=== PATIENT | female | born 1975 | race Caucasian/White ===

== ENCOUNTER 2016-08-01 21:31 | Emergency (ER) | payer SELFPAY ==
[~2016-08-01] VITALS: Ht 160 cm; Wt 52.0 kg
[~2016-08-01 21:31] MED LIST: CLON0.2T PO; METO25 PO
[2016-08-01 22:02] VITALS: BP 121/79; PULSE 92; RESP 16; TEMP 97.8; O2SAT 98
[2016-08-01] MEDS ORDERED: RESP: LIDOCAINE HCL 4% PF 5 ML NEB NEB ONE (22:30)
[2016-08-01] MEDS ORDERED: DEXAMETHASONE SOD PHOS 4 MG/ML VIAL IM ONE (22:30)
--- NOTE | 2016-08-01 22:33 | PD ---
HPI Chief Complaint: Cold / Flu Symptoms Time Seen by Provider: 22:22 Travel History International Travel<30 days: No Contact w/Intl Traveler<30days: No Traveled to known affect area: No History of Present Illness HPI The patient is a 41-year-old female who presents to the emergency department for shortness of breath. The patient has a one-week history of cough and cold symptoms with congestion and a dry nonproductive cough. She also complains of bilateral lower to mid thoracic back pain secondary to coughing. The patient does have a history tobacco use, last cigarette was 5 hours ago. The patient does complain of "rattling" in her lungs. The patient denies any fever, chills, or sweats. The patient does have a history of bronchitis, denies any known history of pulmonary embolism or congestive heart failure. The patient denies any associated fever, chills, or sweats. Symptoms are moderate, possibly exacerbated by recent upper respiratory infection, and there are no current alleviating factors. PFSH Past Medical History Anxiety: Yes Depression: Yes Heart Rhythm Problems: Yes (HX OF TACHYCARDIA) Cancer: No Cardiovascular Problems: Yes Cerebrovascular Accident: Yes (2009 [place] BLIND RIGHT EYE) Diminished Hearing: No Endocrine: No Genitourinary: No Hypertension: Yes (NOT TAKING MEDICATION CURRENTLY) Immune Disorder: No Musculoskeletal: Yes Neurologic: Yes (SEIZURE X 04 JUL 2013) Psychiatric: Yes Reproductive: No Respiratory: No Tetanus Vaccination: < 5 Years Influenza Vaccination: No ?: Not : 5 Para: 4 Miscarriage: 1 Tubal Ligation: Yes Past Surgical History Gynecologic Surgery: Yes (TUBAL 1996) Other Surgery: Yes Social History Alcohol Use: Yes (2 BEERS NIGHTLY) Tobacco Use: Yes (1/2 PPD) Substance Use: Yes (MARIJUANA) Allergies-Medications (Allergen,Severity, Reaction): Coded Allergies: Penicillin (Verified Allergy, Severe, THROAT SWELLING, 08/01/16) Tramadol (Unverified Allergy, Severe, 08/01/16) SEIZURE Reported Meds & Prescriptions Reported Meds & Active Scripts Active No Active Prescriptions or Reported Medications Review of Systems Except as stated in HPI: all other systems reviewed are Neg General / Constitutional: No: Fever Cardiovascular: No: Chest Pain or Discomfort Respiratory: Positive: Cough, Shortness of Breath, Wheezing Gastrointestinal: No: Nausea, Vomiting, Abdominal Pain Musculoskeletal: Positive: Pain (back pain secondary to coughing) Physical Exam Narrative GENERAL: Awake, alert, 41-year-old female who appears her stated age and is in no acute respiratory distress. SKIN: Warm and dry. HEAD: Atraumatic. Normocephalic. EYES: Pupils equal and round. No scleral icterus. No injection or drainage. ENT: Poor dentition, breath smells of alcohol. NECK: Trachea midline. No JVD. CARDIOVASCULAR: Regular rate and rhythm. No murmur appreciated. RESPIRATORY: No accessory muscle use. Scattered rhonchi and a few late expiratory wheezes noted. MUSCULOSKELETAL: No obvious deformities. No clubbing. No cyanosis. No edema. NEUROLOGICAL: Awake and alert. No obvious cranial nerve deficits. Motor grossly within normal limits. Normal speech. PSYCHIATRIC: Appropriate mood and affect; insight and judgment normal. Data Data Last Documented VS Vital Signs Date Time Temp Pulse Resp B/P Pulse Ox O2 Delivery O2 Flow Rate FiO2 08/01/16 22:25 18 100 Room Air 08/01/16 22:02 97.8 92 121/79 Orders Chest, Single Ap (08/01/16 22:27) Oximetry (08/01/16 22:27) Albuterol-Ipratropium Neb (Duoneb Neb) (08/01/16 22:30) Dexamethasone Inj (Decadron Inj) (08/01/16 22:30) Lidocaine Pf 4% Neb (Lidocaine Pf 4% Neb (08/01/16 22:30) MDM Medical Decision Making Medical Screen Exam Complete: Yes Emergency Medical Condition: Yes Medical Record Reviewed: Yes Interpretation(s) Last Impressions Chest X-Ray 08/01/162 Signed Impressions: Service Date/Time: Monday, August 01, 2016 22:53 - CONCLUSION: No acute disease. No significant change has occurred. Pete Torres MD Differential Diagnosis Differential diagnoses includes bronchitis, pneumonia, pulmonary embolism, congestive heart failure, pleural effusion, URI, influenza, viral syndrome. Narrative Course The patient states she has difficulty swallowing pills, therefore, was administered Decadron 8 mg IM. The patient was then administered DuoNeb nebs 3 with respiratory lidocaine and chest x-ray was obtained. Chest x-rays unremarkable. The patient be discharged home on liquid prednisone and Bactrim as well as albuterol inhaler. The patient is advised to follow-up with gastroenterology for outpatient endoscopy as she has difficulty swallowing pills in his progress over the last several years. Patient may need direct visualization with anoscopy. Diagnosis Primary Impression: Bronchitis Patient Instructions: General Instructions Additional Instructions: Medications as directed. Stop smoking. Follow-up with GI on an outpatient basis for possible endoscopy. Return if symptoms worsen or progress. Work excuse for 2 days. Med/Other Pt SpecificInfo: Prescription(s) given Scripts Prednisolone Liq 15 Mg/5 Ml Soln45 Mg PO DAILY 4 Days Ref 0 Prov:Cuauhtemoc Hein MD 08/01/16 Albuterol 18 GM Inh (Ventolin Hfa 18 GM Inh)90 Mcg/Act Aer2 Puff INH Q4H PRN ( SHORTNESS OF BREATH) #1 INHALER Ref 0 Prov:Cuauhtemoc Hein MD 08/01/16 Sulfamethoxazole-Trimethoprim Liq 200-40 Mg/5 Ml Susp20 Ml PO Q12H 7 Days Ref 0 Prov:Cuauhtemoc Hein MD 08/01/16 Disposition: 01 DISCHARGE HOME Condition: Stable Cuauhtemoc Hein MD Aug 01, 2016 22:33
[2016-08-01] MEDS: RESP: ALBUTEROL 2.5 MG/IPRATROPIUM 0.5 MG NEB (SCH) INH ×3 (22:37→23:04)
--- NOTE | 2016-08-01 23:10 | RADHPO ---
EXAM DATE/TIME: 08/01/2016 22:53 [facility] COMPARISON: CHEST SINGLE AP, October 06, 2012, 17:55. INDICATIONS : Shortness of breath, wheezing for 24 hours MEDICAL HISTORY : None. SURGICAL HISTORY : None. ENCOUNTER: Initial ACUITY: 1 day PAIN SCORE: 0/10 LOCATION: Bilateral chest FINDINGS: A single view of the chest demonstrates the lungs to be symmetrically aerated without evidence of mas s, infiltrate or effusion. The cardiomediastinal contours are unremarkable. Osseous structures are intact. CONCLUSION: No acute disease. No significant change has occurred. Pete Torres MD on August 01, 2016 at 23:07 Board Certified Radiologist. This report was verified electronically.
[2016-08-01] MEDS ORDERED: SULF20OR2 PO (23:26)
[2016-08-01] MEDS ORDERED: PRED15UDC PO (23:26)
[2016-08-01] MEDS ORDERED: VENTAER INH (23:26)
[2016-08-01 23:38] VITALS: RESP 18; O2SAT 99
[2016-08-01 23:39] VITALS: BP 118/78
== END 2016-08-01 23:42 | disposition home or self-care (01) ==
LOC: PHEFT 21:31
DX: J40 Bronchitis, not specified as acute or chronic (principal); M54.6 Pain in thoracic spine; I10 Essential (primary) hypertension; R13.10 Dysphagia, unspecified; F17.200 Nicotine dependence, unspecified, uncomplicated; Z87.09 Personal history of other diseases of the respiratory system; Z86.59 Personal history of other mental and behavioral disorders; Z86.79 Personal history of other diseases of the circulatory system; Z87.39 Personal history of other diseases of the musculoskeletal system and connective tissue; Z86.69 Personal history of other diseases of the nervous system and sense organs
CPT/HCPCS: 71010; 94640; 94664; 96372; 99284; J1100

== ENCOUNTER 2016-11-30 09:00 | Inpatient (IN) | payer SELFPAY ==
[~2016-11-30] VITALS: Ht 160 cm; Wt 54.4 kg
[2016-11-30] VITALS (15 sets, daily range): BP systolic 106–135; BP diastolic 70–93; PULSE 72–111; RESP 15–18; TEMP 98.1–99.4; O2SAT 95–100
[~2016-11-30 09:00] MED LIST changes: -CLON0.2T PO; -METO25 PO; +PRED15UDC PO; +SULF20OR2 PO; +VENTAER INH
--- NOTE | 2016-11-30 09:26 | PD ---
HPI Chief Complaint: Right shoulder pain Time Seen by Provider: 09:17 Travel History International Travel<30 days: No Contact w/Intl Traveler<30days: No History of Present Illness HPI 41yo F with PMH of tachycardia, HTN, anxiety presents to the ED with c/o right shoulder pain. States she woke up with ecchymoses on right shoulder 2 weeks ago and then the pain radiates down the right arm with some tingling in the tips of the fingers. Pain also radiates to right chest and is sharp and worst with right arm movement. Pt denies any trauma. States she does feel sob. Denies any fever, n/v, abdominal pain, focal weakness or numbness. States she has not been taking clonidine which helped with her tachycardia because of insurance. Denies any history of PE, DVT, recent travel. PFSH Past Medical History Anxiety: Yes Depression: Yes Heart Rhythm Problems: Yes (HX OF TACHYCARDIA) Cancer: No Cardiovascular Problems: Yes Cerebrovascular Accident: Yes (2009 [place] BLIND RIGHT EYE?) Diminished Hearing: No Endocrine: No Genitourinary: No Hypertension: Yes (NOT TAKING MEDICATION CURRENTLY) Immune Disorder: No Musculoskeletal: Yes Neurologic: Yes (SEIZURE X 04 JUL 2013) Psychiatric: Yes Reproductive: No Respiratory: No Pneumonia: Yes Tetanus Vaccination: < 5 Years Influenza Vaccination: No ?: Not : 5 Para: 4 Miscarriage: 1 Tubal Ligation: Yes Past Surgical History Gynecologic Surgery: Yes (TUBAL 1997) Other Surgery: Yes Social History Alcohol Use: Yes (4 BEERS NIGHTLY) Tobacco Use: Yes (1/2 PPD) Substance Use: Yes (MARIJUANA) Allergies-Medications (Allergen,Severity, Reaction): Coded Allergies: Penicillin (Verified Allergy, Severe, THROAT SWELLING, 11/30/16) Tramadol (Unverified Allergy, Severe, 11/30/16) SEIZURE Reported Meds & Prescriptions Reported Meds & Active Scripts Active No Active Prescriptions or Reported Medications Review of Systems Except as stated in HPI: all other systems reviewed are Neg Physical Exam Narrative GENERAL: 41yo F not in distress. SKIN: Focused skin assessment warm/dry. HEAD: Atraumatic. Normocephalic. CARDIOVASCULAR: Regular rate and rhythm. No murmur appreciated. RESPIRATORY: No accessory muscle use. Clear to auscultation. Breath sounds equal bilaterally. CHEST WALL: +TTP right chest. No rash. Worst pain with right arm movement. GASTROINTESTINAL: Abdomen soft, non-tender, nondistended. RECTAL: No external hemorrhoids. Yellow stool, hemaprompt positive. MUSCULOSKELETAL: RUE: No ecchymoses in right shoulder. Tenderness to light palpation in entire arm. No edema. No erythema. No open wounds. Sensation intact. FROM in digits. Radial pulse 2+. NEUROLOGICAL: Awake and alert. No obvious cranial nerve deficits. Motor grossly within normal limits. Normal speech. PSYCHIATRIC: Anxious appearing. Data Data Last Documented VS Vital Signs Date Time Temp Pulse Resp B/P Pulse Ox O2 Delivery O2 Flow Rate FiO2 11/30/16 11:07 97 18 114/83 99 Room Air 11/30/16 09:18 99.2 Orders Basic Metabolic Panel (Bmp) (11/30/16 09:18) Complete Blood Count With Diff (11/30/16 09:18) D-Dimer (11/30/16 09:18) Magnesium (Mg) (11/30/16 09:18) Prothrombin Time / Inr (Pt) (11/30/16 09:18) Act Partial Throm Time (Ptt) (11/30/16 09:18) Troponin I (11/30/16 09:18) Chest, Single Ap (11/30/16 09:18) Ecg Monitoring (11/30/16 09:18) Bilateral Bp Monitoring (11/30/16 09:18) Iv Access Insert/Monitor (11/30/16 09:18) Oximetry (11/30/16 09:18) Oxygen Administration (11/30/16 09:18) Shoulder, Limited(2vws) (11/30/16 ) Forearm (2vws) (11/30/16 ) Clonidine (Catapres) (11/30/16 09:30) Sodium Chlor 0.9% 1000 Ml Inj (Ns 1000 M (11/30/16 09:30) Lorazepam Inj (Ativan Inj) (11/30/16 09:30) Bhcg Screen Qualitative (11/30/16 09:25) Ct Pulmonary Angiogram (11/30/16 ) Type And Screen (11/30/16 11:09) Red Blood Cells (Rbc) (11/30/16 11:09) Blood Product Administration .UPON TRANSFUSION (11/30/16 11:09) Sodium Chlor 0.9% 250 Ml Inj (Ns 250 Ml (11/30/16 11:15) Iohexol 350 Inj (Omnipaque 350 Inj) (11/30/16 11:10) Pantoprazole Inj (Protonix Inj) (11/30/16 11:30) Admit Order (Ed Use Only) (11/30/16 11:57) Admit To Inpatient (11/30/16 ) Vital Signs (Adult) Q4H (11/30/16 11:56) Activity Oob Ad Lara (11/30/16 11:56) Fish Straightener / Telemetry .CONTINUOUS (11/30/16 11:56) Diet Heart Healthy (11/30/16 Lunch) Sodium Chloride 0.9% Flush (Ns Flush) (11/30/16 12:00) Sodium Chloride 0.9% Flush (Ns Flush) (11/30/16 21:00) Acetaminophen (Tylenol) (11/30/16 12:00) Ondansetron Inj (Zofran Inj) (11/30/16 12:00) Basic Metabolic Panel (Bmp) (12/01/16 06:00) Complete Blood Count With Diff (12/01/16 06:00) Resp Oxygen Nilay C Titrat 1-4 L (11/30/16 ) Scd Bilateral/Knee High UMESH.BID (11/30/16 11:56) Naloxone Inj (Narcan Inj) (11/30/16 12:00) Docusate Sodium-Senna (Marisol-Colace) (11/30/16 21:00) Magnesium Hydroxide Liq (Milk Of Magnesi (11/30/16 12:00) Sennosides (Senokot) (11/30/16 12:00) Bisacodyl Supp (Dulcolax Supp) (11/30/16 12:00) Lactulose Liq (Lactulose Liq) (11/30/16 12:00) Inpatient Certification (11/30/16 ) Consult Gastroenterology (11/30/16 ) Iron/Tibc Profile (11/30/16 11:56) Ferritin (11/30/16 11:56) Labs Laboratory Tests Test 11/30/16 09:25 White Blood Count 5.3 TH/MM3 Red Blood Count 3.51 MIL/MM3 Hemoglobin 7.1 GM/DL Hematocrit 24.3 % Mean Corpuscular Volume 69.2 FL Mean Corpuscular Hemoglobin 20.1 PG Mean Corpuscular Hemoglobin 29.0 % Concent Red Cell Distribution Width 22.9 % Platelet Count 247 TH/MM3 Mean Platelet Volume 7.9 FL Neutrophils (%) (Auto) % Lymphocytes (%) (Auto) % Monocytes (%) (Auto) % Eosinophils (%) (Auto) % Basophils (%) (Auto) % Neutrophils # (Auto) TH/MM3 Lymphocytes # (Auto) TH/MM3 Monocytes # (Auto) TH/MM3 Eosinophils # (Auto) TH/MM3 Basophils # (Auto) TH/MM3 CBC Comment AUTO DIFF Differential Total Cells 100 Counted Neutrophils % (Manual) 60 % Lymphocytes % 27 % Monocytes % 5 % Eosinophils % 5 % Basophils % 3 % Neutrophils # (Manual) 3.2 TH/MM3 Differential Comment FINAL DIFF MANUAL Platelet Morphology Comment NORMAL Target Cells 2+ Ovalocytes 1+ Stomatocytes 2+ Prothrombin Time 11.2 SEC Prothromb Time International 1.0 RATIO Ratio Activated Partial 25.1 SEC Thromboplast Time D-Dimer Quantitative (PE/DVT) 0.54 MG/L FEU Sodium Level 149 MEQ/L Potassium Level 3.5 MEQ/L Chloride Level 112 MEQ/L Carbon Dioxide Level 29.1 MEQ/L Anion Gap 8 MEQ/L Blood Urea Nitrogen LESS THAN 1 MG/DL Creatinine 0.42 MG/DL Estimat Glomerular Filtration 165 ML/MIN Rate Random Glucose 120 MG/DL Calcium Level 7.8 MG/DL Magnesium Level 2.1 MG/DL Troponin I LESS THAN 0.02 NG/ML Beta HCG, Qualitative LESS THAN 1 MIU/ML MDM Medical Decision Making Medical Screen Exam Complete: Yes Emergency Medical Condition: Yes Interpretation(s) EKG: Sinus tachycardia at 115bpm. Normal axis. No ST segment elevation or depression. Laboratory Tests Test 11/30/16 09:25 White Blood Count 5.3 TH/MM3 (4.0-11.0) Red Blood Count 3.51 MIL/MM3 (4.00-5.30) Hemoglobin 7.1 GM/DL (11.6-15.3) Hematocrit 24.3 % (35.0-46.0) Mean Corpuscular Volume 69.2 FL (80.0-100.0) Mean Corpuscular Hemoglobin 20.1 PG (27.0-34.0) Mean Corpuscular Hemoglobin 29.0 % Concent (32.0-36.0) Red Cell Distribution Width 22.9 % (11.6-17.2) Platelet Count 247 TH/MM3 (150-450) Mean Platelet Volume 7.9 FL (7.0-11.0) Neutrophils (%) (Auto) % (16.0-70.0) Lymphocytes (%) (Auto) % (9.0-44.0) Monocytes (%) (Auto) % (0.0-8.0) Eosinophils (%) (Auto) % (0.0-4.0) Basophils (%) (Auto) % (0.0-2.0) Neutrophils # (Auto) TH/MM3 (1.8-7.7) Lymphocytes # (Auto) TH/MM3 (1.0-4.8) Monocytes # (Auto) TH/MM3 (0-0.9) Eosinophils # (Auto) TH/MM3 (0-0.4) Basophils # (Auto) TH/MM3 (0-0.2) CBC Comment AUTO DIFF Differential Total Cells 100 Counted Neutrophils % (Manual) 60 % (16-70) Lymphocytes % 27 % (9-44) Monocytes % 5 % (0-8) Eosinophils % 5 % (0-4) Basophils % 3 % (0-2) Neutrophils # (Manual) 3.2 TH/MM3 (1.8-7.7) Differential Comment FINAL DIFF MANUAL Platelet Morphology Comment NORMAL (NORMAL) Target Cells 2+ (NORMAL) Ovalocytes 1+ (NORMAL) Stomatocytes 2+ (NORMAL) Prothrombin Time 11.2 SEC (9.8-11.6) Prothromb Time International 1.0 RATIO Ratio Activated Partial 25.1 SEC Thromboplast Time (24.3-30.1) D-Dimer Quantitative (PE/DVT) 0.54 MG/L FEU (0.00-0.50) Sodium Level 149 MEQ/L (136-145) Potassium Level 3.5 MEQ/L (3.5-5.1) Chloride Level 112 MEQ/L (98-107) Carbon Dioxide Level 29.1 MEQ/L (21.0-32.0) Anion Gap 8 MEQ/L (5-15) Blood Urea Nitrogen LESS THAN 1 MG/DL (7-18) Creatinine 0.42 MG/DL (0.50-1.00) Estimat Glomerular Filtration 165 ML/MIN Rate (>89) Random Glucose 120 MG/DL (74-106) Calcium Level 7.8 MG/DL (8.5-10.1) Magnesium Level 2.1 MG/DL (1.5-2.5) Troponin I LESS THAN 0.02 NG/ML (0.02-0.05) Beta HCG, Qualitative LESS THAN 1 MIU/ML (0-5) Last Impressions Chest X-Ray 11/30/16 0918 Signed Impressions: Service Date/Time: Wednesday, November 30, 2016 09:48 - CONCLUSION: No acute disease. Steven Knox MD Shoulder X-Ray 11/30/16 0000 Signed Impressions: Service Date/Time: Wednesday, November 30, 2016 09:52 - CONCLUSION: Negative for fracture or dislocation. Follow up in 7-10 days is suggested if symptoms persist. Kris Foster MD FACR Radius/Ulna X-Ray 11/30/16 0000 Signed Impressions: Service Date/Time: Wednesday, November 30, 2016 09:59 - CONCLUSION: Negative for fracture or dislocation. Follow up in 7-10 days is suggested if symptoms persist. Kris Foster MD FACR CT Angiography 11/30/16 0000 Signed Impressions: Service Date/Time: Wednesday, November 30, 2016 10:40 - CONCLUSION: 1. No evidence of pulmonary embolism. 2. Cardiomegaly. 3. Minimal posterior bibasilar atelectasis. 4. Enlarged fatty liver. Israel Naranjo MD Differential Diagnosis Musculoskeletal pain vs. atypical pain vs. anxiety vs. dehydration vs. PE Narrative Course 41yo F with atypical right sided chest pain and sob. Labs reviewed, no leukocytosis. H/H is 7.1/24.3. Upon further questioning, pt states she does have a few weeks of black stool. Stool is yellow but hemaprompt positive. Since pt is symptomatic with sob, will transfuse 1 unit of PRBC and give protonix. Pt admits to drinking alcohol daily but never had GI bleed. Sodium is elevated at 149. Troponin is negative. is negative. CXR negative. Xray right forearm negative. Xray right shoulder negative. D-dimer is mildly elevated at 0.54, will obtain CT angio to rule out PE. CT angio negative for PE. Pt initially tachycardic at 110s-120s. Given clonidine, ativan and HR is now 90s. Discussed with Dr. Cotto and accepted to his service. [facility] Point of Care Internal Pos. & Neg. Controls: Passed Fecal Specimen Occult Blood: Positive Diagnosis Primary Impression: Symptomatic anemia Admitting Information Admitting Physician Requests: Observation Scripts No Active Prescriptions or Reported Meds Griselda Carrillo DO Nov 30, 2016 09:26
[2016-11-30 09:30] LABS: HEMATOCRIT 24.3 % (35.0-46.0); MEAN CELL VOLUME 69.2 FL (80.0-100.0); MEAN CORPUSCULAR HEMOGLOBIN 20.1 PG (27.0-34.0); PLATELET COUNT 247 TH/MM3 (150-450); RED BLOOD COUNT 3.51 MIL/MM3 (4.00-5.30); RED CELL DISTRIBUTION WIDTH 22.9 % (11.6-17.2); WHITE BLOOD COUNT 5.3 TH/MM3 (4.0-11.0)
[2016-11-30] MEDS ORDERED: SODIUM CHLOR 0.9% 1000 ML INJ 1,000 ML IV ONE (09:30)
[2016-11-30] MEDS ORDERED: LORazepam 2 MG/ML VIAL IV PUSH ONE (09:30)
[2016-11-30] MEDS ORDERED: cloNIDine HCL 0.1 MG TAB PO ONE (09:30)
[2016-11-30 09:44] LABS: HEMO FLAGS AUTO DIFF
[2016-11-30 09:50] LABS: BICARBONATE 29.1 MEQ/L (21.0-32.0); BLOOD UREA NITROGEN LESS THAN 1 MG/DL (7-18); MAGNESIUM 2.1 MG/DL (1.5-2.5)
[2016-11-30 09:53] LABS: APTT (PATIENT) 25.1 SEC (24.3-30.1); GLOMERULAR FILTRATION RATE 165 ML/MIN (>89); PROTHROMBIN TIME - PATIENT 11.2 SEC (9.8-11.6)
[2016-11-30 09:55] LABS: ANION GAP 8 MEQ/L (5-15); CHLORIDE 112 MEQ/L (98-107); POTASSIUM 3.5 MEQ/L (3.5-5.1); SODIUM (NA) 149 MEQ/L (136-145)
[2016-11-30 09:58] LABS: BHCG SCREEN QUALITATIVE LESS THAN 1 MIU/ML (0-5)
--- NOTE | 2016-11-30 10:09 | RADRPT ---
EXAM DATE/TIME: 11/30/2016 09:52 [facility] COMPARISON: No previous studies available for comparison. INDICATIONS : Right shoulder pain with no known injury MEDICAL HISTORY : Hypertension. Smoker, Mini stroke SURGICAL HISTORY : None. ENCOUNTER: Initial ACUITY: 2 weeks PAIN SCORE: 5/10 LOCATION: Right anterior shoulder FINDINGS: Two view examination of the right shoulder demonstrates no evidence of fracture or dislocation. The glenohumeral and acromioclavicular joints are maintained. Bony mineralization is normal. CONCLUSION: Negative for fracture or dislocation. Follow up in 7-10 days is suggested if symptoms persist. Kris Foster MD FACR on November 30, 2016 at 10:05 Board Certified Radiologist. This report was verified electronically.
--- NOTE | 2016-11-30 10:12 | RADRPT ---
EXAM DATE/TIME: 11/30/2016 09:59 [facility] COMPARISON: No previous studies available for comparison. INDICATIONS : Right forearm pain with no known injury MEDICAL HISTORY : None. SURGICAL HISTORY : None. ENCOUNTER: Initial ACUITY: 2 weeks PAIN SCORE: 5/10 LOCATION: Right anterior forearm FINDINGS: Two view examination of the right forearm demonstrates no evidence of fracture or dislocation. Bony mineralization is normal. The soft tissue structures are intact. CONCLUSION: Negative for fracture or dislocation. Follow up in 7-10 days is suggested if symptoms persist. Kris Foster MD FACR on November 30, 2016 at 10:09 Board Certified Radiologist. This report was verified electronically.
--- NOTE | 2016-11-30 10:14 | RADRPT ---
EXAM DATE/TIME: 11/30/2016 09:48 [facility] COMPARISON: CHEST SINGLE AP, August 01, 2016, 22:53. INDICATIONS : Chest pain MEDICAL HISTORY : Hypertension. Smoker, Mini stroke SURGICAL HISTORY : None. ENCOUNTER: Initial ACUITY: 2 weeks PAIN SCORE: 5/10 LOCATION: Right anterior Chest FINDINGS: A single view of the chest demonstrates the lungs to be symmetrically aerated without evidence of mas s, infiltrate or effusion. The cardiomediastinal contours are unremarkable. Osseous structures are intact. CONCLUSION: No acute disease. Steven Knox MD on November 30, 2016 at 10:11 Board Certified Radiologist. This report was verified electronically.
[2016-11-30 10:42] LABS: BASOPHILS 3 % (0-2); EOSINOPHILS 5 % (0-4); NEUTROPHIL # MANUAL DIFF 3.2 TH/MM3 (1.8-7.7); POLYS (SEG NEUTROPHILS) 60 % (16-70); TARGET CELLS 2+ (NORMAL); WBC DIFF SAMPLE 100
[2016-11-30 10:43] LABS: OVALOCYTES 1+ (NORMAL); PLATELET MORPHOLOGY NORMAL (NORMAL); SCAN/DIFF FINAL DIFF MANUAL; SLIDE REVIEW N; STOMATOCYTES 2+ (NORMAL)
[2016-11-30] MEDS ORDERED: IOHEXOL 350 MG/ML 10 ML VIAL (for RAD DIAG) IV ONE (11:10)
[2016-11-30] MEDS ORDERED: SODIUM CHLOR 0.9% 250 ML INJ 250 ML IV ONE ×2 (11:15→12:15)
--- NOTE | 2016-11-30 11:20 | RADRPT ---
EXAM DATE/TIME: 11/30/2016 10:40 [facility] COMPARISON: No previous studies available for comparison. INDICATIONS : Right chest and arm pain. Shortness of breath. IV CONTRAST: 70 cc Omnipaque 350 (iohexol) IV RADIATION DOSE: 7.00 CTDIvol (mGy) MEDICAL HISTORY : None SURGICAL HISTORY : None. ENCOUNTER: Initial ACUITY: 1 day PAIN SCALE: 7/10 LOCATION: Right chest TECHNIQUE: Volumetric scanning of the chest was performed using a pulmonary embolism protocol MIP images were re constructed. Using automated exposure control and adjustment of the mA and/or kV according to patien t size, radiation dose was kept as low as reasonably achievable to obtain optimal diagnostic quality images. DICOM format image data is available electronically for review and comparison. FINDINGS: PULMONARY ARTERIES: No filling defects are seen in the pulmonary arteries through the segmental level. LUNGS: There is no consolidation or pneumothorax . No concerning pulmonary nodule is visualized. Minimal po sterior bibasilar atelectasis is noted. PLEURAE: There is no pleural thickening or pleural effusion. MEDIASTINUM: There is good visualization of the great vessels of the middle mediastinum. No evidence of mediastin al or hilar adenopathy/mass. Cardiomegaly is noted. MUSCULOSKELETAL: Within normal limits for patient age. MISCELLANEOUS: The liver is enlarged and demonstrates diffuse fatty infiltration. CONCLUSION: 1. No evidence of pulmonary embolism. 2. Cardiomegaly. 3. Minimal posterior bibasilar atelectasis. 4. Enlarged fatty liver. Israel Naranjo MD on November 30, 2016 at 11:14 Board Certified Radiologist. This report was verified electronically.
[2016-11-30] MEDS ORDERED: PANTOPRAZOLE SODIUM 40 MG VIAL IV PUSH ONE (11:30)
[2016-11-30] MEDS ORDERED: LACTULOSE SYRUP 20 GM/30 ML CUP PO PRN (12:00)
[2016-11-30] MEDS ORDERED: SODIUM CHLORIDE 0.9% FLUSH 10 ML FLUSH IV FLUSH PRN (12:00)
[2016-11-30] MEDS ORDERED: MAGNESIUM HYDROXIDE SUSP 30 ML CUP PO PRN (12:00)
[2016-11-30] MEDS ORDERED: ONDANSETRON HCL 4 MG/2 ML VIAL IVP PRN (12:00)
[2016-11-30] MEDS ORDERED: ACETAMINOPHEN 325 MG TAB PO PRN ×2 (12:00→12:15)
[2016-11-30] MEDS ORDERED: BISACODYL 10 MG SUPP RECTAL PRN (12:00)
[2016-11-30] MEDS ORDERED: NALOXONE HCL 0.4 MG/ML AMP IV PRN (12:00)
[2016-11-30] MEDS ORDERED: SENNOSIDES 8.6 MG TAB PO PRN (12:00)
[2016-11-30] MEDS ORDERED: diphenhydrAMINE HCL 25 MG CAP PO PRN (12:15)
--- NOTE | 2016-11-30 13:25 | HHI.HP ---
[facility] No Primary Care Physician Admission Diagnosis Symptomatic anemia Diagnoses: Chief Complaint: Right shoulder pain, and anemia. Travel History International Travel<30 Days: No Contact w/Intl Traveler <30 Da: No Traveled to Known Affected Are: No History of Present Illness Ms. Monaco is a 41-year-old female with a history of hypertension, tachycardia, alcohol abuse who presented to the emergency department on 11/30/2016 due to right shoulder pain. Approximately 2 weeks ago patient reports waking up and noticed a bruise on her right shoulder. In addition to bruise she also experienced shoulder pain radiating down her right arm and a feeling of her forearm pulling upward. In the last 1 week patient also reports some chest discomfort as well without any nausea vomiting or diaphoresis. Patient also reports feeling fatigued in the last 1-2 months. She also noticed dark stool in the last 7 days or so. She denies any cough, fever or chills. No abdominal pain. She admits to irregular menstruation with menorrhagia. No changes in bowel or bladder habits. ED workup indicated anemia with hemoglobin 7.1 and guaiac positive stool. Review of Systems Except as stated in HPI: all other systems reviewed are Neg Past Family Social History Past Medical History Tachycardia, possible CVA in 2009, seizure activity in 2013, anxiety. Past Surgical History Tubal ligation 1996. Reported Medications Patient does not take any medications on a regular basis. Allergies: Coded Allergies: Penicillin (Verified Allergy, Severe, THROAT SWELLING, 11/30/16) Tramadol (Unverified Allergy, Severe, 11/30/16) SEIZURE Family History Father committed suicide. Mother from cervical cancer. Social History Patient drinks approximately 4 beers nightly. Smokes half a pack a day. Occasionally uses marijuana as well. Physical Exam Vital Signs Vital Signs Date Time Temp Pulse Resp B/P Pulse Ox O2 Delivery O2 Flow Rate FiO2 11/30/16 12:56 72 18 125/80 99 Room Air 11/30/16 11:07 97 18 114/83 99 Room Air 11/30/16 10:38 90 16 106/70 99 Room Air 11/30/16 09:39 115/74 124/76 11/30/16 09:23 11/30/16 09:22 98 Room Air 11/30/16 09:22 98 Room Air 11/30/16 09:18 99.2 111 18 134/78 98 Room Air Physical Exam GENERAL: This is a well-nourished, well-developed patient, in no apparent distress. SKIN: No rashes, ecchymoses or lesions. Warm and dry. HEAD: Atraumatic. Normocephalic. No temporal or scalp tenderness. EYES: Pupils equal round and reactive. No injection or drainage. ENT: Nose without bleeding, purulent drainage or septal hematoma. Airway patent. NECK: Trachea midline. No lymphadenopathy. Supple, nontender, no meningeal signs. CARDIOVASCULAR: Regular rhythm, mildly tachycardic without murmurs, gallops, or rubs. No JVD. RESPIRATORY: Clear to auscultation. Breath sounds equal bilaterally. No wheezes , rales, or rhonchi. GASTROINTESTINAL: Abdomen soft, non-tender, nondistended. No guarding. MUSCULOSKELETAL: Extremities without clubbing, cyanosis, or edema. NEUROLOGICAL: Awake and alert. Cranial nerves II through XII intact. No focal neurological deficits. Normal speech. Laboratory Laboratory Tests Test 11/30/16 11/30/16 09:25 10:20 White Blood Count 5.3 Red Blood Count 3.51 Hemoglobin 7.1 Hematocrit 24.3 Mean Corpuscular Volume 69.2 Mean Corpuscular Hemoglobin 20.1 Mean Corpuscular Hemoglobin 29.0 Concent Red Cell Distribution Width 22.9 Platelet Count 247 Mean Platelet Volume 7.9 Neutrophils (%) (Auto) Lymphocytes (%) (Auto) Monocytes (%) (Auto) Eosinophils (%) (Auto) Basophils (%) (Auto) Neutrophils # (Auto) Lymphocytes # (Auto) Monocytes # (Auto) Eosinophils # (Auto) Basophils # (Auto) CBC Comment AUTO DIFF Differential Total Cells 100 Counted Neutrophils % (Manual) 60 Lymphocytes % 27 Monocytes % 5 Eosinophils % 5 Basophils % 3 Neutrophils # (Manual) 3.2 Differential Comment FINAL DIFF MANUAL Platelet Morphology Comment NORMAL Target Cells 2+ Ovalocytes 1+ Stomatocytes 2+ Prothrombin Time 11.2 Prothromb Time International 1.0 Ratio Activated Partial 25.1 Thromboplast Time D-Dimer Quantitative (PE/DVT) 0.54 Sodium Level 149 Potassium Level 3.5 Chloride Level 112 Carbon Dioxide Level 29.1 Anion Gap 8 Blood Urea Nitrogen LESS THAN 1 Creatinine 0.42 Estimat Glomerular Filtration 165 Rate Random Glucose 120 Calcium Level 7.8 Magnesium Level 2.1 Troponin I LESS THAN 0.02 Beta HCG, Qualitative LESS THAN 1 Blood Type A POSITIVE Result Diagram: 11/30/1692411/30/16924 Imaging Last Impressions Chest X-Ray 11/30/1618 Signed Impressions: Service Date/Time: Wednesday, November 30, 2016 09:48 - CONCLUSION: No acute disease. Steven Knox MD Shoulder X-Ray 11/30/16 0000 Signed Impressions: Service Date/Time: Wednesday, November 30, 2016 09:52 - CONCLUSION: Negative for fracture or dislocation. Follow up in 7-10 days is suggested if symptoms persist. Kris Foster MD FACR Radius/Ulna X-Ray 11/30/16 0000 Signed Impressions: Service Date/Time: Wednesday, November 30, 2016 09:59 - CONCLUSION: Negative for fracture or dislocation. Follow up in 7-10 days is suggested if symptoms persist. Kris Foster MD FACR CT Angiography 11/30/16 0000 Signed Impressions: Service Date/Time: Wednesday, November 30, 2016 10:40 - CONCLUSION: 1. No evidence of pulmonary embolism. 2. Cardiomegaly. 3. Minimal posterior bibasilar atelectasis. 4. Enlarged fatty liver. Israel Naranjo MD Assessment and Plan Problem List: (1) Microcytic hypochromic anemia ICD Code: D50.9 Status: Acute (2) Hypernatremia ICD Code: E87.0 Status: Acute (3) Right shoulder pain ICD Code: M25.511 Status: Acute (4) Tobacco abuse ICD Code: Z72.0 Status: Acute (5) Alcohol abuse ICD Code: F10.10 Status: Acute Assessment and Plan Ms. Monaco is a pleasant 41-year-old female with a history of hypertension, tachycardia, anxiety and alcohol abuse who presented to the emergency department on 11/30/2016 due to right shoulder pain that started 2 weeks ago. Patient also reported some chest discomfort in the last one week. Patient also reports feeling fatigued in the last 1-2 months. ED workup indicated anemia with hemoglobin 7.1. - Symptomatic anemia - Microcytic hypochromic anemia - Possibly multifactorial - alcoholism, GI blood loss, menorrhagia - Will obtain Iron studies including ferritin level. - Transfuse total of two units of PRBCs. ED ordered one unit. - GI consult for possible EGD/Colonoscopy. - Chest pain - atypical. - Will obtain Troponins x 3 to rule out acute coronary syndrome. - Right shoulder pain - Bruise two weeks ago - unknown etiology. However, alcohol intoxication related injury is a possibility. - Shoulder x-ray reviewed by me. No acute findings. - We'll obtain shoulder MRI. - Consult physical therapy. - Hypernatremia - Na 149. - Will start patient on 1/2 NS @ 100cc/hour. - CBC, BMP in the AM. - Alcohol abuse - Tobacco abuse - Start patient on Librium 10mg QID PRN and CIWA protocol. - Start Folic acid 1mg Qday and Thiamine 100mg IV X 3 days then PO. - Menorrhagia - Long standing problem. We will advise patient to see CENTRAL CONTROL ROOM OPERATOR in the outpatient setting. - Case management consult for patient's assistance. Full code. SCDs. Physician Certification 2 Midnight Certification Type: Admission for Inpatient Services Order for Inpatient Services The services are ordered in accordance with Medicare regulations or non- Medicare payer requirements, as applicable. In the case of services not specified as inpatient-only, they are appropriately provided as inpatient services in accordance with the 2-midnight benchmark. Estimated LOS (days): 2 days is the estimated time the patient will need to remain in the hospital, assuming treatment plan goals are met and no additional complications. Post-Hospital Plan: Home Sabrina Cotto DO Nov 30, 2016 1:25 pm
[2016-11-30] MEDS ORDERED: LORazepam 2 MG/ML VIAL IV PUSH PRN ×3 (14:15)
[2016-11-30] MEDS ORDERED: LORazepam 1 MG TAB PO PRN (14:15)
[2016-11-30] MEDS ORDERED: LORazepam 2 MG TAB PO PRN (14:15)
[2016-11-30] MEDS ORDERED: FLUMAZENIL 0.5 MG/5 ML VIAL IV PUSH PRN (14:15)
--- NOTE | 2016-11-30 14:32 | EKG ---
Date Performed: 11/30/2016 Time Performed: 09:08:28 PTAGE: 41 years EKG: SINUS TACHYCARDIA POSSIBLE LEFT ATRIAL ENLARGEMENT ABNORMAL RHYTHM ECG NO SIGNIFICANT STARR E FROM PRIOR ELECTROCARDIOGRAM. PREVIOUS TRACING : 08/28/2013 12.00 DOCTOR: Jose L Garcia Interpretating Date/Time 11/30/2016 14:31:45
[2016-11-30] MEDS ORDERED: SODIUM CHLOR 0.45% 1000 ML INJ 1,000 ML IV SCH (15:00)
[2016-11-30] MEDS ORDERED: cloNIDine HCL 0.1 MG TAB PO PRN (15:00)
[2016-11-30] MEDS ORDERED: FOLIC ACID 1 MG TAB PO ONE (15:00)
[2016-11-30] MEDS ORDERED: diphenhydrAMINE HCL 50 MG/ML VIAL IM PRN (16:00)
[2016-11-30] MEDS ORDERED: ACETAMINOPHEN 325 MG/10.15 ML UDC PO PRN (16:00)
[2016-11-30] MEDS ORDERED: THIAMINE INJ 100 MG in SODIUM CHLORIDE 0.9% INJ 100 ML IV ONE (16:00)
[2016-11-30 16:17] LABS: TRANSFERRIN IRON PROFILE 211 MG/DL (200-360)
[2016-11-30 16:20] LABS: FERRITIN 9 NG/ML (8-252)
--- NOTE | 2016-11-30 18:17 | MB ---
cc: MONICA BENNETT BEATRICE S. M.D. DATE OF CONSULTATION: 11/30/2016. REASON FOR CONSULTATION: Anemia with weight loss and difficulty swallowing. REFERRING PHYSICIAN: Dr. Monica Bennett. HISTORY OF PRESENT ILLNESS: Ms. Monaco is a 42-year-old lady with history of high blood pressure, tachycardia, alcohol abuse who came to the emergency room with shoulder pain. She was found to have severe anemia. The patient reports having difficulty swallowing for the last couple of months. She does have decreased appetite, constipation, abdominal pain, distension and nausea. No vomiting. She also reports having a 6 to 7 pound weight loss for the last couple of months. The patient reports having heavy menses and occasional rectal bleed. She has never had endoscopy and colonoscopy and has never had any kind of GI workup in the past. There is a family history of multiple cancers, none GI . PAST MEDICAL HISTORY: 1. Tachycardia. 2. Questionable CVA in 2009. 3. Seizure activity. 4. Anxiety. PAST SURGICAL HISTORY: Tubal ligation. MEDICATIONS AT HOME: None. ALLERGIES: 1. PENICILLIN. 2. TRAMADOL. SOCIAL HISTORY: Drinks four beers nightly. [id number]-a-day. Occasional marijuana. PHYSICAL EXAMINATION: GENERAL: On clinical exam, she is sitting in bed in no acute distress, pale. VITAL SIGNS: Temperature 98.4, heart rate is 82, respirations 16, blood pressure 135/81, pulse of 100. HEAD, EYES, EARS, NOSE, THROAT: Pupils equal, round and reactive to light and accommodation. Pale. NECK: No jugular venous distention. No lymphadenopathy. CHEST: Clear to auscultation and palpation. CARDIOVASCULAR: S1 and S2 no murmur. ABDOMEN: Abdomen soft and nontender. Bowel sounds are present. KILN BURNER HELPER: Awake, alert and oriented times three. No focal signs identified. IMAGING STUDIES: The patient had a CTA to rule out pulmonary emboli, which showed cardiomegaly and enlarged liver. LABORATORY DATA: Her hemoglobin on admission was 7.1 with an MCV is 69, platelets 247,000. Her PT/INR normal. Her liver enzymes were not done. Her iron saturation is 3.7, glucose 120. IMPRESSION: The patient has iron deficiency anemia that looks chronic concerning for possible malignancy in view of her symptoms, history of alcohol abuse possibly contributing to his anemia. RECOMMENDATIONS: 1. CT abdomen and pelvis. 2. Liver enzymes. 3. May need endoscopy and colonoscopy based on the above results. 4. Transfuse p.r.n. to keep hemoglobin more than 8. 5. Supportive care. 6. Avoid alcohol. Thank you for referring her to our office for consultation. The risks and benefits of the above procedures were discussed with the patient and she is agreeing with it. MD BE Tran/JCC /6:02 PM /6:11 PM
[2016-11-30] MEDS: DOCUSATE SODIUM 50 MG/SENNA 8.6 MG TAB PO SCH (19:26)
[2016-11-30] MEDS: SODIUM CHLORIDE 0.9% FLUSH 10 ML FLUSH IV FLUSH SCH (19:26)
[2016-11-30] MEDS: LORazepam 2 MG/ML VIAL IV PUSH PRN (20:38)
[2016-12-01] VITALS (10 sets, daily range): BP systolic 110–129; BP diastolic 73–87; PULSE 93–102; RESP 16–21; TEMP 98.1–99.4; O2SAT 95–100
[2016-12-01 00:29] LABS: HEMATOCRIT 30.3 % (35.0-46.0)
[2016-12-01 00:31] LABS: REVIEW FLAG FINAL
[2016-12-01 07:23] LABS: AUTOMATED NEUTROPHIL # 6.4 TH/MM3 (1.8-7.7); BASOPHIL # 0.1 TH/MM3 (0-0.2); BASOPHIL % 0.6 % (0.0-2.0); EOSINOPHIL # 0.1 TH/MM3 (0-0.4); EOSINOPHIL % 0.7 % (0.0-4.0); HEMATOCRIT 32.4 % (35.0-46.0); LYMPH % 15.3 % (9.0-44.0); LYMPHOCYTE # 1.3 TH/MM3 (1.0-4.8); MEAN CELL VOLUME 72.9 FL (80.0-100.0); MEAN CORPUSCULAR HEMOGLOBIN 22.1 PG (27.0-34.0); MEAN CORPUSCULAR HGB CONC 30.4 % (32.0-36.0); MONO % 8.8 % (0.0-8.0); NEUT % 74.6 % (16.0-70.0); PLATELET COUNT 212 TH/MM3 (150-450); RED BLOOD COUNT 4.44 MIL/MM3 (4.00-5.30); RED CELL DISTRIBUTION WIDTH 22.8 % (11.6-17.2); WHITE BLOOD COUNT 8.7 TH/MM3 (4.0-11.0)
[2016-12-01 07:29] LABS: POTASSIUM 3.3 MEQ/L (3.5-5.1)
[2016-12-01 07:32] LABS: HEMO FLAGS AUTO DIFF
[2016-12-01 07:35] LABS: BICARBONATE 25.3 MEQ/L (21.0-32.0)
[2016-12-01 07:54] LABS: OVALOCYTES 1+ (NORMAL); PLATELET ESTIMATE SMEAR NORMAL (NORMAL); PLATELET MORPHOLOGY NORMAL (NORMAL); ROULEAUX PRESENT (NORMAL); SCAN/DIFF AUTO DIFF CONFIRMED; TARGET CELLS 1+ (NORMAL)
[2016-12-01] MEDS: DOCUSATE SODIUM 50 MG/SENNA 8.6 MG TAB PO SCH ×2 (08:55→21:00)
[2016-12-01] MEDS: FOLIC ACID 1 MG TAB PO SCH (08:55)
[2016-12-01] MEDS: amLODIPine BESYLATE 5 MG TAB PO SCH (08:55)
[2016-12-01] MEDS: SODIUM CHLORIDE 0.9% FLUSH 10 ML FLUSH IV FLUSH SCH ×2 (09:00→21:00)
[2016-12-01] MEDS: THIAMINE INJ 100 MG in SODIUM CHLORIDE 0.9% INJ 100 ML IV SCH (09:00)
[2016-12-01] MEDS ORDERED: DIATRIZOATE MEGLUM/DIATRIZOATE SOD 9 ML CUP PO ONE (09:00)
[2016-12-01] MEDS: oxyCODONE/ACETAMINOPHEN 5 MG/325 MG TAB PO PRN (10:55)
[2016-12-01] MEDS ORDERED: IOHEXOL 350 MG/ML 10 ML VIAL (for RAD DIAG) IV ONE (11:30)
--- NOTE | 2016-12-01 11:43 | HHI.PR ---
Subjective Remarks Follow up for right shoulder pain, symptomatic anemia. Patient still has shoulder pain. No chest pain. No black stool. No fever, chills. Objective Vitals Vital Signs Date Time Temp Pulse Resp B/P Pulse Ox O2 Delivery O2 Flow Rate FiO2 12/01/16 08:27 96 12/01/16 08:00 99.3 93 18 112/75 95 12/01/16 04:00 98.5 97 16 110/73 96 12/01/16 00:00 99.4 100 18 129/85 95 11/30/16 21:30 99.0 78 18 134/93 100 11/30/16 20:10 98 21 11/30/16 20:00 73 11/30/16 20:00 99.2 78 18 134/93 100 11/30/16 18:24 98.6 93 15 134/85 95 11/30/16 18:23 98.1 83 15 134/86 99 11/30/16 17:00 98 21 11/30/16 16:13 98.4 82 16 135/81 100 Room Air 11/30/16 15:24 98.4 85 18 117/81 98 Room Air 11/30/16 15:10 99.4 86 18 114/80 98 Room Air 11/30/16 12:56 72 18 125/80 99 Room Air I/O 11/30/16 11/30/16 11/30/16 12/01/16 12/01/16 12/01/16 07:00 15:00 23:00 07:00 15:00 23:00 Intake Total 1000 ml 540 ml 553 ml Balance 1000 ml 540 ml 553 ml Intake Oral 240 ml 240 ml IV Total 1000 ml 313 ml Packed Cells 300 ml # Voids 1 # Bowel Movements 0 Result Diagram: 12/01/16 0630 12/01/16 0630 Imaging Last Impressions Chest X-Ray 11/30/16 0918 Signed Impressions: Service Date/Time: Wednesday, November 30, 2016 09:48 - CONCLUSION: No acute disease. Steven Knox MD Shoulder X-Ray 11/30/16 0000 Signed Impressions: Service Date/Time: Wednesday, November 30, 2016 09:52 - CONCLUSION: Negative for fracture or dislocation. Follow up in 7-10 days is suggested if symptoms persist. Kris Foster MD FACR Radius/Ulna X-Ray 11/30/16 0000 Signed Impressions: Service Date/Time: Wednesday, November 30, 2016 09:59 - CONCLUSION: Negative for fracture or dislocation. Follow up in 7-10 days is suggested if symptoms persist. Kris Foster MD FACR CT Angiography 11/30/16 0000 Signed Impressions: Service Date/Time: Wednesday, November 30, 2016 10:40 - CONCLUSION: 1. No evidence of pulmonary embolism. 2. Cardiomegaly. 3. Minimal posterior bibasilar atelectasis. 4. Enlarged fatty liver. Israel Naranjo MD Objective Remarks GENERAL: AOX3, NAD. SKIN: Warm and dry. HEAD: Normocephalic. EYES: No scleral icterus. No injection or drainage. NECK: Supple, trachea midline. No JVD or lymphadenopathy. CARDIOVASCULAR: Regular rate and rhythm without murmurs, gallops, or rubs. RESPIRATORY: Breath sounds equal bilaterally. No accessory muscle use. GASTROINTESTINAL: Abdomen soft, non-tender, nondistended. MUSCULOSKELETAL: No cyanosis, or edema. BACK: Nontender without obvious deformity. No CVA tenderness. Procedures None. A/P Problem List: (1) Microcytic hypochromic anemia ICD Code: D50.9 Status: Acute (2) Hypernatremia ICD Code: E87.0 Status: Acute (3) Right shoulder pain ICD Code: M25.511 Status: Acute (4) Tobacco abuse ICD Code: Z72.0 Status: Acute (5) Alcohol abuse ICD Code: F10.10 Status: Acute Assessment and Plan Ms. Monaco is a pleasant 41-year-old female with a history of hypertension, tachycardia, anxiety and alcohol abuse who presented to the emergency department on 11/30/2016 due to right shoulder pain that started 2 weeks ago. Patient also reported some chest discomfort in the last one week. Patient also reports feeling fatigued in the last 1-2 months. ED workup indicated anemia with hemoglobin 7.1. Two units transfused and Hgb improved to 9.8. GI was consulted for further work up. - Symptomatic anemia - Microcytic hypochromic anemia - Possibly multifactorial - alcoholism, GI blood loss, menorrhagia - Iron studies including ferritin level indicate iron deficiency. We can start Iron sulfate after Colonoscopy. - Transfused total of two units of PRBCs. Hgb 7.1 --> 9.1 --> 9.8. - GI consulted for possible EGD/Colonoscopy. GI ordered CT abd. May consider Colonoscopy within next 1-2 days. - Chest pain - atypical. - Troponins x 3 negative. - Will d/c telemetry. - Right shoulder pain - Bruise two weeks ago - unknown etiology. However, alcohol intoxication related injury is a possibility. - Shoulder x-ray reviewed by me. No acute findings. - Shoulder MRI pending. - Consult physical therapy. - Hypernatremia - Na 149. - Patient received 1/2NS. Na improved from 149 --> 145. - Alcohol abuse - Tobacco abuse - Librium 10mg QID PRN and CIWA protocol. - Folic acid 1mg Qday and Thiamine 100mg IV X 3 days then PO. - Menorrhagia - Long standing problem. We will advise patient to see SUPERVISOR WEBBING in the outpatient setting. - Case management consult for patient's assistance. Full code. SCDs. Sabrina Cotto DO Dec 01, 2016 11:43 am
--- NOTE | 2016-12-01 11:45 | RADRPT ---
EXAM DATE/TIME: 12/01/2016 11:05 [facility] COMPARISON: CT ABDOMEN & PELVIS W CONTRAST, November 09, 2010, 3:18. INDICATIONS : Anemia IV CONTRAST: 100 cc Omnipaque 350 (iohexol) IV ORAL CONTRAST: Partial prescribed oral contrast ingested. RADIATION DOSE: 5.38 CTDIvol (mGy) MEDICAL HISTORY : None SURGICAL HISTORY : Tubal ligation. ENCOUNTER: Initial ACUITY: 2 days PAIN SCALE: 2/10 LOCATION: Bilateral abdomen TECHNIQUE: Volumetric scanning of the abdomen and pelvis was performed. Using automated exposure control and ad justment of the mA and/or kV according to patient size, radiation dose was kept as low as reasonably achievable to obtain optimal diagnostic quality images. DICOM format image data is available electro nically for review and comparison. FINDINGS: Small bilateral pleural effusions. Hepatomegaly and diffuse hepatic steatosis. There is an abnormal a ppearance of the gallbladder with marked gallbladder wall edema versus pericholecystic fluid measurin g 9 mm in transverse dimension. Spleen, pancreas, adrenal glands, bilateral kidneys are unremarkable. Urinary bladder, left ovary unremarkable. There is a 2.7 x 2.2 cm mass anterior left uterine fundal region felt to represent a fibroid. A right ovarian cyst measuring 2.9 cm is present. There is a smal l amount of free fluid in the pelvis. No evidence of bowel obstruction. Appendix normal. Scattered at herosclerotic calcifications are seen. Osseous structures are intact. Spleen measures up to 16.4 cm i n cephalocaudal dimension. CONCLUSION: 1. Hepatosplenomegaly. 2. Uterine fibroid. 3. Bilateral pleural effusions. 4. Right ovarian cyst. 5. Atherosclerotic calcifications. 6. Hepatic steatosis. Luke Huertas MD on December 01, 2016 at 11:40 Board Certified Radiologist. This report was verified electronically.
--- NOTE | 2016-12-01 12:11 | HHI.GIFU ---
Subjective Remarks Comfortable in bed complains of dysphagia and weight loss but no active bleeding Objective Vitals I&O Vital Signs Date Time Temp Pulse Resp B/P Pulse Ox O2 Delivery O2 Flow Rate FiO2 12/01/16 08:27 96 12/01/16 08:00 99.3 93 18 112/75 95 12/01/16 04:00 98.5 97 16 110/73 96 12/01/16 00:00 99.4 100 18 129/85 95 11/30/16 21:30 99.0 78 18 134/93 100 11/30/16 20:10 98 21 11/30/16 20:00 73 11/30/16 20:00 99.2 78 18 134/93 100 11/30/16 18:24 98.6 93 15 134/85 95 11/30/16 18:23 98.1 83 15 134/86 99 11/30/16 17:00 98 21 11/30/16 16:13 98.4 82 16 135/81 100 Room Air 11/30/16 15:24 98.4 85 18 117/81 98 Room Air 11/30/16 15:10 99.4 86 18 114/80 98 Room Air 11/30/16 12:56 72 18 125/80 99 Room Air I/O 11/30/16 11/30/16 11/30/16 12/01/16 12/01/16 12/01/16 07:00 15:00 23:00 07:00 15:00 23:00 Intake Total 1000 ml 540 ml 553 ml Balance 1000 ml 540 ml 553 ml Intake Oral 240 ml 240 ml IV Total 1000 ml 313 ml Packed Cells 300 ml # Voids 1 # Bowel Movements 0 Laboratory Laboratory Tests Test 11/30/16 11/30/16 11/30/16 12/01/16 15:05 18:33 23:45 06:30 Troponin I LESS THAN 0.02 LESS THAN 0.02 Hemoglobin 9.1 9.8 Hematocrit 30.3 32.4 White Blood Count 8.7 Red Blood Count 4.44 Mean Corpuscular Volume 72.9 Mean Corpuscular Hemoglobin 22.1 Mean Corpuscular Hemoglobin 30.4 Concent Red Cell Distribution Width 22.8 Platelet Count 212 Mean Platelet Volume 8.4 Neutrophils (%) (Auto) 74.6 Lymphocytes (%) (Auto) 15.3 Monocytes (%) (Auto) 8.8 Eosinophils (%) (Auto) 0.7 Basophils (%) (Auto) 0.6 Neutrophils # (Auto) 6.4 Lymphocytes # (Auto) 1.3 Monocytes # (Auto) 0.8 Eosinophils # (Auto) 0.1 Basophils # (Auto) 0.1 CBC Comment AUTO DIFF Differential Comment AUTO DIFF CONFIRMED Platelet Estimate NORMAL Platelet Morphology Comment NORMAL Basophilic Stippling FAINT Target Cells 1+ Ovalocytes 1+ Rouleau PRESENT Sodium Level 145 Potassium Level 3.3 Chloride Level 110 Carbon Dioxide Level 25.3 Anion Gap 10 Blood Urea Nitrogen 2 Creatinine 0.49 Estimat Glomerular Filtration 138 Rate Random Glucose 91 Calcium Level 7.6 Imaging Last Impressions Abdomen/Pelvis CT 12/01/16 0000 Signed Impressions: Service Date/Time: Thursday, December 01, 2016 11:05 - CONCLUSION: 1. Hepatosplenomegaly. 2. Uterine fibroid. 3. Bilateral pleural effusions. 4. Right ovarian cyst. 5. Atherosclerotic calcifications. 6. Hepatic steatosis. Luke Huertas MD Chest X-Ray 11/30/1618 Signed Impressions: Service Date/Time: Wednesday, November 30, 2016 09:48 - CONCLUSION: No acute disease. Steven Knox MD Shoulder X-Ray 11/30/16 0000 Signed Impressions: Service Date/Time: Wednesday, November 30, 2016 09:52 - CONCLUSION: Negative for fracture or dislocation. Follow up in 7-10 days is suggested if symptoms persist. Kris Foster MD FACR Radius/Ulna X-Ray 11/30/16 0000 Signed Impressions: Service Date/Time: Wednesday, November 30, 2016 09:59 - CONCLUSION: Negative for fracture or dislocation. Follow up in 7-10 days is suggested if symptoms persist. Kris Foster MD FACR CT Angiography 11/30/16 0000 Signed Impressions: Service Date/Time: Wednesday, November 30, 2016 10:40 - CONCLUSION: 1. No evidence of pulmonary embolism. 2. Cardiomegaly. 3. Minimal posterior bibasilar atelectasis. 4. Enlarged fatty liver. Israel Naranjo MD Physical Exam NECK: Neck is supple CHEST: Chest is clear to auscultation and percussion. CARDIAC: Regular rate and rhythm with no murmur gallop or rubs. ABDOMEN: Soft, nondistended, nontender; no hepatosplenomegaly; bowel sounds are present in all four quadrants. EXTREMITIES: No clubbing, cyanosis, or edema. SKIN: Normal; no rash; no jaundice. TAILOR'S AIDE: No focal deficits; alert and oriented times three. Assessment and Plan Plan Iron deficiency anemia Alcoholism Weight loss Dysphagia Agree with current supportive care Monitor labs and transfuse as needed Plan for an EGD and a colonoscopy tomorrow Carlos Crawford MD Dec 01, 2016 12:11
[2016-12-01] MEDS ORDERED: PEG (High)/E-LYTE SOLN 4000 ML BTL PO ONE (12:30)
--- NOTE | 2016-12-01 16:43 | RADRPT ---
EXAM DATE/TIME: 12/01/2016 15:02 [facility] COMPARISON: SHOULDER RIGHT LTD (2VWS), November 30, 2016, 9:52. INDICATIONS : Right shoulder pain. MEDICAL HISTORY : Hypertension. SURGICAL HISTORY : None. ENCOUNTER: Initial ACUITY: 1 day PAIN SCORE: 5/10 LOCATION: Right shoulder TECHNIQUE: Multiplanar, multisequence MRI examination was performed without contrast. FINDINGS: ROTATOR CUFF: The supraspinatus, infraspinatus, subscapularis, and teres minor tendons are intact. LABRUM: Labrum is within normal limits. MARROW/CARTILAGE: Bone marrow signal is homogeneous. Glenohumeral joint articular cartilage is within normal limits. OTHER: Acromioclavicular joint is within normal limits. Acromion is Type 1 (flat). Proximal biceps tendon is intact. There is minimal fluid in the subacromial/subdeltoid bursa. CONCLUSION: No acute disease. Steven Cano MD on December 01, 2016 at 16:38 Board Certified Radiologist. This report was verified electronically.
[2016-12-01] MEDS: LORazepam 2 MG/ML VIAL IV PUSH PRN (22:02)
[2016-12-02] MEDS ORDERED: LACTATED RINGER'S 1000 ML IV PRN (00:15)
[2016-12-02] MEDS ORDERED: SODIUM CHLORID 0.9% 500 ML IV PRN (00:15)
[2016-12-02 05:41] LABS: HEMATOCRIT 29.7 % (35.0-46.0); MEAN CELL VOLUME 73.4 FL (80.0-100.0); MEAN CORPUSCULAR HEMOGLOBIN 22.9 PG (27.0-34.0); MEAN CORPUSCULAR HGB CONC 31.2 % (32.0-36.0); PLATELET COUNT 179 TH/MM3 (150-450); RED BLOOD COUNT 4.05 MIL/MM3 (4.00-5.30); RED CELL DISTRIBUTION WIDTH 23.9 % (11.6-17.2); REVIEW FLAG FINAL; WHITE BLOOD COUNT 6.4 TH/MM3 (4.0-11.0)
[2016-12-02 08:00] VITALS: BP 124/75; PULSE 95; RESP 17; TEMP 97.6; O2SAT 100
[2016-12-02] MEDS: FOLIC ACID 1 MG TAB PO SCH (08:46)
[2016-12-02] MEDS: amLODIPine BESYLATE 5 MG TAB PO SCH (08:47)
[2016-12-02] MEDS: DOCUSATE SODIUM 50 MG/SENNA 8.6 MG TAB PO SCH ×2 (08:47→20:36)
[2016-12-02] MEDS: THIAMINE INJ 100 MG in SODIUM CHLORIDE 0.9% INJ 100 ML IV SCH (08:49)
[2016-12-02] MEDS: SODIUM CHLORIDE 0.9% FLUSH 10 ML FLUSH IV FLUSH SCH ×2 (08:50→20:35)
--- NOTE | 2016-12-02 09:45 | GIPROC ---
[facility] [address] [facility]. [facility], [address] COLONOSCOPY PROCEDURE REPORT EXAM DATE: 12/02/2016 PATIENT NAME: Pamela Monaco MR #: [id number] BIRTHDATE: 1975 ENDOSCOPIST: Abigail Flores MD ORDER #: [id number] COLD ROLLING SUPERVISOR: Lashawn Khan and Nick Kearney STATUS: inpatient INDICATIONS: The patient is a 41 yr old female here for a colonoscopy due to anemia PROCEDURE PERFORMED: Colonoscopy, diagnostic MEDICATIONS: Per Anesthesia and None. PREP QUALITY: fair PREP TYPE:GoLytely ESTIMATED BLOOD LOSS: None CONSENT: The patient understands the risks and benefits of the procedure and understands that these risks include, but are not limited to: sedation, allergic reaction, infection, perforation and/or bleeding. Alternative means of evaluation and treatment include, among others: physical exam, x-rays, and/or surgical intervention. The patient elects to proceed with this endoscopic procedure. medical equipment was checked for proper function. Hand hygiene and appropriate measures for infection prevention was taken. After the risks, benefits and alternatives of the procedure were thoroughly explained, Informed consent was verified, confirmed and timeout was successfully executed by the treatment team. A digital exam revealed hemorrhoids The Pentax [id number] endoscope was introduced through the anus and advanced to the cecum, which was identified by both the appendix and ileocecal valve. The instrument was then slowly withdrawn as the colon was fully examined. COLON FINDINGS: The colonic mucosa appeared normal. Retroflexed views revealed internal hemorrhoids and Retroflexed views revealed small internal hemorrhoids The scope was then completely withdrawn from the patient and the procedure terminated. PROCEDURE WITHDRAWAL TIME:6minutes ADVERSE EVENTS: There were no complications. IMPRESSIONS: 1. The colonic mucosa appeared normal 2. Retroflexed views revealed internal hemorrhoids 3. Retroflexed views revealed small internal hemorrhoids 4. Revealed hemorrhoids RECOMMENDATIONS: 1. Benefiber 2 tsp daily 2. Probiotics from any [facility] or health food store 3. Yearly rectal exams 4. Submarine Operator eval RECALL: Return 5 years Colonoscopy Abigail Flores MD eSigned: Abigail Flores MD 12/02/2016 9:45 AM cc:
[2016-12-02] MEDS ORDERED: PROPOFOL 200 MG/20 ML AMP IV PUSH ONE (09:55)
--- NOTE | 2016-12-02 09:58 | GIPROC ---
[facility] [address] [facility]. [facility], [address] EGD PROCEDURE REPORT EXAM DATE: 12/02/2016 PATIENT NAME: Pamela Monaco MR #: [id number] BIRTHDATE: 1975 ATTENDING: Abigail Flores MD ORDER #: [id number] HAIR SPRING CUTTER: Lashawn Khan and Nick Kearney STATUS: inpatient INDICATIONS: The patient is a 41 yr old female here for an EGD due to anemia dysphagia PROCEDURE PERFORMED: esophagoscopy MEDICATIONS: Per Anesthesia and None. TOPICAL ANESTHETIC: none CONSENT: The patient understands the risks and benefits of the procedure and understands that these risks include, but are not limited to: sedation, allergic reaction, infection, perforation and/or bleeding. Alternative means of evaluation and treatment include, among others: physical exam, x-rays, and/or surgical intervention. The patient elects to proceed with this endoscopic procedure. medical equipment was checked for proper function. Hand hygiene and appropriate measures for infection prevention was taken. After the risks, benefits and alternatives of the procedure were thoroughly explained, Informed consent was verified, confirmed and timeout was successfully executed by the treatment team. The patient was anesthetized with topical anesthesia and the EC-[id number] (Pedi C) endoscope was introduced through the mouth and advanced to the esophagus lower. The gastroscope was then slowly withdrawn and removed. Very tigts stricture and esophagus--dilated just by passing sciope, sope changed to pediatric scope -still cannot pass, some bleeding from distal esophagus due to dilatation by passing scope. ADVERSE EVENTS: There were no complications. IMPRESSIONS: Very tigts stricture and esophagus--dilated just by passing sciope, sope changed to pediatric scope -still cannot pass, some bleeding from distal esophagus due to dilatation by passing scope posswible eosinophylic esophagitis RECOMMENDATIONS: Clear liquid repeat egd/dil under fluoro in 2-3 days consider gastrografin swallow PATIENT CONDITION: stable DISPOSITION: Inpatient REPEAT EXAM: Return 2 days EGD with dilatation Abigail Flores MD eSigned: Abigail Flores MD 12/02/2016 9:58 AM cc:
[2016-12-02] MEDS ORDERED: DO NOT ADM ANY ANTICOAGULANT DRUGS PRN (10:01)
[2016-12-02] MEDS ORDERED: LIDOCAINE VISCOUS 2% SOLN 15 ML UDC SWISH-SPIT PRN (10:15)
--- NOTE | 2016-12-02 10:26 | HHI.PR ---
Subjective Remarks No acute events overnight. Patient tachycardic to 101. Afebrile. Objective Vitals Vital Signs Date Time Temp Pulse Resp B/P Pulse Ox O2 Delivery O2 Flow Rate FiO2 12/02/16 10:15 97 16 109/57 96 Room Air 12/02/16 10:00 98.5 104 18 135/61 97 Room Air 12/02/16 08:00 97.6 95 17 124/75 100 12/01/16 23:00 98.5 99 18 124/82 98 12/01/16 20:42 98.6 101 16 129/82 100 12/01/16 20:20 99 21 12/01/16 20:00 96 12/01/16 16:00 98.1 99 20 125/82 100 12/01/16 12:00 98.1 102 21 126/87 98 I/O 12/01/16 12/01/16 12/01/16 12/02/16 12/02/16 12/02/16 07:00 15:00 23:00 07:00 15:00 23:00 Intake Total 553 ml 850 ml 0 ml Balance 553 ml 850 ml 0 ml Intake Oral 240 ml 850 ml 0 ml IV Total 313 ml # Voids 4 2 # Bowel Movements 0 0 Result Diagram: 12/02/16 0439 12/01/16 0630 Objective Remarks GENERAL: This is a well-nourished, well-developed patient, in no apparent distress. SKIN: No rashes, ecchymoses or lesions. Warm and dry. HEAD: Atraumatic. Normocephalic. No temporal or scalp tenderness. EYES: Pupils equal round and reactive. No injection or drainage. ENT: Nose without bleeding, purulent drainage or septal hematoma. Airway patent. NECK: Trachea midline. No lymphadenopathy. Supple, nontender, no meningeal signs. CARDIOVASCULAR: Regular rhythm, mildly tachycardic without murmurs, gallops, or rubs. No JVD. RESPIRATORY: Clear to auscultation. Breath sounds equal bilaterally. No wheezes , rales, or rhonchi. GASTROINTESTINAL: Abdomen soft, non-tender, nondistended. No guarding. MUSCULOSKELETAL: Extremities without clubbing, cyanosis, or edema. NEUROLOGICAL: Awake and alert. Cranial nerves II through XII intact. No focal neurological deficits. Normal speech. Procedures None. A/P Problem List: (1) Microcytic hypochromic anemia ICD Code: D50.9 Status: Acute (2) Hypernatremia ICD Code: E87.0 Status: Acute (3) Right shoulder pain ICD Code: M25.511 Status: Acute (4) Tobacco abuse ICD Code: Z72.0 Status: Acute (5) Alcohol abuse ICD Code: F10.10 Status: Acute Assessment and Plan Ms. Monaco is a pleasant 41-year-old female with a history of hypertension, tachycardia, anxiety and alcohol abuse who presented to the emergency department on 11/30/2016 due to right shoulder pain that started 2 weeks ago. Patient also reported some chest discomfort in the last one week. Patient also reports feeling fatigued in the last 1-2 months. ED workup indicated anemia with hemoglobin 7.1. - Symptomatic anemia - Microcytic hypochromic anemia - Possibly multifactorial - alcoholism, GI blood loss, menorrhagia - Patient status post transfusion of 2 units packed red blood cells, H&H stable. Continue to monitor - Iron studies significant for iron of 11, TIBC 295. Start iron supplementation once patient able to tolerate by mouth - GI consult. EGD/colonoscopy done 12/02. Colonoscopy significant for hemorrhoids. EGD showed esophageal stricture that was dilated just with passage of the scope. Repeat dilation in 23 days. Gastrografin swallow. - Chest pain - atypical. - ACS rule out negative - Esophageal stricture as above may be cause. - Right shoulder pain - Bruise two weeks ago - unknown etiology. However, alcohol intoxication related injury is a possibility. - Shoulder x-ray and MRI showed no acute injury - Consult physical therapy. - Hypernatremia - Na 149. -Continue 06/04 NS @ 100cc/hour. -Monitor. - Alcohol abuse - Tobacco abuse - Start patient on Librium 10mg QID PRN and CIWA protocol. - Start Folic acid 1mg Qday and Thiamine 100mg IV X 3 days then PO. - Menorrhagia - Long standing problem. We will advise patient to see EDUCATION SUPERVISOR in the outpatient setting. - Case management consult for patient's assistance. Full code. SCDs. Faith Lopez MD R3 Dec 02, 2016 10:26 Faith Lopez MD R3 Dec 02, 2016 10:26
[2016-12-02] MEDS: oxyCODONE/ACETAMINOPHEN 5 MG/325 MG TAB PO PRN ×2 (10:51→16:47)
[2016-12-02] MEDS: LORazepam 2 MG/ML VIAL IV PUSH PRN ×3 (10:56→20:36)
[2016-12-02 12:00] VITALS: BP 107/65; PULSE 87; RESP 16; TEMP 97.1; O2SAT 97
[2016-12-02] MEDS: PANTOPRAZOLE SODIUM 40 MG VIAL IV PUSH SCH ×2 (12:00→23:44)
[2016-12-02] MEDS: SUCRALFATE 1 GM/10 ML CUP PO SCH ×3 (12:36→20:35)
[2016-12-02 13:29] LABS: INDIRECT BILIRUBIN 0.4 MG/DL (0.0-0.8); TOTAL BILIRUBIN ADULT 1.9 MG/DL (0.2-1.0)
[2016-12-02 16:00] VITALS: BP 113/59; PULSE 52; RESP 16; TEMP 96.7; O2SAT 98
[2016-12-02 20:00] VITALS: BP_SYST 120; BP_SYST 121; BP_DIAS 72; BP_DIAS 78; PULSE 104; PULSE 92; RESP 18; RESP 20; TEMP 97.5; TEMP 98; O2SAT 97
[2016-12-02] MEDS: PHENOL 1.4% SOLN 180 ML BTL OROPHARYNG PRN (23:51)
[2016-12-03] VITALS (8 sets, daily range): BP systolic 120–133; BP diastolic 68–85; PULSE 73–97; RESP 17–20; TEMP 97–99.6; O2SAT 97–100
[2016-12-03] MEDS: oxyCODONE/ACETAMINOPHEN 5 MG/325 MG TAB PO PRN ×2 (00:06→20:18)
[2016-12-03] MEDS: SUCRALFATE 1 GM/10 ML CUP PO SCH ×4 (05:26→20:19)
[2016-12-03] MEDS: PHENOL 1.4% SOLN 180 ML BTL OROPHARYNG PRN (05:28)
[2016-12-03 06:01] LABS: AUTOMATED NEUTROPHIL # 3.1 TH/MM3 (1.8-7.7); BASOPHIL # 0.1 TH/MM3 (0-0.2); BASOPHIL % 2.4 % (0.0-2.0); EOSINOPHIL # 0.2 TH/MM3 (0-0.4); EOSINOPHIL % 4.3 % (0.0-4.0); HEMATOCRIT 29.8 % (35.0-46.0); LYMPH % 21.7 % (9.0-44.0); LYMPHOCYTE # 1.1 TH/MM3 (1.0-4.8); MEAN CELL VOLUME 74.1 FL (80.0-100.0); MEAN CORPUSCULAR HEMOGLOBIN 22.6 PG (27.0-34.0); MEAN CORPUSCULAR HGB CONC 30.5 % (32.0-36.0); MONO % 9.9 % (0.0-8.0); NEUT % 61.7 % (16.0-70.0); PLATELET COUNT 204 TH/MM3 (150-450); RED BLOOD COUNT 4.03 MIL/MM3 (4.00-5.30); RED CELL DISTRIBUTION WIDTH 24.3 % (11.6-17.2)
[2016-12-03 06:02] LABS: HEMO FLAGS AUTO DIFF
[2016-12-03 06:35] LABS: ANION GAP 10 MEQ/L (5-15); AST (GOT) 55 U/L (15-37); BICARBONATE 24.1 MEQ/L (21.0-32.0); BLOOD UREA NITROGEN 2 MG/DL (7-18); CHLORIDE 108 MEQ/L (98-107); GLOMERULAR FILTRATION RATE 153 ML/MIN (>89); SODIUM (NA) 142 MEQ/L (136-145)
[2016-12-03 06:36] LABS: ALT (GPT) 22 U/L (10-53)
[2016-12-03 06:39] LABS: ALKALINE PHOSPHATASE 128 U/L (45-117); TOTAL BILIRUBIN ADULT 1.9 MG/DL (0.2-1.0)
[2016-12-03 06:58] LABS: PLATELET ESTIMATE SMEAR NORMAL (NORMAL); PLATELET MORPHOLOGY NORMAL (NORMAL); SCAN/DIFF AUTO DIFF CONFIRMED
[2016-12-03] MEDS: DOCUSATE SODIUM 50 MG/SENNA 8.6 MG TAB PO SCH ×2 (07:52→20:18)
[2016-12-03] MEDS: amLODIPine BESYLATE 5 MG TAB PO SCH (08:07)
[2016-12-03] MEDS: SODIUM CHLORIDE 0.9% FLUSH 10 ML FLUSH IV FLUSH SCH ×2 (08:08→20:23)
[2016-12-03] MEDS: THIAMINE HCL 100 MG TAB PO SCH (08:08)
[2016-12-03] MEDS: FOLIC ACID 1 MG TAB PO SCH (08:08)
[2016-12-03] MEDS: LORazepam 2 MG/ML VIAL IV PUSH PRN ×2 (08:43→12:12)
--- NOTE | 2016-12-03 10:35 | HHI.PR ---
Subjective Remarks Follow-up microcytic hypochromic anemia/symptomatic anemia/alcohol abuse/ dysphagia 12/03/16-patient seen and examined, still complains of swallow difficulty; CIWA score of 8, afebrile Objective Vitals Vital Signs Date Time Temp Pulse Resp B/P Pulse Ox O2 Delivery O2 Flow Rate FiO2 12/03/16 08:00 97.1 82 18 125/85 97 12/03/16 04:00 99.6 73 19 125/68 98 12/03/16 03:42 97 12/03/16 00:00 97.5 92 20 120/72 97 12/02/16 20:00 98.0 104 18 121/78 97 12/02/16 17:47 18 12/02/16 16:00 96.7 52 16 113/59 98 12/02/16 12:00 97.1 87 16 107/65 97 I/O 12/02/16 12/02/16 12/02/16 12/03/16 12/03/16 12/03/16 07:00 15:00 23:00 07:00 15:00 23:00 Intake Total 0 ml 240 ml 120 ml 240 ml Balance 0 ml 240 ml 120 ml 240 ml Intake Oral 0 ml 240 ml 120 ml 240 ml # Voids 2 2 1 2 # Bowel Movements 0 2 1 0 Result Diagram: 12/03/16 0432 12/03/16 0432 Imaging Last Impressions Shoulder MRI 12/01/16 0000 Signed Impressions: Service Date/Time: Thursday, December 01, 2016 15:02 - CONCLUSION: No acute disease. Steven Cano MD Abdomen/Pelvis CT 12/01/16 0000 Signed Impressions: Service Date/Time: Thursday, December 01, 2016 11:05 - CONCLUSION: 1. Hepatosplenomegaly. 2. Uterine fibroid. 3. Bilateral pleural effusions. 4. Right ovarian cyst. 5. Atherosclerotic calcifications. 6. Hepatic steatosis. Luke Huertas MD Chest X-Ray 11/30/16 0918 Signed Impressions: Service Date/Time: Wednesday, November 30, 2016 09:48 - CONCLUSION: No acute disease. Steven Knox MD Shoulder X-Ray 11/30/16 0000 Signed Impressions: Service Date/Time: Wednesday, November 30, 2016 09:52 - CONCLUSION: Negative for fracture or dislocation. Follow up in 7-10 days is suggested if symptoms persist. Kris Foster MD FACR Radius/Ulna X-Ray 11/30/16 0000 Signed Impressions: Service Date/Time: Wednesday, November 30, 2016 09:59 - CONCLUSION: Negative for fracture or dislocation. Follow up in 7-10 days is suggested if symptoms persist. Kris Foster MD FACR CT Angiography 11/30/16 0000 Signed Impressions: Service Date/Time: Wednesday, November 30, 2016 10:40 - CONCLUSION: 1. No evidence of pulmonary embolism. 2. Cardiomegaly. 3. Minimal posterior bibasilar atelectasis. 4. Enlarged fatty liver. Israel Naranjo MD Objective Remarks GENERAL: NAD SKIN: Warm and dry. HEAD: Normocephalic. EYES: No scleral icterus. No injection or drainage. NECK: Supple, trachea midline. No JVD or lymphadenopathy. CARDIOVASCULAR: Regular rate and rhythm without murmurs, gallops, or rubs. RESPIRATORY: Breath sounds equal bilaterally. No accessory muscle use. GASTROINTESTINAL: Abdomen soft, non-tender, nondistended. MUSCULOSKELETAL: No cyanosis, or edema. BACK: Nontender without obvious deformity. No CVA tenderness. Procedures None. A/P Problem List: (1) Microcytic hypochromic anemia ICD Code: D50.9 Status: Acute (2) Hypernatremia ICD Code: E87.0 Status: Acute (3) Right shoulder pain ICD Code: M25.511 Status: Acute (4) Tobacco abuse ICD Code: Z72.0 Status: Acute (5) Alcohol abuse ICD Code: F10.10 Status: Acute Assessment and Plan 41-year-old female with - Symptomatic anemia - Microcytic hypochromic anemia - status post transfusion of 2 units packed red blood cells, H&H stable. Continue with iron supplement Continue to monitor - EGD/colonoscopy done 12/02. Colonoscopy significant for hemorrhoids. EGD showed esophageal stricture that was dilated just with passage of the scope. Repeat dilation in 23 days. Gastrografin swallow today 12/03/16. - Chest pain - atypical. - ACS ruled out - Esophageal stricture as above may be cause. - Right shoulder pain - Shoulder x-ray and MRI showed no acute injury - Physical therapy. - Hypernatremia - -Resolved Hypokalemia Replace electrolyte and monitor - Alcohol abuse - Tobacco abuse - Currently on rally pack, CIWA protocol. Change Librium protocol - Menorrhagia - Outpatient follow-up with RECYCLE DRIVER Full code. SCDs. Isaac Cordero MD Dec 03, 2016 10:35
[2016-12-03] MEDS ORDERED: DIATRIZOATE MEGLUM/DIATRIZOATE SOD 120 ML BTL (for RAD DIAG) PO ONE (10:55)
--- NOTE | 2016-12-03 11:05 | RADRPT ---
EXAM DATE/TIME: 12/03/2016 10:28 [place] COMPARISON: No previous studies available for comparison. INDICATIONS : Dysphagia for at least 2 months, solids and liquids get stuck in throat, painful swallowing, some vom iting FLUORO TIME: 1.3 minutes IMAGE COUNT: 28 CONTRAST: 1. Gastrografin (Diatrizoate Meglumine and Diatrizoate Sodium) MEDICAL HISTORY : dysphagia, anemia SURGICAL HISTORY : Tubal ligation. ENCOUNTER: Initial ACUITY: 2 months PAIN SCORE: 8/10 LOCATION: Bilateral throat FINDINGS: Examination of the esophagus demonstrates the swallowing function to be normal. There is no evidence of aspiration or penetration. There is a smooth stricture involving the distal esophagus at the leve l of the GE junction.. No hiatal hernia is identified. No reflux is seen. CONCLUSION: Smooth stricture involving the distal esophagus at the level of the GE junction. Herb Mishra MD on December 03, 2016 at 11:01 Board Certified Radiologist. This report was verified electronically.
[2016-12-03] MEDS ORDERED: POTASSIUM CHLORIDE 20 MEQ CONTROLLED RELEASE TAB PO ONE (11:15)
[2016-12-03] MEDS: PANTOPRAZOLE SODIUM 40 MG VIAL IV PUSH SCH (11:35)
[2016-12-03] MEDS ORDERED: POTASSIUM CHLORIDE 25 MEQ EFFERVESCENT TAB PO ONE (11:45)
--- NOTE | 2016-12-03 18:07 | HHI.GIFU ---
Subjective Remarks Resting in bed. States she is having a hard time swallowing- but does tolerate ice cream and is requesting full liquid diet. Would like to have repeat EGD as soon as possible so she does not have to stay longer than absolutely necessary. Objective Vitals I&O Vital Signs Date Time Temp Pulse Resp B/P Pulse Ox O2 Delivery O2 Flow Rate FiO2 12/03/16 16:00 98.0 78 18 129/77 99 12/03/16 12:00 97.6 78 18 129/84 98 12/03/16 08:00 97.1 82 18 125/85 97 12/03/16 04:00 99.6 73 19 125/68 98 12/03/16 03:42 97 12/03/16 00:00 97.5 92 20 120/72 97 12/02/16 20:00 98.0 104 18 121/78 97 I/O 12/02/16 12/02/16 12/02/16 12/03/16 12/03/16 12/03/16 07:00 15:00 23:00 07:00 15:00 23:00 Intake Total 0 ml 240 ml 120 ml 240 ml Output Total 500 ml Balance 0 ml 240 ml 120 ml 240 ml -500 ml Intake Oral 0 ml 240 ml 120 ml 240 ml Output Urine Total 500 ml # Voids 2 2 1 2 2 # Bowel Movements 0 2 1 0 Laboratory Laboratory Tests Test 12/03/16 04:32 White Blood Count 5.0 Red Blood Count 4.03 Hemoglobin 9.1 Hematocrit 29.8 Mean Corpuscular Volume 74.1 Mean Corpuscular Hemoglobin 22.6 Mean Corpuscular Hemoglobin 30.5 Concent Red Cell Distribution Width 24.3 Platelet Count 204 Mean Platelet Volume 8.4 Neutrophils (%) (Auto) 61.7 Lymphocytes (%) (Auto) 21.7 Monocytes (%) (Auto) 9.9 Eosinophils (%) (Auto) 4.3 Basophils (%) (Auto) 2.4 Neutrophils # (Auto) 3.1 Lymphocytes # (Auto) 1.1 Monocytes # (Auto) 0.5 Eosinophils # (Auto) 0.2 Basophils # (Auto) 0.1 CBC Comment AUTO DIFF Differential Comment AUTO DIFF CONFIRMED Platelet Estimate NORMAL Platelet Morphology Comment NORMAL Sodium Level 142 Potassium Level 3.0 Chloride Level 108 Carbon Dioxide Level 24.1 Anion Gap 10 Blood Urea Nitrogen 2 Creatinine 0.45 Estimat Glomerular Filtration 153 Rate Random Glucose 90 Calcium Level 7.9 Total Bilirubin 1.9 Aspartate Amino Transf 55 (AST/SGOT) Alanine Aminotransferase 22 (ALT/SGPT) Alkaline Phosphatase 128 Total Protein 5.0 Albumin 1.9 Imaging Last Impressions Upper GI/Barium Swallow X-Ray 12/03/16 0000 Signed Impressions: Service Date/Time: Saturday, December 03, 2016 10:28 - CONCLUSION: Smooth stricture involving the distal esophagus at the level of the GE junction. Herb Mishra MD Shoulder MRI 12/01/16 Signed Impressions: Service Date/Time: Thursday, December 01, 2016 15:02 - CONCLUSION: No acute disease. Steven Cano MD Abdomen/Pelvis CT 12/01/16 Signed Impressions: Service Date/Time: Thursday, December 01, 2016 11:05 - CONCLUSION: 1. Hepatosplenomegaly. 2. Uterine fibroid. 3. Bilateral pleural effusions. 4. Right ovarian cyst. 5. Atherosclerotic calcifications. 6. Hepatic steatosis. Luke Huertas MD Chest X-Ray 11/30/16917 Signed Impressions: Service Date/Time: Wednesday, November 30, 2016 09:48 - CONCLUSION: No acute disease. Steven Knox MD Shoulder X-Ray 11/30/16 Signed Impressions: Service Date/Time: Wednesday, November 30, 2016 09:52 - CONCLUSION: Negative for fracture or dislocation. Follow up in 7-10 days is suggested if symptoms persist. Kris Foster MD FACR Radius/Ulna X-Ray 11/30/16 Signed Impressions: Service Date/Time: Wednesday, November 30, 2016 09:59 - CONCLUSION: Negative for fracture or dislocation. Follow up in 7-10 days is suggested if symptoms persist. Kris Foster MD FACR CT Angiography 11/30/16 Signed Impressions: Service Date/Time: Wednesday, November 30, 2016 10:40 - CONCLUSION: 1. No evidence of pulmonary embolism. 2. Cardiomegaly. 3. Minimal posterior bibasilar atelectasis. 4. Enlarged fatty liver. Israel Naranjo MD Physical Exam HEENT: Normocephalic CHEST: CTA CARDIAC: RRR ABDOMEN: Soft, nondistended, nontender; no hepatosplenomegaly; bowel sounds are present in all four quadrants. EXTREMITIES: No clubbing, cyanosis, or edema. SKIN: Normal; no rash; no jaundice. WELL DRILL OPERATOR ROTARY DRILL: No focal deficits; alert and oriented times three. Assessment and Plan Plan ASSESSMENT: - Esophageal stricture with dysphagia. S/P EGD (12/02/16)---> Very tight stricture and esophagus--dilated just by passing scope, scope changed to pediatric scope -still cannot pass, some bleeding from distal esophagus due to dilatation by passing scope, possible eosinophilic esophagitis. Upper GI/Barium Swallow X-Ray (12/03/16)----> Smooth stricture involving the distal esophagus at the level of the GE junction. - Iron deficiency anemia. S/P EGD/Colonoscopy (12/02/16)----> Very tight stricture and esophagus--dilated just by passing scope, scope changed to pediatric scope -still cannot pass, some bleeding from distal esophagus due to dilatation by passing scope, possible eosinophilic esophagitis. 1. The colonic mucosa appeared normal, 2. Retroflexed views revealed internal hemorrhoids, 3. Retroflexed views revealed small internal hemorrhoids 4. Revealed hemorrhoids. .07/01.8. - Alcoholism. ETOH cessation. - Weight loss PLAN: - Plan for EGD with dilatation in am - Obtain consents - NPO after MN - Full liquids until MN - Cont. PPI - Monitor labs - Supportive care - Further recommendations to follow based on results of above - Pt seen and examined by Dr. Patel and myself and this note is written on his behalf Archana Price Dec 03, 2016 18:07
[2016-12-04] VITALS (9 sets, daily range): BP systolic 121–140; BP diastolic 78–88; PULSE 72–92; RESP 17–20; TEMP 96.8–97.9; O2SAT 95–100
[2016-12-04] MEDS: PANTOPRAZOLE SODIUM 40 MG VIAL IV PUSH SCH ×2 (00:31→10:55)
[2016-12-04] MEDS: SUCRALFATE 1 GM/10 ML CUP PO SCH ×4 (05:50→20:57)
[2016-12-04] MEDS: FOLIC ACID 1 MG TAB PO SCH (08:29)
[2016-12-04] MEDS: amLODIPine BESYLATE 5 MG TAB PO SCH (08:29)
[2016-12-04] MEDS: THIAMINE HCL 100 MG TAB PO SCH (08:30)
[2016-12-04] MEDS: SODIUM CHLORIDE 0.9% FLUSH 10 ML FLUSH IV FLUSH SCH ×2 (08:30→20:57)
[2016-12-04] MEDS: DOCUSATE SODIUM 50 MG/SENNA 8.6 MG TAB PO SCH ×2 (08:30→20:58)
--- NOTE | 2016-12-04 09:22 | HHI.PR ---
Subjective Remarks Follow-up microcytic hypochromic anemia/symptomatic anemia/alcohol abuse/ dysphagia 12/03/16-patient seen and examined, still complains of swallow difficulty; CIWA score of 8, afebrile 12/04/16-patient seen and examined, nothing by mouth and plan for EGD with dilatation today. Objective Vitals Vital Signs Date Time Temp Pulse Resp B/P Pulse Ox O2 Delivery O2 Flow Rate FiO2 12/04/16 08:00 97.0 86 19 134/88 95 12/04/16 03:57 96.8 92 17 122/84 97 12/04/16 00:11 97.4 82 17 121/78 96 12/03/16 20:23 81 12/03/16 20:11 97.0 86 17 133/84 100 12/03/16 16:00 98.0 78 18 129/77 99 12/03/16 12:00 97.6 78 18 129/84 98 I/O 12/03/16 12/03/16 12/03/16 12/04/16 12/04/16 12/04/16 07:00 15:00 23:00 07:00 15:00 23:00 Intake Total 240 ml 380 ml 120 ml Output Total 500 ml Balance 240 ml -500 ml 380 ml 120 ml Intake Oral 240 ml 380 ml 120 ml Output Urine Total 500 ml # Voids 2 2 2 2 # Bowel Movements 0 Result Diagram: 12/03/16 0432 12/03/16 0432 Imaging Last Impressions Upper GI/Barium Swallow X-Ray 12/03/16 0000 Signed Impressions: Service Date/Time: Saturday, December 03, 2016 10:28 - CONCLUSION: Smooth stricture involving the distal esophagus at the level of the GE junction. Herb Mishra MD Shoulder MRI 12/01/16 0000 Signed Impressions: Service Date/Time: Thursday, December 01, 2016 15:02 - CONCLUSION: No acute disease. Steven Cano MD Abdomen/Pelvis CT 12/01/16 0000 Signed Impressions: Service Date/Time: Thursday, December 01, 2016 11:05 - CONCLUSION: 1. Hepatosplenomegaly. 2. Uterine fibroid. 3. Bilateral pleural effusions. 4. Right ovarian cyst. 5. Atherosclerotic calcifications. 6. Hepatic steatosis. Luke Huertas MD Chest X-Ray 11/30/16 0918 Signed Impressions: Service Date/Time: Wednesday, November 30, 2016 09:48 - CONCLUSION: No acute disease. Steven Knox MD Shoulder X-Ray 11/30/16 0000 Signed Impressions: Service Date/Time: Wednesday, November 30, 2016 09:52 - CONCLUSION: Negative for fracture or dislocation. Follow up in 7-10 days is suggested if symptoms persist. Kris Foster MD FACR Radius/Ulna X-Ray 11/30/16 0000 Signed Impressions: Service Date/Time: Wednesday, November 30, 2016 09:59 - CONCLUSION: Negative for fracture or dislocation. Follow up in 7-10 days is suggested if symptoms persist. Kris Foster MD FACR CT Angiography 11/30/16 0000 Signed Impressions: Service Date/Time: Wednesday, November 30, 2016 10:40 - CONCLUSION: 1. No evidence of pulmonary embolism. 2. Cardiomegaly. 3. Minimal posterior bibasilar atelectasis. 4. Enlarged fatty liver. Israel Naranjo MD Objective Remarks GENERAL: NAD SKIN: Warm and dry. HEAD: Normocephalic. EYES: No scleral icterus. No injection or drainage. NECK: Supple, trachea midline. No JVD or lymphadenopathy. CARDIOVASCULAR: Regular rate and rhythm without murmurs, gallops, or rubs. RESPIRATORY: Breath sounds equal bilaterally. No accessory muscle use. GASTROINTESTINAL: Abdomen soft, non-tender, nondistended. MUSCULOSKELETAL: No cyanosis, or edema. BACK: Nontender without obvious deformity. No CVA tenderness. Procedures None. A/P Problem List: (1) Microcytic hypochromic anemia ICD Code: D50.9 Status: Acute (2) Hypernatremia ICD Code: E87.0 Status: Acute (3) Right shoulder pain ICD Code: M25.511 Status: Acute (4) Tobacco abuse ICD Code: Z72.0 Status: Acute (5) Alcohol abuse ICD Code: F10.10 Status: Acute Assessment and Plan 41-year-old female with - Symptomatic anemia - Microcytic hypochromic anemia - status post transfusion of 2 units packed red blood cells, H&H stable. Continue with iron supplement Continue to monitor - EGD/colonoscopy done 12/02. Colonoscopy significant for hemorrhoids. EGD showed esophageal stricture that was dilated just with passage of the scope. - Gastrografin swallow 12/03/16 with finding of .Smooth stricture involving the distal esophagus at the level of the GE junction - Plan for repeat EGD with dilatation today 11/04/16 - Chest pain - atypical. - ACS ruled out - Resolved - Right shoulder pain - Shoulder x-ray and MRI showed no acute injury - Physical therapy. - Hypernatremia - -Resolved Hypokalemia Replace electrolyte and monitor - Alcohol abuse - Tobacco abuse - Currently on CANDE kenney protocol. Librium protocol when necessary - Menorrhagia - Outpatient follow-up with ONLINE COMMUNITY MANAGER Full code. SCDs. Isaac Cordero MD Dec 04, 2016 09:22
[2016-12-04] MEDS ORDERED: MIDAZOLAM HCL 2 MG/2 ML VIAL ONE ×2 (10:03→11:06)
[2016-12-04] MEDS ORDERED: PROPOFOL 200 MG/20 ML AMP IV ONE (10:29)
--- NOTE | 2016-12-04 10:57 | HHI.GIFU ---
Subjective Remarks immediate postop note: EGD with balloon dilatation of esophagus with biopsy Indication: esophageal stricture Meds: MAC Findings: Tight stricture at distal esophagus at 35cm. Dilated with balloon dilator 8- 10mm, second stricture at GE junction dilated also to 10mm. There was mucosal tearing but no apparent perforation or significant bleeding Stomach: mild gastritis. Biopsy taken for gastritis Duodenum: normal Objective Vitals I&O Vital Signs Date Time Temp Pulse Resp B/P Pulse Ox O2 Delivery O2 Flow Rate FiO2 12/04/16 08:00 97.0 86 19 134/88 95 12/04/16 03:57 96.8 92 17 122/84 97 12/04/16 00:11 97.4 82 17 121/78 96 12/03/16 20:23 81 12/03/16 20:11 97.0 86 17 133/84 100 12/03/16 16:00 98.0 78 18 129/77 99 12/03/16 12:00 97.6 78 18 129/84 98 I/O 12/03/16 12/03/16 12/03/16 12/04/16 12/04/16 12/04/16 07:00 15:00 23:00 07:00 15:00 23:00 Intake Total 240 ml 380 ml 120 ml Output Total 500 ml Balance 240 ml -500 ml 380 ml 120 ml Intake Oral 240 ml 380 ml 120 ml Output Urine Total 500 ml # Voids 2 2 2 2 # Bowel Movements 0 Physical Exam HEENT: Normocephalic CHEST: CTA CARDIAC: RRR ABDOMEN: Soft, nondistended, nontender; no hepatosplenomegaly; bowel sounds are present in all four quadrants. EXTREMITIES: No clubbing, cyanosis, or edema. SKIN: Normal; no rash; no jaundice. VICE PRESIDENT CLIENT SERVICES: No focal deficits; alert and oriented times three. Assessment and Plan Plan ASSESSMENT: - Esophageal stricture with dysphagia. S/P EGD (12/02/16)---> Very tight stricture and esophagus--dilated just by passing scope, scope changed to pediatric scope -still cannot pass, some bleeding from distal esophagus due to dilatation by passing scope, possible eosinophilic esophagitis. Upper GI/Barium Swallow X-Ray (12/03/16)----> Smooth stricture involving the distal esophagus at the level of the GE junction. - Iron deficiency anemia. S/P EGD/Colonoscopy (12/02/16)----> Very tight stricture and esophagus--dilated just by passing scope, scope changed to pediatric scope -still cannot pass, some bleeding from distal esophagus due to dilatation by passing scope, possible eosinophilic esophagitis. 1. The colonic mucosa appeared normal, 2. Retroflexed views revealed internal hemorrhoids, 3. Retroflexed views revealed small internal hemorrhoids 4. Revealed hemorrhoids. .07/01.8. - Alcoholism. ETOH cessation. - Weight loss PLAN: - Protonix drip - Maalox 60cc po now - Full liquids today, advance tomorrow - Monitor labs - Supportive care Vj Patel MD Dec 04, 2016 10:57
[2016-12-04] MEDS ORDERED: ALUMINUM/MAGNESIUM/SIMETH 30 ML CUP PO ONE (11:00)
[2016-12-04] MEDS: PANTOPRAZOLE INJ 80 MG in SODIUM CHLORIDE 0.9% INJ 100 ML IV SCH ×2 (11:30→20:52)
[2016-12-04] MEDS ORDERED: DO NOT ADM ANY ANTICOAGULANT DRUGS PRN (11:45)
[2016-12-04] MEDS: PHENOL 1.4% SOLN 180 ML BTL OROPHARYNG PRN (20:57)
[2016-12-04] MEDS: oxyCODONE/ACETAMINOPHEN 5 MG/325 MG TAB PO PRN (20:58)
--- NOTE | 2016-12-04 21:07 | MR ---
cc: ISAAC BURKS BEATRICE S. M.D. SULLIVAN, HAROLD H. MD DATE 12/04/16 PROCEDURE Esophagogastroduodenoscopy with balloon dilatation of the esophagus with biopsy. INDICATIONS Esophageal stricture REFERRING PHYSICIAN Dr. Isaac Burks PROCEDURE IN DETAIL After informed consent was obtained, the patient was placed in the left side down position. She was sedated by the anesthesia service. After adequate sedation was achieved, the Pentax video gastroscope was inserted in the oropharynx and advanced through the esophagus down to the distal esophagus where the scope was blocked by a tight stricture. Through the stricture, a balloon dilating catheter was advanced under direct visualization. The balloon catheter advanced easily without any resistance. The internal guidewire was advanced for a few centimeters. The balloon was then inflated sequentially from 8 mm to 9 mm to 10 mm. The balloon was then deflated and the stricture was seen to have been dilated as the balloon catheter was pulled back into the scope. The scope was advanced toward the GE junction, but advancement was blocked by an additional stricture. The balloon dilator was then advanced through the opening into the stomach and positioned across the stricture. This also was dilated to 8 mm and then 9 mm. The stricture was seen to be open at that time. Therefore, the dilator was pulled back out and the scope was advanced down into the stomach. There was mild resistance as the scope was passed into the stomach. The scope was then advanced through the stomach to the descending duodenum. It was then slowly withdrawn examining the mucosal surfaces carefully. Biopsy was obtained in the gastric antrum for possible gastritis. A retroflex exam was performed of the fundus and cardia and there was a small amount of blood present there. This was aspirated and there was no evidence of perforation. The scope was then pulled back across the GE junction. It was then reinserted to the stomach and the balloon dilating catheter was again inserted into the stomach. It was pulled back across the stricture and inflated to 8 mm, 9 mm and 10 mm. The dilator was then deflated and removed and the area was inspected. There was some mucosal tearing but no evidence of perforation. The scope was then withdrawn and the procedure was terminated. She tolerated the procedure well and was returned to the recovery area in good condition. FINDINGS 1. The esophagus contained a tight stricture at in distal portion at 35 cm. The opening into the stomach was somewhat visible and allowed direct passage of the balloon without any resistance into the stomach. 2. The distal esophagus and GE junction were dilated to a total of 10 mm. The result was some mucosal tearing but no apparent perforation or significant bleeding was present. 3. The stomach showed mild gastritis and a biopsy was taken for gastritis. 4. The duodenum appeared normal. 5. There did not appear to be any of the usual findings associated with eosinophilic esophagitis proximal to the stricture. IMPRESSION 1. Distal esophageal tight stricture dilated to 10 mm without apparent complication. 2. Possible gastritis. 3. Rule out eosinophilic esophagitis. RECOMMENDATIONS 1. We will give the patient Maalox 60 mL now to eliminate any acid that could be in the stomach. 2. We will switch her to a Protonix drip to maximize anti-antacid therapy for the next 24 hours. 3. She may take a full liquid diet but advance to regular food tomorrow if she is comfortable. 4. She should have another EGD with dilatation in about 2 weeks to make sure that the repeat dilatation can be performed prior to re-stricturing that might prevent the scope from passing. 5. She should remain on proton pump inhibitor b.i.d. at time of discharge. Vj Patel MD [facility]/ /12:32 PM /8:53 PM
[2016-12-05 00:04] VITALS: BP 132/76; PULSE 72; RESP 18; TEMP 98.7; O2SAT 98
[2016-12-05 04:28] VITALS: BP 144/76; PULSE 78; RESP 16; TEMP 96.9; O2SAT 98
[2016-12-05] MEDS: SUCRALFATE 1 GM/10 ML CUP PO SCH (05:40)
[2016-12-05 08:00] VITALS: BP 126/71; PULSE 81; PULSE 83; RESP 18; TEMP 97.2; O2SAT 97
[2016-12-05] MEDS: DOCUSATE SODIUM 50 MG/SENNA 8.6 MG TAB PO SCH (09:00)
[2016-12-05] MEDS: SODIUM CHLORIDE 0.9% FLUSH 10 ML FLUSH IV FLUSH SCH (09:00)
[2016-12-05] MEDS: amLODIPine BESYLATE 5 MG TAB PO SCH ×2 (09:00→10:33)
[2016-12-05] MEDS: THIAMINE HCL 100 MG TAB PO SCH ×2 (09:00→10:32)
[2016-12-05] MEDS: FOLIC ACID 1 MG TAB PO SCH ×2 (09:00→10:32)
[2016-12-05 10:50] VITALS: O2SAT 97
--- NOTE | 2016-12-05 11:01 | HHI.GIFU ---
Subjective Remarks Resting in bed. Tolerating full liquids, but still having issues with some pills if not careful. She is being discharged today. Objective Vitals I&O Vital Signs Date Time Temp Pulse Resp B/P Pulse Ox O2 Delivery O2 Flow Rate FiO2 12/05/16 10:50 97 21 12/05/16 08:00 97.2 83 18 126/71 97 12/05/16 04:28 96.9 78 16 144/76 98 12/05/16 00:04 98.7 72 18 132/76 98 12/04/16 20:38 91 12/04/16 20:10 97.9 72 17 140/84 96 12/04/16 17:47 99 21 12/04/16 17:46 99 21 12/04/16 16:00 97.3 80 20 135/83 100 12/04/16 12:00 97.2 79 18 127/82 99 12/04/16 11:15 80 17 120/72 99 Room Air 12/04/16 11:00 90 16 119/74 99 Room Air I/O 12/04/16 12/04/16 12/04/16 12/05/16 12/05/16 12/05/16 07:00 15:00 23:00 07:00 15:00 23:00 Intake Total 1250 ml 481 ml 437 ml Output Total 700 ml Balance 550 ml 481 ml 437 ml Intake Oral 880 ml 380 ml 360 ml IV Total 20 ml 101 ml 77 ml Other 350 ml Output Urine Total 700 ml # Voids 2 2 2 # Bowel Movements 1 Imaging Last Impressions Upper GI/Barium Swallow X-Ray 12/03/16 0000 Signed Impressions: Service Date/Time: Saturday, December 03, 2016 10:28 - CONCLUSION: Smooth stricture involving the distal esophagus at the level of the GE junction. Herb Mishra MD Shoulder MRI 12/01/16 0000 Signed Impressions: Service Date/Time: Thursday, December 01, 2016 15:02 - CONCLUSION: No acute disease. Steven Cano MD Abdomen/Pelvis CT 12/01/16 0000 Signed Impressions: Service Date/Time: Thursday, December 01, 2016 11:05 - CONCLUSION: 1. Hepatosplenomegaly. 2. Uterine fibroid. 3. Bilateral pleural effusions. 4. Right ovarian cyst. 5. Atherosclerotic calcifications. 6. Hepatic steatosis. Luke Huertas MD Chest X-Ray 11/30/16 0918 Signed Impressions: Service Date/Time: Wednesday, November 30, 2016 09:48 - CONCLUSION: No acute disease. Steven Knox MD Shoulder X-Ray 11/30/16 0000 Signed Impressions: Service Date/Time: Wednesday, November 30, 2016 09:52 - CONCLUSION: Negative for fracture or dislocation. Follow up in 7-10 days is suggested if symptoms persist. Kris Foster MD FACR Radius/Ulna X-Ray 11/30/16 0000 Signed Impressions: Service Date/Time: Wednesday, November 30, 2016 09:59 - CONCLUSION: Negative for fracture or dislocation. Follow up in 7-10 days is suggested if symptoms persist. Kris Foster MD FACR CT Angiography 11/30/16 0000 Signed Impressions: Service Date/Time: Wednesday, November 30, 2016 10:40 - CONCLUSION: 1. No evidence of pulmonary embolism. 2. Cardiomegaly. 3. Minimal posterior bibasilar atelectasis. 4. Enlarged fatty liver. Israel Naranjo MD Physical Exam HEENT: Normocephalic CHEST: CTA CARDIAC: RRR ABDOMEN: Soft, nondistended, nontender; no hepatosplenomegaly; bowel sounds are present in all four quadrants. EXTREMITIES: No clubbing, cyanosis, or edema. SKIN: Normal; no rash; no jaundice. FISH ROD MAKER: No focal deficits; alert and oriented times three. Assessment and Plan Plan ASSESSMENT: - Esophageal stricture with dysphagia. S/P EGD (12/02/16)---> Very tight stricture and esophagus--dilated just by passing scope, scope changed to pediatric scope -still cannot pass, some bleeding from distal esophagus due to dilatation by passing scope, possible eosinophilic esophagitis. Upper GI/Barium Swallow X-Ray (12/03/16)----> Smooth stricture involving the distal esophagus at the level of the GE junction. S/P repeat EGD (12/04/16)---> Distal esophageal tight stricture dilated to 10 mm without complication, possible gastritis, r/o eosinophilic esophagitis. S/P Protonix Gtt for 24 hours. Full liquids, advance as tolerated. Will need repeat EGD with dilatation in 2 weeks. - Iron deficiency anemia. S/P EGD/Colonoscopy (12/02/16)----> Very tight stricture and esophagus--dilated just by passing scope, scope changed to pediatric scope -still cannot pass, some bleeding from distal esophagus due to dilatation by passing scope, possible eosinophilic esophagitis. 1. The colonic mucosa appeared normal, 2. Retroflexed views revealed internal hemorrhoids, 3. Retroflexed views revealed small internal hemorrhoids 4. Revealed hemorrhoids. .07/01.8. - Alcoholism. ETOH cessation. - Weight loss PLAN: - Full liquids, advance to soft diet as tolerated - S/P Protonix Gtt x 24 hours - Protonix 40mg po BID x 1 week then daily - Rpt EGD with dilatation in 2-3 weeks - FU VIOLETTA in 1-2 weeks - CM, please assist with getting patient established with community clinic/ medication card - Pt seen and examined by Dr. Patel and myself and this note is written on his behalf Archana Price Dec 05, 2016 11:01
[2016-12-05] MEDS ORDERED: PROT40TA PO (11:26)
--- NOTE | 2016-12-05 11:31 | HHI.PR ---
Subjective Remarks Follow-up microcytic hypochromic anemia/symptomatic anemia/alcohol abuse/ dysphagia 12/03/16-patient seen and examined, still complains of swallow difficulty; CIWA score of 8, afebrile 12/04/16-patient seen and examined, nothing by mouth and plan for EGD with dilatation today. 12/05/16-patient seen and examined, she is status post repeat EGD with dilatation yesterday, denies any significant complaint of nausea or dysphagia with food. Family by the bedside Objective Vitals Vital Signs Date Time Temp Pulse Resp B/P Pulse Ox O2 Delivery O2 Flow Rate FiO2 12/05/16 10:50 97 21 12/05/16 08:00 97.2 83 18 126/71 97 12/05/16 04:28 96.9 78 16 144/76 98 12/05/16 00:04 98.7 72 18 132/76 98 12/04/16 20:38 91 12/04/16 20:10 97.9 72 17 140/84 96 12/04/16 17:47 99 21 12/04/16 17:46 99 21 12/04/16 16:00 97.3 80 20 135/83 100 12/04/16 12:00 97.2 79 18 127/82 99 I/O 12/04/16 12/04/16 12/04/16 12/05/16 12/05/16 12/05/16 07:00 15:00 23:00 07:00 15:00 23:00 Intake Total 1250 ml 481 ml 437 ml Output Total 700 ml Balance 550 ml 481 ml 437 ml Intake Oral 880 ml 380 ml 360 ml IV Total 20 ml 101 ml 77 ml Other 350 ml Output Urine Total 700 ml # Voids 2 2 2 # Bowel Movements 1 Result Diagram: 12/03/16 0432 12/03/16 0432 Imaging Last Impressions Upper GI/Barium Swallow X-Ray 12/03/16 0000 Signed Impressions: Service Date/Time: Saturday, December 03, 2016 10:28 - CONCLUSION: Smooth stricture involving the distal esophagus at the level of the GE junction. Herb Mishra MD Shoulder MRI 12/01/16 0000 Signed Impressions: Service Date/Time: Thursday, December 01, 2016 15:02 - CONCLUSION: No acute disease. Steven Cano MD Abdomen/Pelvis CT 12/01/16 0000 Signed Impressions: Service Date/Time: Thursday, December 01, 2016 11:05 - CONCLUSION: 1. Hepatosplenomegaly. 2. Uterine fibroid. 3. Bilateral pleural effusions. 4. Right ovarian cyst. 5. Atherosclerotic calcifications. 6. Hepatic steatosis. Luke Huertas MD Chest X-Ray 11/30/16 0918 Signed Impressions: Service Date/Time: Wednesday, November 30, 2016 09:48 - CONCLUSION: No acute disease. Steven Knox MD Shoulder X-Ray 11/30/16 0000 Signed Impressions: Service Date/Time: Wednesday, November 30, 2016 09:52 - CONCLUSION: Negative for fracture or dislocation. Follow up in 7-10 days is suggested if symptoms persist. Kris Foster MD FACR Radius/Ulna X-Ray 11/30/16 0000 Signed Impressions: Service Date/Time: Wednesday, November 30, 2016 09:59 - CONCLUSION: Negative for fracture or dislocation. Follow up in 7-10 days is suggested if symptoms persist. Kris Foster MD FACR CT Angiography 11/30/16 0000 Signed Impressions: Service Date/Time: Wednesday, November 30, 2016 10:40 - CONCLUSION: 1. No evidence of pulmonary embolism. 2. Cardiomegaly. 3. Minimal posterior bibasilar atelectasis. 4. Enlarged fatty liver. Israel Naranjo MD Objective Remarks GENERAL: NAD SKIN: Warm and dry. HEAD: Normocephalic. EYES: No scleral icterus. No injection or drainage. NECK: Supple, trachea midline. No JVD or lymphadenopathy. CARDIOVASCULAR: Regular rate and rhythm without murmurs, gallops, or rubs. RESPIRATORY: Breath sounds equal bilaterally. No accessory muscle use. GASTROINTESTINAL: Abdomen soft, non-tender, nondistended. MUSCULOSKELETAL: No cyanosis, or edema. BACK: Nontender without obvious deformity. No CVA tenderness. Procedures None. A/P Problem List: (1) Microcytic hypochromic anemia ICD Code: D50.9 Status: Acute (2) Hypernatremia ICD Code: E87.0 Status: Acute (3) Right shoulder pain ICD Code: M25.511 Status: Acute (4) Tobacco abuse ICD Code: Z72.0 Status: Acute (5) Alcohol abuse ICD Code: F10.10 Status: Acute Assessment and Plan 41-year-old female with - Symptomatic anemia - Microcytic hypochromic anemia - status post transfusion of 2 units packed red blood cells, H&H stable. Continue with iron supplement Continue to monitor - EGD/colonoscopy done 12/02. Colonoscopy significant for hemorrhoids. EGD showed esophageal stricture that was dilated just with passage of the scope. - Gastrografin swallow 12/03/16 with finding of .Smooth stricture involving the distal esophagus at the level of the GE junction - s/p repeat EGD with dilatation 12/04/16 and patient was started on PPI drip 24 hours. Will discharge home on 40 mg Protonix twice a day - Chest pain - atypical. - ACS ruled out - Resolved - Right shoulder pain - Shoulder x-ray and MRI showed no acute injury - Physical therapy. - Hypernatremia - -Resolved Hypokalemia Replace electrolyte and monitor - Alcohol abuse - Tobacco abuse - Currently on CANDE kenney protocol. Librium protocol when necessary - Menorrhagia - Outpatient follow-up with [facility] Full code. SCDs. Isaac Cordero MD Dec 05, 2016 11:31
--- NOTE | 2016-12-05 11:34 | HHI.DS ---
Discharge Summary Admission Date Nov 30, 2016 at 12:00 Discharge Date: Dec 05, 2016 Admitting Diagnosis Symptomatic anemia (1) Microcytic hypochromic anemia ICD Code: D50.9 (2) Hypernatremia ICD Code: E87.0 (3) Right shoulder pain ICD Code: M25.511 (4) Tobacco abuse ICD Code: Z72.0 (5) Alcohol abuse ICD Code: F10.10 Procedures None. Brief History - From Admission Ms. Monaco is a 41-year-old female with a history of hypertension, tachycardia, alcohol abuse who presented to the emergency department on 11/30/2016 due to right shoulder pain. Approximately 2 weeks ago patient reports waking up and noticed a bruise on her right shoulder. In addition to bruise she also experienced shoulder pain radiating down her right arm and a feeling of her forearm pulling upward. In the last 1 week patient also reports some chest discomfort as well without any nausea vomiting or diaphoresis. Patient also reports feeling fatigued in the last 1-2 months. She also noticed dark stool in the last 7 days or so. She denies any cough, fever or chills. No abdominal pain. She admits to irregular menstruation with menorrhagia. No changes in bowel or bladder habits. ED workup indicated anemia with hemoglobin 7.1 and guaiac positive stool. CBC/BMP: 12/03/16 0432 12/03/16 0432 Significant Findings Laboratory Tests Test 12/02/16 12/03/16 12:22 04:32 Total Bilirubin 1.9 MG/DL 1.9 MG/DL (0.2-1.0) (0.2-1.0) Direct Bilirubin 1.5 MG/DL (0.0-0.2) Aspartate Amino Transf 73 U/L (15-37) 55 U/L (15-37) (AST/SGOT) Alkaline Phosphatase 138 U/L 128 U/L (45-117) (45-117) Total Protein 5.5 GM/DL 5.0 GM/DL (6.4-8.2) (6.4-8.2) Albumin 2.1 GM/DL 1.9 GM/DL (3.4-5.0) (3.4-5.0) Hemoglobin 9.1 GM/DL (11.6-15.3) Hematocrit 29.8 % (35.0-46.0) Mean Corpuscular Volume 74.1 FL (80.0-100.0) Mean Corpuscular Hemoglobin 22.6 PG (27.0-34.0) Mean Corpuscular Hemoglobin 30.5 % Concent (32.0-36.0) Red Cell Distribution Width 24.3 % (11.6-17.2) Monocytes (%) (Auto) 9.9 % (0.0-8.0) Eosinophils (%) (Auto) 4.3 % (0.0-4.0) Basophils (%) (Auto) 2.4 % (0.0-2.0) Potassium Level 3.0 MEQ/L (3.5-5.1) Chloride Level 108 MEQ/L (98-107) Blood Urea Nitrogen 2 MG/DL (7-18) Creatinine 0.45 MG/DL (0.50-1.00) Calcium Level 7.9 MG/DL (8.5-10.1) Imaging Last Impressions Upper GI/Barium Swallow X-Ray 12/03/16 0000 Signed Impressions: Service Date/Time: Saturday, December 03, 2016 10:28 - CONCLUSION: Smooth stricture involving the distal esophagus at the level of the GE junction. Herb Mishra MD Shoulder MRI 12/01/16 0000 Signed Impressions: Service Date/Time: Thursday, December 01, 2016 15:02 - CONCLUSION: No acute disease. Steven Cano MD Abdomen/Pelvis CT 12/01/16 0000 Signed Impressions: Service Date/Time: Thursday, December 01, 2016 11:05 - CONCLUSION: 1. Hepatosplenomegaly. 2. Uterine fibroid. 3. Bilateral pleural effusions. 4. Right ovarian cyst. 5. Atherosclerotic calcifications. 6. Hepatic steatosis. Luke Huertas MD Chest X-Ray 11/30/16 0918 Signed Impressions: Service Date/Time: Wednesday, November 30, 2016 09:48 - CONCLUSION: No acute disease. Steven Knox MD Shoulder X-Ray 11/30/16 0000 Signed Impressions: Service Date/Time: Wednesday, November 30, 2016 09:52 - CONCLUSION: Negative for fracture or dislocation. Follow up in 7-10 days is suggested if symptoms persist. Kris Foster MD FACR Radius/Ulna X-Ray 11/30/16 0000 Signed Impressions: Service Date/Time: Wednesday, November 30, 2016 09:59 - CONCLUSION: Negative for fracture or dislocation. Follow up in 7-10 days is suggested if symptoms persist. Kris Foster MD FACR CT Angiography 11/30/16 0000 Signed Impressions: Service Date/Time: Wednesday, November 30, 2016 10:40 - CONCLUSION: 1. No evidence of pulmonary embolism. 2. Cardiomegaly. 3. Minimal posterior bibasilar atelectasis. 4. Enlarged fatty liver. Israel Naranjo MD PE at Discharge GENERAL: NAD SKIN: Warm and dry. HEAD: Normocephalic. EYES: No scleral icterus. No injection or drainage. NECK: Supple, trachea midline. No JVD or lymphadenopathy. CARDIOVASCULAR: Regular rate and rhythm without murmurs, gallops, or rubs. RESPIRATORY: Breath sounds equal bilaterally. No accessory muscle use. GASTROINTESTINAL: Abdomen soft, non-tender, nondistended. MUSCULOSKELETAL: No cyanosis, or edema. BACK: Nontender without obvious deformity. No CVA tenderness. Hospital Course Patient was initially admitted secondary to symptomatic anemia and transfuse 2 units packed red blood cell. Gastroenterology was consulted and she underwent EGD with colonoscopy, however EGD with finding of esophageal strictures. A repeat EGD with dilatation was performed 12/04/16 and patient was started on PPI drip 24 hours. She'll be discharged home on Protonix 40 mg twice a day. Admission patient presented with atypical chest pain however ACS was ruled out per protocol with serial cardiac enzyme and EKGs. She was started on rally pack , CIWA protocol, Librium when necessary. All electrolyte abnormalities were corrected accordingly. Prior to discharge, patient tolerated by mouth and all vitals were stable. Pt Condition on Discharge: Stable Discharge Disposition: Discharge Home Discharge Time: <= 30 minutes Discharge Instructions DIET: Follow Instructions for: Heart Healthy Diet Activities you can perform: Regular-No Restrictions Follow up Referrals: Gastroenterology - 1 Week @ [facility] PCP Follow-up - 1 Week New Medications: Pantoprazole (Protonix) 40 Mg Tab 40 MG PO BID Ulcer Prevention #60 Ref 3 TAB Isaac Crodero MD Dec 05, 2016 11:34
[2016-12-05 12:00] VITALS: BP 126/78; PULSE 77; RESP 18; TEMP 97.3; O2SAT 98
[2016-12-06 03:50] LABS: ENDOMYSIAL AB TITER ND (<1:5); TISSUE TRANSGLUTAMINASE AB 1 U/mL (())
[2016-12-06 11:53] LABS: IGA SERUM 378 mg/dL (81-463); TISSUE TRANSGLUTAMINASE AB IGG ND U/mL (())
== END 2016-12-05 14:13 | disposition home or self-care (01) | DRG 812 ==
LOC: PHED 09:00 → PHEDA 12:00 → PH3B 16:22 → N07B 12-01 21:33
PROVIDERS: ADMIT Hospitalist; ATTEND Hospitalist
PROC: 30233N1 Transfusion of Nonautologous Red Blood Cells into Peripheral Vein, Percutaneous Approach (ICD-10-PCS; 2016-11-30)
PROC: 0D738ZZ Dilation of Lower Esophagus, Via Natural or Artificial Opening Endoscopic (ICD-10-PCS; principal; 2016-12-02 09:14)
PROC: 0DJD8ZZ Inspection of Lower Intestinal Tract, Via Natural or Artificial Opening Endoscopic (ICD-10-PCS; 2016-12-02 09:14)
PROC: 0D738ZZ Dilation of Lower Esophagus, Via Natural or Artificial Opening Endoscopic (ICD-10-PCS; 2016-12-04)
PROC: 0DB68ZX Excision of Stomach, Via Natural or Artificial Opening Endoscopic, Diagnostic (ICD-10-PCS; 2016-12-04)
DX: D50.9 Iron deficiency anemia, unspecified (principal); E87.0 Hyperosmolality and hypernatremia; I11.9 Hypertensive heart disease without heart failure; K91.840 Postprocedural hemorrhage of a digestive system organ or structure following a digestive system procedure; F10.20 Alcohol dependence, uncomplicated; F32.9 Major depressive disorder, single episode, unspecified; R00.0 Tachycardia, unspecified; M25.511 Pain in right shoulder; F41.9 Anxiety disorder, unspecified; F17.210 Nicotine dependence, cigarettes, uncomplicated; F12.90 Cannabis use, unspecified, uncomplicated; N92.0 Excessive and frequent menstruation with regular cycle; R07.89 Other chest pain; K22.2 Esophageal obstruction; R63.4 Abnormal weight loss; K29.70 Gastritis, unspecified, without bleeding; K59.00 Constipation, unspecified; R63.0 Anorexia; Z86.73 Personal history of transient ischemic attack (TIA), and cerebral infarction without residual deficits; E87.6 Hypokalemia; K64.8 Other hemorrhoids; Y83.8 Other surgical procedures as the cause of abnormal reaction of the patient, or of later complication, without mention of misadventure at the time of the procedure; Z68.21 Body mass index [BMI] 21.0-21.9, adult; Z88.0 Allergy status to penicillin; Z88.5 Allergy status to narcotic agent; Z80.9 Family history of malignant neoplasm, unspecified
CPT/HCPCS: 36430; 71010; 71275; 73030; 73090; 73221; 74177; 74220; 80048; 80053; 80076; 82728; 82784; 82948; 83516; 83540; 83550; 83735; 84484; 84703; 85007; 85014; 85018; 85025; 85027; 85379; 85610; 85730; 86850; 86900; 86901; 86920; 88305; 88312; 93005; 96361; 96374; 96375; C1726; C9113; J1200; J2060; J2250; J2405; J3010; J3411; J7030; J7050; P9016; Q9963; Q9967

== ENCOUNTER 2016-12-25 11:24 | Emergency (ER) | payer SELFPAY ==
[~2016-12-25] VITALS: Ht 160 cm; Wt 48.0 kg
[~2016-12-25 11:24] MED LIST changes: -PRED15UDC PO; +PROT40TA PO; -SULF20OR2 PO; -VENTAER INH
[2016-12-25 11:26] VITALS: BP 168/92; PULSE 130; PULSE 142; RESP 17; TEMP 98.9; O2SAT 99
[2016-12-25 12:01] LABS: AUTOMATED NEUTROPHIL # 3.7 TH/MM3 (1.8-7.7); BASOPHIL # 0.1 TH/MM3 (0-0.2); BASOPHIL % 1.1 % (0.0-2.0); EOSINOPHIL # 0.1 TH/MM3 (0-0.4); EOSINOPHIL % 0.9 % (0.0-4.0); HEMATOCRIT 34.1 % (35.0-46.0); LYMPH % 21.3 % (9.0-44.0); LYMPHOCYTE # 1.1 TH/MM3 (1.0-4.8); MEAN CELL VOLUME 81.5 FL (80.0-100.0); MEAN CORPUSCULAR HGB CONC 31.9 % (32.0-36.0); MONO % 7.1 % (0.0-8.0); NEUT % 69.6 % (16.0-70.0); PLATELET COUNT 191 TH/MM3 (150-450); RED BLOOD COUNT 4.18 MIL/MM3 (4.00-5.30); RED CELL DISTRIBUTION WIDTH 28.3 % (11.6-17.2); WHITE BLOOD COUNT 5.3 TH/MM3 (4.0-11.0)
[2016-12-25 12:05] LABS: HEMO FLAGS AUTO DIFF
[2016-12-25 12:07] LABS: APTT (PATIENT) 23.1 SEC (24.3-30.1); PROTHROMBIN TIME - PATIENT 11.6 SEC (9.8-11.6)
[2016-12-25 12:17] LABS: ANION GAP 13 MEQ/L (5-15); AST (GOT) 103 U/L (15-37); BICARBONATE 20.3 MEQ/L (21.0-32.0); BLOOD UREA NITROGEN 2 MG/DL (7-18); CHLORIDE 109 MEQ/L (98-107); GLOMERULAR FILTRATION RATE 114 ML/MIN (>89); POTASSIUM 3.4 MEQ/L (3.5-5.1); SODIUM (NA) 142 MEQ/L (136-145)
[2016-12-25 12:20] LABS: ALKALINE PHOSPHATASE 162 U/L (45-117); ALT (GPT) 30 U/L (10-53); TOTAL BILIRUBIN ADULT 0.7 MG/DL (0.2-1.0)
--- NOTE | 2016-12-25 12:29 | PD ---
HPI Chief Complaint: Medical Clearance Time Seen by Provider: 12:28 Travel History International Travel<30 days: No Contact w/Intl Traveler<30days: No Traveled to known affect area: No History of Present Illness HPI 41 YO F with PMH of depression, anemia, esophageal stricture s/p dilatation on presents to the ED for evaluation of 20 days history of malaise, anhedonia, inability to swallow solid foods. She endorses ability to swallow liquids and soft foods. She states that any solid food "gets caught" and comes back up immediately. Patient was discharged on 12/05. She also complains of musculoskeletal pain of the lower edges of both ribs and hips. She attributes this to "staying in bed so much." She denies fever, chills, chest pain, shortness of breath,cough, abdominal pain, nausea, vomiting, dysuria. She endorses increased depression, denies SI, HI. She states that she does not take any antidepressants secondary to "can't afford to see a psychiatrist." She attempted to follow-up with the [facility] but was unable to afford the co-pay. PFSH Past Medical History Anxiety: Yes Depression: Yes Heart Rhythm Problems: Yes (runs tachy) Cancer: No Cardiovascular Problems: Yes Chemotherapy: No Cerebrovascular Accident: Yes (2010 [place] BLIND RIGHT EYE?) Diminished Hearing: No Endocrine: No Genitourinary: No Hypertension: Yes (NOT TAKING MEDICATION CURRENTLY) Immune Disorder: No Musculoskeletal: No Neurologic: No Psychiatric: Yes (Bipolar) Reproductive: No Respiratory: No Pneumonia: Yes Radiation Therapy: No : 5 Para: 4 Miscarriage: 1 Tubal Ligation: Yes Past Surgical History Gynecologic Surgery: Yes (TUBAL 1997) Other Surgery: Yes Social History Alcohol Use: Yes (4 BEERS NIGHTLY) Tobacco Use: Yes (1/2 PPD) Substance Use: Yes Allergies-Medications (Allergen,Severity, Reaction): Coded Allergies: Penicillin (Verified Allergy, Severe, THROAT SWELLING, 12/25/16) Tramadol (Verified Allergy, Severe, 12/25/16) SEIZURE Reported Meds & Prescriptions Reported Meds & Active Scripts Active Protonix (Pantoprazole Sodium) 40 Mg Tab 40 Mg PO BID Review of Systems Except as stated in HPI: all other systems reviewed are Neg Physical Exam Narrative GENERAL: Thin white female in no acute distress. SKIN: Focused skin assessment warm/dry. HEAD: Normocephalic. EYES: No scleral icterus. No injection or drainage. NECK: Supple, trachea midline. No JVD or lymphadenopathy. CARDIOVASCULAR: Regular rate and rhythm without murmurs, gallops, or rubs. RESPIRATORY: Breath sounds clear and equal bilaterally. No accessory muscle use. Tender to palpation of the edges of the lower ribs. GASTROINTESTINAL: Abdomen soft, non-tender, nondistended. Active bowel sounds. MUSCULOSKELETAL: No cyanosis, or edema. BACK: Nontender without obvious deformity. No CVA tenderness. Data Data Last Documented VS Vital Signs Date Time Temp Pulse Resp B/P Pulse Ox O2 Delivery O2 Flow Rate FiO2 12/25/16 12:33 82 22 143/89 100 Room Air 12/25/16 11:26 98.9 Orders Complete Blood Count With Diff (12/25/16 11:34) Comprehensive Metabolic Panel (12/25/16 11:34) Prothrombin Time / Inr (Pt) (12/25/16 11:34) Act Partial Throm Time (Ptt) (12/25/16 11:34) Type And Screen (12/25/16 11:34) Psych Screen (12/25/16 12:52) Mandatory Outpatient Referral (12/25/16 14:49) Calcium Carbonate Chew (Tums Chew) (12/25/16 15:00) Labs Laboratory Tests Test 12/25/16 11:50 White Blood Count 5.3 TH/MM3 Red Blood Count 4.18 MIL/MM3 Hemoglobin 10.9 GM/DL Hematocrit 34.1 % Mean Corpuscular Volume 81.5 FL Mean Corpuscular Hemoglobin 26.0 PG Mean Corpuscular Hemoglobin 31.9 % Concent Red Cell Distribution Width 28.3 % Platelet Count 191 TH/MM3 Mean Platelet Volume 7.7 FL Neutrophils (%) (Auto) 69.6 % Lymphocytes (%) (Auto) 21.3 % Monocytes (%) (Auto) 7.1 % Eosinophils (%) (Auto) 0.9 % Basophils (%) (Auto) 1.1 % Neutrophils # (Auto) 3.7 TH/MM3 Lymphocytes # (Auto) 1.1 TH/MM3 Monocytes # (Auto) 0.4 TH/MM3 Eosinophils # (Auto) 0.1 TH/MM3 Basophils # (Auto) 0.1 TH/MM3 CBC Comment AUTO DIFF Differential Comment AUTO DIFF CONFIRMED Prothrombin Time 11.6 SEC Prothromb Time International 1.0 RATIO Ratio Activated Partial 23.1 SEC Thromboplast Time Sodium Level 142 MEQ/L Potassium Level 3.4 MEQ/L Chloride Level 109 MEQ/L Carbon Dioxide Level 20.3 MEQ/L Anion Gap 13 MEQ/L Blood Urea Nitrogen 2 MG/DL Creatinine 0.58 MG/DL Estimat Glomerular Filtration 114 ML/MIN Rate Random Glucose 135 MG/DL Calcium Level 8.3 MG/DL Total Bilirubin 0.7 MG/DL Aspartate Amino Transf 103 U/L (AST/SGOT) Alanine Aminotransferase 30 U/L (ALT/SGPT) Alkaline Phosphatase 162 U/L Total Protein 6.6 GM/DL Albumin 2.3 GM/DL Blood Type A POSITIVE Antibody Screen NEGATIVE MDM Medical Decision Making Medical Screen Exam Complete: Yes Emergency Medical Condition: Yes Differential Diagnosis Esophageal stricture versus malnutrition versus electrolyte abnormality versus depression versus anemia versus other Narrative Course 41 YO F with PMH of depression, anemia, esophageal stricture s/p dilatation on presents to the ED for evaluation of 20 day history of malaise, anhedonia, inability to swallow solid foods. She endorses ability to swallow liquids and soft foods. She states that any solid food "gets caught" and comes back up immediately. She endorses increased depression, denies SI, HI. Vitals reviewed. Patient is tachycardic in triage but this resolves in the exam room. Physical exam reveals a nontoxic-appearing white female in no acute distress. Tender to palpation of the lower rib cage bilaterally. Abdomen is soft and nontender. No CVA tenderness. CBC: WBC 5.3. Hemoglobin 10.9. Coags INR 1.0. CMP: Potassium 3.4, calcium 8.3, albumin 2.3. Patient was administered 500 mg calcium chew. I spoke with Dr. Gutierrez GI. We reviewed the patients record together. He recommends that the patient be placed on a clear liquid and soft/pureed diet and follow up for outpatient follow up for serial dilatations. Mandatory outpatient consult placed. I discussed this plan with the patient who is agreeable. I provided her with information on liquid and soft diet. She is medically cleared for psychiatric evaluation. Diagnosis Primary Impression: Esophageal stricture Additional Impression: Depression Qualified Code: F32.9 - Depression, unspecified depression type Referrals: Vj Patel MD Patient Instructions: Esophageal Stricture (ED), Full Liquid Diet (DC), General Instructions, Soft Diet (ED) Additional Instructions: Rest, hydrate. Return to normal activities as tolerated. Begin liquid/soft/pureed diet. Follow up in the office with Dr. Patel for serial dilatation of esophageal stricture. Mandatory outpatient consult has been placed. The hospital or doctors office will be in touch. Return to the ED for any urgent or emergent medical condition. Disposition: 01 DISCHARGE HOME Condition: Stable Orin Junior Dec 25, 2016 12:29
[2016-12-25 12:33] VITALS: BP 143/89; PULSE 82; RESP 22; O2SAT 100
[2016-12-25 12:37] LABS: SCAN/DIFF AUTO DIFF CONFIRMED
[2016-12-25] MEDS ORDERED: CALCIUM CARBONATE 500 MG CHEWABLE TAB CHEW ONE (15:00)
== END 2016-12-25 19:00 | disposition home or self-care (01) ==
LOC: NEPC 11:24
DX: K22.2 Esophageal obstruction (principal); D64.9 Anemia, unspecified; R45.84 Anhedonia; R13.0 Aphagia; F41.9 Anxiety disorder, unspecified; I10 Essential (primary) hypertension; F31.9 Bipolar disorder, unspecified; Z86.73 Personal history of transient ischemic attack (TIA), and cerebral infarction without residual deficits; F17.200 Nicotine dependence, unspecified, uncomplicated
CPT/HCPCS: 80053; 85025; 85610; 85730; 86850; 86900; 86901; 99283

== ENCOUNTER 2017-07-06 10:55 | Inpatient (IN) | payer SELFPAY ==
[~2017-07-06] VITALS: Ht 160 cm; Wt 53.9 kg
[2017-07-06 11:14] VITALS: BP 134/79; PULSE 114; RESP 16; TEMP 98.2; O2SAT 100
[2017-07-06 11:40] VITALS: RESP 16; O2SAT 100
[2017-07-06] MEDS ORDERED: SODIUM CHLORIDE 0.9% FLUSH 10 ML FLUSH IV FLUSH PRN ×2 (11:45→15:30)
[2017-07-06] MEDS ORDERED: ONDANSETRON HCL 4 MG/2 ML VIAL IVP ONE (11:45)
--- NOTE | 2017-07-06 11:52 | PD ---
HPI Chief Complaint: Abdominal Pain Time Seen by Provider: 11:32 Travel History International Travel<30 days: No Contact w/Intl Traveler<30days: No Traveled to known affect area: No History of Present Illness HPI The patient was seen and examined in the presence of the nurse. Patient is an alcoholic who quit drinking 3 weeks ago. She complains of diffuse abdominal pain and bloating. She has nausea. She has diffuse muscle aches. Symptoms moderately severe. No alleviating factors. Symptoms exacerbated by her years of heavy drinking. Duration of abdominal pain is 3 weeks. It started when she quit drinking. PFSH Past Medical History Anxiety: Yes Depression: Yes Heart Rhythm Problems: Yes (runs tachy) Cancer: No Cardiovascular Problems: Yes (htn on meds) Chemotherapy: No Cerebrovascular Accident: Yes (2009 [place] BLIND RIGHT EYE?) Diminished Hearing: No Endocrine: No Genitourinary: No Hypertension: Yes (NOT TAKING MEDICATION CURRENTLY) Immune Disorder: No Musculoskeletal: No Neurologic: No Psychiatric: Yes (Bipolar) Reproductive: No Respiratory: No Pneumonia: Yes Radiation Therapy: No ?: Not LMP: 2 months ago : 5 Para: 4 Miscarriage: 1 Tubal Ligation: Yes Past Surgical History Gynecologic Surgery: Yes (TUBAL 1997) Other Surgery: Yes Social History Alcohol Use: Yes (4-5 BEERS DAILY) Tobacco Use: Yes (4- CIGS DAILY) Substance Use: Yes Allergies-Medications (Allergen,Severity, Reaction): Coded Allergies: penicillin G (Unverified Allergy, Severe, THROAT SWELLING, 07/06/17) tramadol (Unverified Allergy, Severe, 07/06/17) SEIZURE Reported Meds & Prescriptions Reported Meds & Active Scripts Active No Active Prescriptions or Reported Medications Review of Systems General / Constitutional: No: Fever Eyes: No: Visual changes HENT: No: Headaches Cardiovascular: No: Chest Pain or Discomfort Respiratory: No: Shortness of Breath Gastrointestinal: Positive: Nausea, Abdominal Pain Genitourinary: No: Dysuria Musculoskeletal: No: Pain Skin: No Rash Neurologic: No: Weakness Psychiatric: No: Depression Endocrine: No: Polydipsia Hematologic/Lymphatic: No: Easy Bruising Physical Exam Narrative GENERAL: Disheveled well-developed patient with abdominal pain. SKIN: Focused skin assessment reveals no rash and nodules. Skin is Warm and dry. HEAD: Atraumatic. Normocephalic. EYES: Pupils equal and round. No scleral icterus. No injection or drainage. ENT: No nasal bleeding or discharge. Mucous membranes pink and moist. NECK: Trachea midline. No JVD. CARDIOVASCULAR: Regular rate and rhythm. No murmur appreciated. RESPIRATORY: No accessory muscle use. Clear to auscultation. Breath sounds equal bilaterally. GASTROINTESTINAL: Abdomen soft, mildly distended, diffuse tenderness without rebound or guarding. Hepatic and splenic margins not palpable. MUSCULOSKELETAL: No obvious deformities. No clubbing. No cyanosis. No edema. Ecchymosis to the left hip with good range of motion NEUROLOGICAL: Awake and alert. No obvious cranial nerve deficits. Motor grossly within normal limits. Normal speech. PSYCHIATRIC: Appropriate mood and affect; insight and judgment poor. Data Data Last Documented VS Vital Signs Date Time Temp Pulse Resp B/P (MAP) Pulse Ox O2 Delivery O2 Flow Rate FiO2 07/06/17 13:44 114 16 110/70 (83) 100 Room Air 07/06/17 11:14 98.2 Orders Orders Complete Blood Count With Diff (07/06/17 11:40) Comprehensive Metabolic Panel (07/06/17 11:40) Lipase (07/06/17 11:40) Prothrombin Time / Inr (Pt) (07/06/17 11:40) Act Partial Throm Time (Ptt) (07/06/17 11:40) Urinalysis - C+S If Indicated (07/06/17 11:40) Ct Abd/Pel W Iv Contrast(Rout) (07/06/17 11:40) Iv Access Insert/Monitor (07/06/17 11:40) Ecg Monitoring (07/06/17 11:40) Oximetry (07/06/17 11:40) NPO (07/06/17 11:40) Ondansetron Inj (Zofran Inj) (07/06/17 11:45) Sodium Chloride 0.9% Flush (Ns Flush) (07/06/17 11:45) Ed Urine Pregnancytest Poc (07/06/17 11:40) Alcohol (Ethanol) (07/06/17 11:52) Urine Culture (07/06/17 12:08) Potassium Chlor 20 Meq Premix (Kcl 20 Me (07/06/17 13:00) Iohexol 350 Inj (Omnipaque 350 Inj) (07/06/17 13:46) Admit Order (Ed Use Only) (07/06/17 14:25) Labs Laboratory Tests Test 07/06/17 11:49 07/06/17 12:08 White Blood Count 9.6 TH/MM3 Red Blood Count 3.03 MIL/MM3 Hemoglobin 8.9 GM/DL Hematocrit 28.3 % Mean Corpuscular Volume 93.5 FL Mean Corpuscular Hemoglobin 29.3 PG Mean Corpuscular Hemoglobin Concent 31.4 % Red Cell Distribution Width 19.8 % Platelet Count 246 TH/MM3 Mean Platelet Volume 8.1 FL Neutrophils (%) (Auto) 73.4 % Lymphocytes (%) (Auto) 15.1 % Monocytes (%) (Auto) 10.0 % Eosinophils (%) (Auto) 0.8 % Basophils (%) (Auto) 0.7 % Neutrophils # (Auto) 7.0 TH/MM3 Lymphocytes # (Auto) 1.4 TH/MM3 Monocytes # (Auto) 1.0 TH/MM3 Eosinophils # (Auto) 0.1 TH/MM3 Basophils # (Auto) 0.1 TH/MM3 CBC Comment AUTO DIFF Differential Comment AUTO DIFF CONFIRMED Platelet Estimate NORMAL Platelet Morphology Comment NORMAL Rouleau PRESENT Prothrombin Time 14.1 SEC Prothromb Time International Ratio 1.4 RATIO Activated Partial Thromboplast Time 28.3 SEC Blood Urea Nitrogen 3 MG/DL Creatinine 0.62 MG/DL Random Glucose 126 MG/DL Total Protein 6.6 GM/DL Albumin 1.8 GM/DL Calcium Level 8.1 MG/DL Alkaline Phosphatase 177 U/L Aspartate Amino Transf (AST/SGOT) 90 U/L Alanine Aminotransferase (ALT/SGPT) 24 U/L Total Bilirubin 4.7 MG/DL Sodium Level 134 MEQ/L Potassium Level 2.5 MEQ/L Chloride Level 97 MEQ/L Carbon Dioxide Level 30.3 MEQ/L Anion Gap 7 MEQ/L Estimat Glomerular Filtration Rate 105 ML/MIN Lipase 75 U/L Ethyl Alcohol Level LESS THAN 3 MG/DL Urine Collection Type CLEAN CATCH Urine Color DEBRA Urine Turbidity MARKED Urine pH 6.5 Urine Specific [place] 1.021 Urine Protein 100 mg/dL Urine Glucose (UA) 100 mg/dL Urine Ketones 15 mg/dL Urine Occult Blood SMALL Urine Nitrite POS Urine Bilirubin LARGE Urine Leukocyte Esterase LARGE Urine RBC 4-9 /hpf Urine WBC 50-99 /hpf Urine WBC Clumps MOD Urine Squamous Epithelial Cells > 8 /hpf Urine Calcium Oxalate Crystals FEW /hpf Urine Amorphous Sediment MOD Urine Bacteria MOD /hpf Microscopic Urinalysis Comment CULTURE INDICATED Urine Collection Time 1210 MDM Medical Decision Making Medical Screen Exam Complete: Yes Emergency Medical Condition: Yes Medical Record Reviewed: Yes Differential Diagnosis Pancreatitis, gastroenteritis, colitis, ileus Narrative Course I have reviewed the patient's electronic medical record. IV placed CBC shows hemoglobin of 8.9 metabolic profile shows prominent hypokalemia of 2.5 LFT's I reviewed lipase is normal Coagulation studies show INR 1.4 Alcohol level is negative CT of abdomen and pelvis shows damage liver with significant ascites and small bowel thickening without obstruction I gave her IV Zofran Patient is having trouble keeping any liquids down. Has persistent vomiting. Has significant lateral lead abnormality I have started replacing IV potassium She is tachycardic and not stable for outpatient follow-up I reviewed with hospitalist will admit Diagnosis Primary Impression: Intractable vomiting with nausea Qualified Codes: R11.2 - Nausea with vomiting, unspecified Additional Impressions: Hypokalemia, gastrointestinal losses Tachycardia Admitting Information Admitting Physician Requests: Admit Scripts No Active Prescriptions or Reported Terry Song MD Jul 06, 2017 11:52
[2017-07-06 12:02] LABS: BASOPHIL # 0.1 TH/MM3 (0-0.2); BASOPHIL % 0.7 % (0.0-2.0); EOSINOPHIL # 0.1 TH/MM3 (0-0.4); EOSINOPHIL % 0.8 % (0.0-4.0); HEMATOCRIT 28.3 % (35.0-46.0); HEMOGLOBIN 8.9 GM/DL (11.6-15.3); LYMPH % 15.1 % (9.0-44.0); LYMPHOCYTE # 1.4 TH/MM3 (1.0-4.8); MEAN CELL VOLUME 93.5 FL (80.0-100.0); MEAN CORPUSCULAR HEMOGLOBIN 29.3 PG (27.0-34.0); MEAN CORPUSCULAR HGB CONC 31.4 % (32.0-36.0); MEAN PLATELET VOLUME 8.1 FL (7.0-11.0); NEUT % 73.4 % (16.0-70.0); PLATELET COUNT 246 TH/MM3 (150-450); RED BLOOD COUNT 3.03 MIL/MM3 (4.00-5.30); RED CELL DISTRIBUTION WIDTH 19.8 % (11.6-17.2); WHITE BLOOD COUNT 9.6 TH/MM3 (4.0-11.0)
[2017-07-06 12:13] LABS: INTERNATIONAL NORMALIZED RATIO 1.4 RATIO; PROTHROMBIN TIME - PATIENT 14.1 SEC (9.8-11.6)
[2017-07-06 12:15] LABS: BILIRUBIN, URINE LARGE (NEG); BLOOD, URINE SMALL (NEG); GLUCOSE,URINE 100 mg/dL (NEG); KETONE, URINE 15 mg/dL (NEG); NITRITE,URINE POS (NEG); PH, URINE 6.5 (5.0-8.5); URINE LEUKOCYTE ESTERASE LARGE (NEG)
[2017-07-06 12:31] LABS: ALBUMIN 1.8 GM/DL (3.4-5.0); ALKALINE PHOSPHATASE 177 U/L (45-117); ALT (GPT) 24 U/L (10-53); AST (GOT) 90 U/L (15-37); BICARBONATE 30.3 MEQ/L (21.0-32.0); BLOOD UREA NITROGEN 3 MG/DL (7-18); CALCIUM 8.1 MG/DL (8.5-10.1); CHLORIDE 97 MEQ/L (98-107); CREATININE 0.62 MG/DL (0.50-1.00); GLOMERULAR FILTRATION RATE 105 ML/MIN (>89); GLUCOSE,RANDOM 126 MG/DL (74-106); SODIUM (NA) 134 MEQ/L (136-145); TOTAL BILIRUBIN ADULT 4.7 MG/DL (0.2-1.0); TOTAL PROTEIN 6.6 GM/DL (6.4-8.2)
[2017-07-06 12:39] LABS: ROULEAUX PRESENT (NORMAL)
[2017-07-06 12:44] LABS: URINE COLOR AMBER (YELLW/STRAW)
[2017-07-06 12:45] LABS: AMORPHOUS SEDIMENT, URINE MOD; BACTERIA, URINE MOD /hpf; SQUAMOUS EPITHELIAL CELL URINE > 8 /hpf (0-5)
[2017-07-06 12:46] LABS: CALCIUM OXALATE CRYSTALS,URINE FEW /hpf; WHITE BLOOD CELL CLUMPS MOD
[2017-07-06] MEDS ORDERED: POTASSIUM CHLOR 20 MEQ PREMIX 100 ML IV ONE (13:00)
[2017-07-06 13:44] VITALS: BP 110/70; PULSE 114; RESP 16; O2SAT 100
[2017-07-06] MEDS ORDERED: IOHEXOL 350 MG/ML 10 ML VIAL (for RAD DIAG) IVCONTRAST ONE (13:46)
--- NOTE | 2017-07-06 13:56 | RADRPT ---
EXAM DATE/TIME: 07/06/2017 13:34 [facility] COMPARISON: CT ABDOMEN & PELVIS W CONTRAST, December 01, 2016, 11:05. INDICATIONS : Generalized abdominal pain for 3 weeks. IV CONTRAST: 70 cc Omnipaque 350 (iohexol) IV ORAL CONTRAST: No oral contrast ingested. RADIATION DOSE: 4.65 CTDIvol (mGy) MEDICAL HISTORY : Hypertension. SURGICAL HISTORY : Tubal ligation. ENCOUNTER: Initial ACUITY: 3 weeks PAIN SCALE: 6/10 LOCATION: Bilateral abdomen TECHNIQUE: Volumetric scanning of the abdomen and pelvis was performed. Using automated exposure control and ad justment of the mA and/or kV according to patient size, radiation dose was kept as low as reasonably achievable to obtain optimal diagnostic quality images. DICOM format image data is available electro nically for review and comparison. FINDINGS: LOWER LUNGS: The visualized lower lungs are clear. LIVER: Decreased attenuation with a subcentimeter lesion in the right lobe posteriorly. There is no dilatio n of the biliary tree. No calcified gallstones. SPLEEN: Normal si are mildly enlarged ze without lesion. PANCREAS: Within normal limits. KIDNEYS: Normal in size and shape. There is no mass, stone or hydronephrosis. ADRENAL GLANDS: Within normal limits. VASCULAR: There is no aortic aneurysm. BOWEL/MESENTERY: Diffuse wall thickening throughout the proximal and mid small bowel.. There is no free intraperitone al air or fluid. ABDOMINAL WALL: Within normal limits. RETROPERITONEUM: There is no lymphadenopathy. BLADDER: No wall thickening or mass. REPRODUCTIVE: Heterogeneous uterus containing mass in the fundus. INGUINAL: There is no lymphadenopathy or hernia. MUSCULOSKELETAL: Within normal limits for patient age. CONCLUSION: 1. Decreased attenuation within the liver which can be seen with hepatic steatosis/liver dysfunction. 2. Large amount of ascites. 3. Diffuse nonspecific thickening throughout the small bowel without obstruction. 4. Uterine leiomyoma. 5. Splenomegaly. Isaac Coffey MD on July 06, 2017 at 13:49 Board Certified Radiologist. This report was verified electronically.
[2017-07-06] MEDS ORDERED: NALOXONE HCL 0.4 MG/ML AMP IV PUSH PRN (15:30)
[2017-07-06 15:35] VITALS: BP 103/60; PULSE 114; RESP 16; O2SAT 100
[2017-07-06 16:00] VITALS: BP 100/74; PULSE 108; RESP 16; TEMP 98.1; O2SAT 99
[2017-07-06] MEDS ORDERED: FUROSEMIDE 40 MG/4 ML VIAL IV PUSH ONE (16:00)
--- NOTE | 2017-07-06 16:38 | HHI.HP ---
HPI Service [facility] Primary Care Physician No Primary Care Physician Admission Diagnosis intract n/v,hypokalemia,tachycardia,liver cirrhosis Diagnoses: (1) Intractable vomiting with nausea Diagnosis: Principal (2) Hypokalemia, gastrointestinal losses Diagnosis: Principal (3) Abdominal pain Diagnosis: Principal (4) Hematemesis Diagnosis: Principal Chief Complaint: Intractable abdominal pain, nausea, vomiting, blood in her vomit Travel History International Travel<30 Days: No Contact w/Intl Traveler <30 Da: No Traveled to Known Affected Are: No History of Present Illness Written by Terry Mcnair, acting as scribe for Dr. Price on 07/06/17 at 16: 24. 42-year-old female with known history of hypertension, history of alcoholism, history of esophageal stricture who presented to the hospital because of intractable nausea, vomiting, hematemesis. Patient indicates that her symptoms last November when she was in the hospital she had been doing well. She had continued drinking approximate 6 drinks daily but then 3 weeks ago she decided to quit and since then she has been having significant abdominal issues with abdominal pain, nausea, vomiting, she states that there is been episodes of her vomiting with red string-like material in it. Soft stools. Increased abdominal girth with weight loss. She indicates that she has lost approximately 15 pounds in the last 2 weeks. She indicates that whenever she tries to drink any liquids able come back up and she'll spit it out. Any time that she eats the first bite of food will go down, however after that she will vomit. The patient states that she is tried Pedialyte without any significant improvement. She is tried Rolaids, Tums, Pepto-Bismol. Over the last 4-5 days she has also been using Children's Motrin because of the abdominal discomfort on her abdominal sides. Patient did have evaluation done emergency department, patient found to have multiple problems with liver enzyme elevation, hypokalemia , anemia. Is recommended patient be admitted for further evaluation and management. Review of Systems Gastrointestinal: COMPLAINS OF: Abdominal pain, Nausea, Vomiting Except as stated in HPI: all other systems reviewed are Neg Past Family Social History Past Medical History Hypertension History of alcohol abuse History of esophageal strictures Past Surgical History EGD, colonoscopy with esophageal stricture Tubal ligation Reported Medications Reported Meds & Active Scripts Active No Active Prescriptions or Reported Medications Allergies: Coded Allergies: penicillin G (Unverified Allergy, Severe, THROAT SWELLING, 07/06/17) tramadol (Unverified Allergy, Severe, 07/06/17) SEIZURE Family History Reviewed and significant for mother from cancer, father with liver disease, hepatitis C, then eventually suicide Social History Patient quit drinking 2 weeks ago, she is up to 6-8 drinks daily. She is down to 3 cigarettes daily now, however prior to 3 weeks ago she is smoking half a pack a cigarettes a day since she was 8 years old. Patient does smoke marijuana daily. Patient states that she used to have a drug habit of opiates, cocaine in the past Physical Exam Vital Signs Vital Signs Date Time Temp Pulse Resp B/P (MAP) Pulse Ox O2 Delivery O2 Flow Rate FiO2 07/06/17 15:58 07/06/17 15:35 114 16 103/60 (74) 100 Room Air 07/06/17 13:44 114 16 110/70 (83) 100 Room Air 07/06/17 11:40 16 100 Room Air 07/06/17 11:14 98.2 114 16 134/79 (97) 100 Physical Exam GENERAL: Well-developed, well-nourished, in no acute distress. alert and orientated HEENT: Head is normocephalic without any lesions or masses noted. Facial features are symmetric. Eyes: Pupils equal round reactive to light. Extraocular muscles are intact. Conjunctivae were clear. Sclera are icteric. Oropharyngeal : Pharynx without any erythema edema. Tongue is midline without deviation. Buccal mucosa is moist without any masses or lesions NECK: Supple without any masses. Trachea midline no deviation. No JVD, no bruits are appreciated CARDIAC: Regular rhythm, regular rate. S1/S2 are heard. 2/6 ejection murmur, no gallops or rubs. LUNGS: Clear to auscultation bilaterally. No wheeze, rhonchi or rales. No use of accessory muscles on inspiration or expiration. ABDOMEN: Soft, pain noted on palpation of entire abdomen. Abdominal distention. Bowel sounds heard in all 4 quadrants. No organomegaly or masses. Negative rebound, negative guarding. Abdominal striae noted, patient does have spider hemangiomas noted across the anterior chest EXTREMITIES: No edema, pulses are equal bilaterally. No cyanosis or clubbing NEUROLOGY: Mood and affect appear appropriate. Cranial nerves II through XII grossly intact. Muscle strength 5/5 in upper and lower extremities bilaterally. Deep tendon reflexes are 2+ in upper and lower extremities bilaterally. Laboratory Laboratory Tests Test 07/06/17 11:49 07/06/17 12:08 White Blood Count 9.6 Red Blood Count 3.03 Hemoglobin 8.9 Hematocrit 28.3 Mean Corpuscular Volume 93.5 Mean Corpuscular Hemoglobin 29.3 Mean Corpuscular Hemoglobin Concent 31.4 Red Cell Distribution Width 19.8 Platelet Count 246 Mean Platelet Volume 8.1 Neutrophils (%) (Auto) 73.4 Lymphocytes (%) (Auto) 15.1 Monocytes (%) (Auto) 10.0 Eosinophils (%) (Auto) 0.8 Basophils (%) (Auto) 0.7 Neutrophils # (Auto) 7.0 Lymphocytes # (Auto) 1.4 Monocytes # (Auto) 1.0 Eosinophils # (Auto) 0.1 Basophils # (Auto) 0.1 CBC Comment AUTO DIFF Differential Comment AUTO DIFF CONFIRMED Platelet Estimate NORMAL Platelet Morphology Comment NORMAL Rouleau PRESENT Prothrombin Time 14.1 Prothromb Time International Ratio 1.4 Activated Partial Thromboplast Time 28.3 Blood Urea Nitrogen 3 Creatinine 0.62 Random Glucose 126 Total Protein 6.6 Albumin 1.8 Calcium Level 8.1 Alkaline Phosphatase 177 Aspartate Amino Transf (AST/SGOT) 90 Alanine Aminotransferase (ALT/SGPT) 24 Total Bilirubin 4.7 Sodium Level 134 Potassium Level 2.5 Chloride Level 97 Carbon Dioxide Level 30.3 Anion Gap 7 Estimat Glomerular Filtration Rate 105 Lipase 75 Ethyl Alcohol Level LESS THAN 3 Urine Collection Type CLEAN CATCH Urine Color DEBRA Urine Turbidity MARKED Urine pH 6.5 Urine Specific [place] 1.021 Urine Protein 100 Urine Glucose (UA) 100 Urine Ketones 15 Urine Occult Blood SMALL Urine Nitrite POS Urine Bilirubin LARGE Urine Leukocyte Esterase LARGE Urine RBC 4-9 Urine WBC 50-99 Urine WBC Clumps MOD Urine Squamous Epithelial Cells > 8 Urine Calcium Oxalate Crystals FEW Urine Amorphous Sediment MOD Urine Bacteria MOD Microscopic Urinalysis Comment CULTURE INDICATED Urine Collection Time 1210 Date/Time Source Procedure Growth Status 07/06/17 12:08 Urine Clean Catch Urine Culture Pending Received Result Diagram: 2/4/18 0557 07/07/17 0557 Imaging Last Impressions Abdomen/Pelvis CT 07/06/17 1140 Signed Impressions: Service Date/Time: Thursday, July 06, 2017 13:34 - CONCLUSION: 1. Decreased attenuation within the liver which can be seen with hepatic steatosis/liver dysfunction. 2. Large amount of ascites. 3. Diffuse nonspecific thickening throughout the small bowel without obstruction. 4. Uterine leiomyoma. 5. Splenomegaly. MD Betsy Zacarias VTE Risk Assessment [place] VTE Risk Assessment: Mod/High Risk (score >= 2) Caprini Risk Assessment Model Point Value = 1 Point Value = 2 Point Value = 3 Point Value = 5 Age 41-60 Minor surgery BMI > 25 kg/m2 Swollen legs Varicose veins or History of unexplained or recurrent spontaneous Oral contraceptives or hormone replacement Sepsis (< 1 month) Serious lung disease, including pneumonia (< 1 month) Abnormal pulmonary function Acute myocardial infarction Congestive heart failure (< 1 month) History of inflammatory bowel disease Medical patient at bed rest Age 61-74 Arthroscopic surgery Major open surgery (> 45 min) Laparoscopic surgery (> 45 min) Malignancy Confined to bed (> 72 hours) Immobilizing plaster cast Central venous access Age >= 75 History of VTE Family history of VTE Factor V Leiden Prothrombin [id number] Lupus anticoagulant Anticardiolipin antibodies Elevated serum homocysteine Heparin-induced thrombocytopenia Other congenital or acquired thrombophilia Stroke (< 1 month) Elective arthroplasty Hip, pelvis, or leg fracture Acute spinal cord injury (< 1 month) Prophylaxis Regimen Total Risk Factor Score Risk Level Prophylaxis Regimen 0-1 Low Early ambulation 2 Moderate Order ONE of the following: *Sequential Compression Device (SCD) *Heparin 5000 units SQ BID 3-4 Higher Order ONE of the following medications: *Heparin 5000 units SQ TID *Enoxaparin/Lovenox 40 mg SQ daily (WT < 150 kg, CrCl > 30 mL/min) *Enoxaparin/Lovenox 30 mg SQ daily (WT < 150 kg, CrCl > 10-29 mL/min) *Enoxaparin/Lovenox 30 mg SQ BID (WT < 150 kg, CrCl > 30 mL/min) AND/OR *Sequential Compression Device (SCD) 5 or more Highest Order ONE of the following medications: *Heparin 5000 units SQ TID (Preferred with Epidurals) *Enoxaparin/Lovenox 40 mg SQ daily (WT < 150 kg, CrCl > 30 mL/min) *Enoxaparin/Lovenox 30 mg SQ daily (WT < 150 kg, CrCl > 10-29 mL/min) *Enoxaparin/Lovenox 30 mg SQ BID (WT < 150 kg, CrCl > 30 mL/min) AND *Sequential Compression Device (SCD) Assessment and Plan Assessment and Plan Intractable nausea, vomiting, hematemesis, abdominal pain Multifactorial with patient just quitting alcohol, possible alcoholic gastritis, history of esophageal stricture, possible cyclic vomiting for marijuana, esophageal varices, Ashlyn-Zimmer tears Continue IV fluids, anti-emetics Clear liquid diet Monitor hemoglobin Consult GI for recommendations, will likely need EGD for evaluation Abdominal distention, large ascites with abdominal pain Likely secondary to alcohol liver disease, cirrhosis, coagulopathy Patient does have elevated liver enzymes We'll also check hepatitis panel, monitor liver enzymes Patient started on empirical Cipro Plans for paracentesis with fluid evaluation Hypokalemia Likely from GI loss from nausea, vomiting, loose stools and poor by mouth intake Replace and continue to monitor Urinary tract infection Patient is on Cipro for ascites Monitor urine culture DVT prevention sequential compression devices, avoid chemical prophylaxis secondary to patient will have paracentesis Physician Certification 2 Midnight Certification Type: Admission for Inpatient Services Order for Inpatient Services The services are ordered in accordance with Medicare regulations or non- Medicare payer requirements, as applicable. In the case of services not specified as inpatient-only, they are appropriately provided as inpatient services in accordance with the 2-midnight benchmark. Estimated LOS (days): 3 days is the estimated time the patient will need to remain in the hospital, assuming treatment plan goals are met and no additional complications. Post-Hospital Plan: Not yet determined Medical Decision Making Impression and Plan This note was transcribed by [email or web address] [[email or web address]]. I, Dr. Adele Price personally performed the history, physical exam, and medical decision making; and confirmed the accuracy of the information in the transcribed note. patient seen and history taken at time of note, and it is only signed at this time Authenticated by Dr. Adele Price on 07/08/17 at 10:32. Problem Qualifiers (1) Intractable vomiting with nausea: Qualified Codes: R11.2 - Nausea with vomiting, unspecified Terry Mcnair Jul 06, 2017 16:38 Adele Price MD Jul 08, 2017 10:33
[2017-07-06] MEDS: PANTOPRAZOLE SODIUM 40 MG VIAL IV PUSH SCH (16:56)
[2017-07-06] MEDS: CIPROFLOXACIN 400 MG PREMIX 200 ML IV SCH (16:57)
[2017-07-06] MEDS: SPIRONOLACTONE 25 MG TAB PO SCH (16:58)
[2017-07-06] MEDS: ACETAMINOPHEN/CODEINE 300 MG/30 MG TAB PO PRN ×2 (17:06→23:11)
[2017-07-06 20:00] VITALS: BP 104/58; PULSE 106; RESP 20; TEMP 97.3; O2SAT 100
[2017-07-06] MEDS: SODIUM CHLORIDE 0.9% FLUSH 10 ML FLUSH IV FLUSH SCH (21:04)
[2017-07-06] MEDS ORDERED: KETOROLAC TROMETHAMINE 30 MG/ML (IVP) VIAL IV PUSH ONE (21:15)
[2017-07-07] VITALS (7 sets, daily range): BP systolic 90–110; BP diastolic 55–73; PULSE 93–106; RESP 14–20; TEMP 96.7–98.3; O2SAT 94–100
[2017-07-07] MEDS: ACETAMINOPHEN/CODEINE 300 MG/30 MG TAB PO PRN ×3 (05:28→20:26)
[2017-07-07] MEDS: CIPROFLOXACIN 400 MG PREMIX 200 ML IV SCH ×2 (05:28→18:05)
[2017-07-07] MEDS: PANTOPRAZOLE SODIUM 40 MG VIAL IV PUSH SCH ×2 (05:28→18:10)
[2017-07-07 07:07] LABS: AUTOMATED NEUTROPHIL # 3.8 TH/MM3 (1.8-7.7); BASOPHIL # 0.1 TH/MM3 (0-0.2); EOSINOPHIL # 0.1 TH/MM3 (0-0.4); HEMATOCRIT 25.2 % (35.0-46.0); HEMOGLOBIN 8.1 GM/DL (11.6-15.3); LYMPH % 29.1 % (9.0-44.0); LYMPHOCYTE # 1.8 TH/MM3 (1.0-4.8); MEAN CELL VOLUME 93.1 FL (80.0-100.0); MEAN CORPUSCULAR HEMOGLOBIN 30.1 PG (27.0-34.0); MEAN CORPUSCULAR HGB CONC 32.4 % (32.0-36.0); MEAN PLATELET VOLUME 7.9 FL (7.0-11.0); MONO % 8.5 % (0.0-8.0); MONOCYTE # 0.5 TH/MM3 (0-0.9); NEUT % 60.4 % (16.0-70.0); PLATELET COUNT 194 TH/MM3 (150-450); RED BLOOD COUNT 2.71 MIL/MM3 (4.00-5.30); RED CELL DISTRIBUTION WIDTH 20.5 % (11.6-17.2); WHITE BLOOD COUNT 6.3 TH/MM3 (4.0-11.0)
[2017-07-07 07:20] LABS: ALBUMIN 1.6 GM/DL (3.4-5.0); ALKALINE PHOSPHATASE 146 U/L (45-117); ALT (GPT) 22 U/L (10-53); AST (GOT) 72 U/L (15-37); BICARBONATE 25.9 MEQ/L (21.0-32.0); BLOOD UREA NITROGEN 2 MG/DL (7-18); CALCIUM 7.6 MG/DL (8.5-10.1); CHLORIDE 98 MEQ/L (98-107); CREATININE 0.57 MG/DL (0.50-1.00); GLOMERULAR FILTRATION RATE 116 ML/MIN (>89); GLUCOSE,RANDOM 100 MG/DL (74-106); PHOSPHORUS 2.4 MG/DL (2.5-4.9); SODIUM (NA) 133 MEQ/L (136-145); TOTAL BILIRUBIN ADULT 3.6 MG/DL (0.2-1.0); TOTAL PROTEIN 5.8 GM/DL (6.4-8.2)
[2017-07-07] MEDS ORDERED: TEMAZEPAM 7.5 MG CAP PO PRN (07:30)
[2017-07-07] MEDS ORDERED: KETOROLAC TROMETHAMINE 60 MG/2 ML (IM) VIAL IM PRN (07:30)
--- NOTE | 2017-07-07 08:34 | HHI.PR ---
Subjective Remarks Patient seen today in follow-up for ascites and liver dysfunction likely due to chronic alcoholism. Still complaining of abdominal discomfort and distention. Potassium is low. She had some nausea and vomiting this morning Objective Vitals Vital Signs Date Time Temp Pulse Resp B/P (MAP) Pulse Ox O2 Delivery O2 Flow Rate FiO2 07/07/17 07:25 97.3 106 20 104/58 (73) 100 07/07/17 00:00 96.7 104 20 104/73 (83) 97 07/06/17 20:00 97.3 106 20 104/58 (73) 100 07/06/17 16:00 98.1 108 16 100/74 (83) 99 07/06/17 15:58 07/06/17 15:35 114 16 103/60 (74) 100 Room Air 07/06/17 13:44 114 16 110/70 (83) 100 Room Air 07/06/17 11:40 16 100 Room Air 07/06/17 11:14 98.2 114 16 134/79 (97) 100 I/O 07/06/17 07/06/17 07/06/17 07/07/17 07/07/17 07/07/17 07:00 15:00 23:00 07:00 15:00 23:00 Intake Total 102 ml 440 ml 2 ml Balance 102 ml 440 ml 2 ml Intake Oral 240 ml IV Total 102 ml 200 ml 2 ml # Voids 2 2 Result Diagram: 07/07/17 0557 07/07/17 0557 Imaging Last Impressions Abdomen/Pelvis CT 07/06/17 1140 Signed Impressions: Service Date/Time: Thursday, July 06, 2017 13:34 - CONCLUSION: 1. Decreased attenuation within the liver which can be seen with hepatic steatosis/liver dysfunction. 2. Large amount of ascites. 3. Diffuse nonspecific thickening throughout the small bowel without obstruction. 4. Uterine leiomyoma. 5. Splenomegaly. Isaac Coffey MD Objective Remarks GENERAL: This is a well-nourished, well-developed patient, in no apparent distress. CARDIOVASCULAR: Regular rate and rhythm without murmurs, gallops, or rubs. RESPIRATORY: Clear to auscultation. Breath sounds equal bilaterally. No wheezes , rales, or rhonchi. GASTROINTESTINAL: Abdomen soft, non-tender, distended with fluid wave. Normal active bowel sounds MUSCULOSKELETAL: Extremities without clubbing, cyanosis, or edema. NEURO: Alert & Oriented x4 to person, place, time, situation. Moves all ext x4 A/P Problem List: (1) Intractable vomiting with nausea ICD Code: R11.2 - Nausea with vomiting, unspecified Status: Acute Plan: Likely multifactorial with associated hematemesis and abdominal pain. We 'll follow-up with clear liquid diet, follow hemoglobin Likely will need endoscopy by GI, consult pending (2) Hypokalemia, gastrointestinal losses ICD Code: E87.6 - Hypokalemia Status: Acute Plan: We'll replace and continue to follow (3) Abdominal pain ICD Code: R10.9 - Unspecified abdominal pain Plan: Probably secondary to large ascites, paracentesis pending tomorrow Follow-up LFTs Empiric Cipro for SBP (4) UTI (urinary tract infection) ICD Code: N39.0 - Urinary tract infection, site not specified Plan: Continue with empiric Cipro, follow up cultures (5) Anemia ICD Code: D64.9 - Anemia, unspecified Plan: Probably secondary to GI bleeding versus chronic liver disease We'll follow-up liver studies and iron studies Problem Qualifiers (1) Intractable vomiting with nausea: Qualified Codes: R11.2 - Nausea with vomiting, unspecified Adele Price MD Jul 07, 2017 08:33
[2017-07-07] MEDS: POTASSIUM CHLORIDE 25 MEQ EFFERVESCENT TAB PO SCH ×2 (10:40→20:23)
[2017-07-07] MEDS: SPIRONOLACTONE 25 MG TAB PO SCH ×2 (10:40→18:01)
[2017-07-07] MEDS: SODIUM CHLORIDE 0.9% FLUSH 10 ML FLUSH IV FLUSH SCH ×2 (10:44→20:23)
--- NOTE | 2017-07-07 11:00 | PD.CONS ---
HPI History of Present Illness This is a 42 year old female presents with complaints of nausea vomiting hematemesis patient had been drinking alcohol up until about 3 weeks ago when she began to have abdominal pain and nausea and also started to have vomiting with some hematemesis she quit drinking 3 weeks ago and wasn't getting any better and so ultimately presented to the emergency room she denies any black stools or tarry stools she also began to have increasing abdominal distention and weight loss also reports heartburn or reflux PFSH Past Medical History Hypertension History of alcohol abuse History of esophageal strictures Past Surgical History EGD, colonoscopy with esophageal stricture Tubal ligation Coded Allergies: penicillin G (Unverified Allergy, Severe, THROAT SWELLING, 07/06/17) tramadol (Unverified Allergy, Severe, 07/06/17) SEIZURE Medications Current Medications Ondansetron HCl (Zofran Inj) 4 mg ONCE ONCE IVP Last administered on 07/06/17at 12:11; Start 07/06/17 at 11:45; Stop 07/06/17 at 11:46; Status DC Sodium Chloride (NS Flush) 2 ml UNSCH PRN IV FLUSH FLUSH AFTER USING IV ACCESS ; Start 07/06/17 at 11:45; Stop 07/06/17 at 15:29; Status DC Potassium Chloride 100 ml @ 50 mls/hr BOLUS ONCE IV Last administered on at 13:06; Start 07/06/17 at 13:00; Stop 07/06/17 at 14:59; Status DC Iohexol (Omnipaque 350 Inj) 70 ml STK-MED ONCE IVCONTRAST Last administered on 07/06/17at 13:46; Start 07/06/17 at 13:46; Stop 07/06/17 at 13:47; Status DC Sodium Chloride (NS Flush) 2 ml UNSCH PRN IV FLUSH FLUSH AFTER USING IV ACCESS ; Start 07/06/17 at 15:30 Sodium Chloride (NS Flush) 2 ml BID IV FLUSH Last administered on 07/07/17at 10: 44; Start 07/06/17 at 21:00 Ondansetron HCl (Zofran Inj) 4 mg Q6H PRN IVP NAUSEA OR VOMITING; Start at 15:30 Naloxone HCl (Narcan Inj) 0.4 mg UNSCH PRN IV PUSH SEE LABEL COMMENTS; Start at 15:30 Furosemide (Lasix Inj) 40 mg ONCE ONCE IV PUSH Last administered on 07/06/17at 16:56; Start 07/06/17 at 16:00; Stop 07/06/17 at 16:01; Status DC Ciprofloxacin/ Dextrose 200 ml @ 200 mls/hr Q12H IV Last administered on at 05:28; Start 07/06/17 at 17:00 Spironolactone (Aldactone) 25 mg BID@09,18 PO Last administered on 07/07/17at 10: 40; Start 07/06/17 at 18:00 Acetaminophen/ Codeine Phosphate (Tylenol-Codeine #3) 1 tab Q6H PRN PO PAIN Last administered on 07/07/17at 05:28; Start 07/06/17 at 16:30 Pantoprazole Sodium (Protonix Inj) 40 mg Q12H IV PUSH Last administered on at 05:28; Start 07/06/17 at 17:00 Ketorolac Tromethamine (Toradol Inj) 30 mg ONCE ONCE IV PUSH Last administered on 07/06/17at 21:47; Start 07/06/17 at 21:15; Stop 07/06/17 at 21:31; Status DC Ketorolac Tromethamine (Toradol Inj) 15 mg Q6H PRN IM pain; Start 07/07/17 at 07 :30; Stop 07/10/17 at 07:29 Temazepam (Restoril) 7.5 mg HS PRN PO insomnia; Start 07/07/17 at 07:30 Potassium Bicarb/ Potassium Chloride (K-Lyte Cl Eff) 25 meq Q12HR PO Last administered on 07/07/17at 10:40; Start 07/07/17 at 09:00 Family History Reviewed and significant for mother from cancer, father with liver disease, hepatitis C, then eventually suicide Social History Patient quit drinking 2 weeks ago, she is up to 6-8 drinks daily. She is down to 3 cigarettes daily now, however prior to 3 weeks ago she is smoking half a pack a cigarettes a day since she was 8 years old. Patient does smoke marijuana daily. Patient states that she used to have a drug habit of opiates, cocaine in the past Review of Systems Review of systems Patient denies any headache dizziness blurry vision, denies any chest pain shortness of breath cough fever chills, Denies any palpitations or fatigue denies any polyuria dysuria hematuria, denies any numbness tingling or weakness, denies any skin rash pruritus or jaundice, denies any easy bruising or bleeding tendency, denies any recent change in mood GI Exam Vitals I&O Vital Signs Date Time Temp Pulse Resp B/P (MAP) Pulse Ox O2 Delivery O2 Flow Rate FiO2 07/07/17 08:00 96.9 98 14 90/55 (67) 98 07/07/17 07:25 97.3 106 20 104/58 (73) 100 07/07/17 00:00 96.7 104 20 104/73 (83) 97 07/06/17 20:00 97.3 106 20 104/58 (73) 100 07/06/17 16:00 98.1 108 16 100/74 (83) 99 07/06/17 15:58 07/06/17 15:35 114 16 103/60 (74) 100 Room Air 07/06/17 13:44 114 16 110/70 (83) 100 Room Air 07/06/17 11:40 16 100 Room Air 07/06/17 11:14 98.2 114 16 134/79 (97) 100 I/O 07/06/17 07/06/17 07/06/17 07/07/17 07/07/17 07/07/17 07:00 15:00 23:00 07:00 15:00 23:00 Intake Total 102 ml 440 ml 2 ml Balance 102 ml 440 ml 2 ml Intake Oral 240 ml IV Total 102 ml 200 ml 2 ml # Voids 2 2 Imaging Last Impressions Abdomen/Pelvis CT 07/06/17 1140 Signed Impressions: Service Date/Time: Thursday, July 06, 2017 13:34 - CONCLUSION: 1. Decreased attenuation within the liver which can be seen with hepatic steatosis/liver dysfunction. 2. Large amount of ascites. 3. Diffuse nonspecific thickening throughout the small bowel without obstruction. 4. Uterine leiomyoma. 5. Splenomegaly. Isaac Coffey MD Laboratory Test 07/06/17 11:49 07/06/17 12:08 07/06/17 18:30 07/07/17 05:57 White Blood Count 9.6 TH/MM3 6.3 TH/MM3 Red Blood Count 3.03 MIL/MM3 2.71 MIL/MM3 Hemoglobin 8.9 GM/DL 8.1 GM/DL Hematocrit 28.3 % 25.2 % Mean Corpuscular Volume 93.5 FL 93.1 FL Mean Corpuscular Hemoglobin 29.3 PG 30.1 PG Mean Corpuscular Hemoglobin Concent 31.4 % 32.4 % Red Cell Distribution Width 19.8 % 20.5 % Platelet Count 246 TH/MM3 194 TH/MM3 Mean Platelet Volume 8.1 FL 7.9 FL Neutrophils (%) (Auto) 73.4 % 60.4 % Lymphocytes (%) (Auto) 15.1 % 29.1 % Monocytes (%) (Auto) 10.0 % 8.5 % Eosinophils (%) (Auto) 0.8 % 1.0 % Basophils (%) (Auto) 0.7 % 1.0 % Neutrophils # (Auto) 7.0 TH/MM3 3.8 TH/MM3 Lymphocytes # (Auto) 1.4 TH/MM3 1.8 TH/MM3 Monocytes # (Auto) 1.0 TH/MM3 0.5 TH/MM3 Eosinophils # (Auto) 0.1 TH/MM3 0.1 TH/MM3 Basophils # (Auto) 0.1 TH/MM3 0.1 TH/MM3 CBC Comment AUTO DIFF AUTO DIFF Differential Comment AUTO DIFF CONFIRMED AUTO DIFF CONFIRMED Platelet Estimate NORMAL Platelet Morphology Comment NORMAL Rouleau PRESENT Prothrombin Time 14.1 SEC Prothromb Time International Ratio 1.4 RATIO Activated Partial Thromboplast Time 28.3 SEC Blood Urea Nitrogen 3 MG/DL 2 MG/DL Creatinine 0.62 MG/DL 0.57 MG/DL Random Glucose 126 MG/DL 100 MG/DL Total Protein 6.6 GM/DL 5.8 GM/DL Albumin 1.8 GM/DL 1.6 GM/DL Calcium Level 8.1 MG/DL 7.6 MG/DL Alkaline Phosphatase 177 U/L 146 U/L Aspartate Amino Transf (AST/SGOT) 90 U/L 72 U/L Alanine Aminotransferase (ALT/SGPT) 24 U/L 22 U/L Total Bilirubin 4.7 MG/DL 3.6 MG/DL Sodium Level 134 MEQ/L 133 MEQ/L Potassium Level 2.5 MEQ/L 2.1 MEQ/L Chloride Level 97 MEQ/L 98 MEQ/L Carbon Dioxide Level 30.3 MEQ/L 25.9 MEQ/L Anion Gap 7 MEQ/L 9 MEQ/L Estimat Glomerular Filtration Rate 105 ML/MIN 116 ML/MIN Magnesium Level 2.2 MG/DL Lipase 75 U/L Ethyl Alcohol Level LESS THAN 3 MG/DL Urine Collection Type CLEAN CATCH Urine Color DEBRA Urine Turbidity MARKED Urine pH 6.5 Urine Specific [place] 1.021 Urine Protein 100 mg/dL Urine Glucose (UA) 100 mg/dL Urine Ketones 15 mg/dL Urine Occult Blood SMALL Urine Nitrite POS Urine Bilirubin LARGE Urine Leukocyte Esterase LARGE Urine RBC 4-9 /hpf Urine WBC 50-99 /hpf Urine WBC Clumps MOD Urine Squamous Epithelial Cells > 8 /hpf Urine Calcium Oxalate Crystals FEW /hpf Urine Amorphous Sediment MOD Urine Bacteria MOD /hpf Microscopic Urinalysis Comment CULTURE INDICATED Urine Collection Time 1210 Phosphorus Level 2.4 MG/DL Thyroid Stimulating Hormone 3rd Gen 6.100 uIU/ML Test 07/07/17 08:45 Date/Time Source Procedure Growth Status 07/06/17 12:08 Urine Clean Catch Urine Culture Pending Received Physical Examination HEENT: Pupils round and reactive to light; normocephalic; atraumatic; no jaundice. Throat is clear. NECK: Neck is supple, no JVD, no lymphadenopathy. CHEST: Chest is clear to auscultation and percussion. CARDIAC: Regular rate and rhythm with no murmur gallop or rubs. ABDOMEN: Soft, mildly distended but diffusely tender no rebound or guarding; no hepatosplenomegaly; bowel sounds are present in all four quadrants. EXTREMITIES: No clubbing, cyanosis, or edema. SKIN: Normal; no rash; no jaundice. BILLET GRINDER: No focal deficits; alert and oriented times three. Assessment and Plan Plan Abdominal pain, nausea with vomiting, hematemesis, anemia, alcoholism, coagulopathy, alcoholic hepatitis, hypoalbuminemia, and abnormal CT Agree with current supportive care Monitor labs Replace albumin Agree with paracentesis Liver workup EGD tomorrow Stop alcohol Low-salt diet Carlos Crawford MD Jul 07, 2017 10:59
[2017-07-07] MEDS ORDERED: diphenhydrAMINE HCL 25 MG CAP PO PRN (15:00)
[2017-07-07 15:06] LABS: IRON (FE) 35 MCG/DL (50-170)
[2017-07-07 15:31] LABS: % SATURATION IRON PROFILE 24.5 % (20-50); TOTAL IRON BINDING CAPACITY 143 MCG/DL (250-450)
[2017-07-07] MEDS ORDERED: LORazepam 0.5 MG TAB PO PRN (17:00)
[2017-07-08] VITALS: BP 106/64; PULSE 90; RESP 16; TEMP 97.3; O2SAT 99
[2017-07-08] MEDS: PANTOPRAZOLE SODIUM 40 MG VIAL IV PUSH SCH ×2 (05:24→18:03)
[2017-07-08] MEDS: CIPROFLOXACIN 400 MG PREMIX 200 ML IV SCH ×2 (05:24→18:03)
[2017-07-08] MEDS: ACETAMINOPHEN/CODEINE 300 MG/30 MG TAB PO PRN (05:30)
[2017-07-08 07:30] VITALS: BP 102/60; PULSE 106; RESP 16; TEMP 98.2; O2SAT 97
[2017-07-08] MEDS: SODIUM CHLORIDE 0.9% FLUSH 10 ML FLUSH IV FLUSH SCH ×2 (09:00→20:45)
[2017-07-08] MEDS: POTASSIUM CHLORIDE 25 MEQ EFFERVESCENT TAB PO SCH (09:00)
--- NOTE | 2017-07-08 09:05 | PD.PROCEDR ---
GI Procedure PROCEDURE PERFORMED Esophagoscopy INDICATION FOR PROCEDURE Nausea vomiting severe hematemesis chest discomfort PROCEDURE: The procedure, risks and benefits were discussed with Ms. Monaco and informed consent was obtained. Anesthesia sedated her with Diprivan. She was placed in the left lateral decubitus position. Esophagoscopy: The Pentax videoscope was introduced through the oropharynx and advanced to the distal portion of the esophagus under direct visualization. There was a large mucosal tear so the procedure was immediately terminated because most likely patient has a large tear from the nausea vomiting either Ashlyn-Zimmer or even Boerhaave ESTIMATED BLOOD LOSS: None SPECIMENS REMOVED: None COMPLICATIONS: None IMPRESSION: Exam was limited to the distal esophagus because of the finding of Large mucosal tear of the distal esophagus consistent with Ashlyn-Zimmer or Boerhaave most likely related to her nausea and vomiting PLAN: Nothing by mouth Upper GI series tomorrow Repeat endoscopy at a later date Protonix 40 mg daily IV No alcohol Norberto Gonzalez MD Jul 08, 2017 09:05
--- NOTE | 2017-07-08 09:10 | HHI.GIFU ---
Subjective Remarks Patient laying in bed, still complaining of chest discomfort nausea and retching but no vomiting or hematemesis Objective Vitals I&O Vital Signs Date Time Temp Pulse Resp B/P (MAP) Pulse Ox O2 Delivery O2 Flow Rate FiO2 07/08/17 07:30 98.2 106 16 102/60 (74) 97 07/08/17 00:00 97.3 90 16 106/64 (78) 99 07/07/17 20:00 98.3 93 16 103/63 (76) 98 07/07/17 18:00 97.3 103 14 110/71 (84) 94 07/07/17 16:00 104/58 (73) 07/07/17 12:00 104/58 (73) 07/07/17 12:00 97.1 105 14 108/66 (80) 98 I/O 07/07/17 07/07/17 07/07/17 07/08/17 07/08/17 07/08/17 07:00 15:00 23:00 07:00 15:00 23:00 Intake Total 440 ml 482 ml 920 ml 680 ml Balance 440 ml 482 ml 920 ml 680 ml Intake Oral 240 ml 480 ml 720 ml 480 ml IV Total 200 ml 2 ml 200 ml 200 ml # Voids 2 10 3 # Bowel Movements 0 Laboratory Laboratory Tests Test 07/07/17 11:00 07/07/17 13:20 Ferritin 22 Date/Time Source Procedure Growth Status 07/06/17 12:08 Urine Clean Catch Urine Culture - Preliminary Gram Negative Indra Resulted Physical Exam HEENT: Pupils round and reactive to light; normocephalic; atraumatic; Throat is clear. NECK: Neck is supple, no JVD, no lymphadenopathy. CHEST: Chest is clear to auscultation and percussion. CARDIAC: Regular rate and rhythm with no murmur gallop or rubs. ABDOMEN: Soft, ndistended, diffuse tenderness mostly in the midepigastric area ; no hepatosplenomegaly; bowel sounds are present in all four quadrants. EXTREMITIES: No clubbing, cyanosis, or edema. SKIN: Normal; no rash; OPERATIONAL RISK CONSULTANT: No focal deficits; alert and oriented times three. Assessment and Plan Plan Abdominal pain, nausea with vomiting, hematemesis, anemia, alcoholism, coagulopathy, alcoholic hepatitis, hypoalbuminemia, and abnormal CT 07/08/2017, still having nausea with retching no more hematemesis but complained of chest discomfort and abdominal discomfort had an endoscopy today Exam was limited to the distal esophagus because of the finding of Large mucosal tear of the distal esophagus consistent with Ashlyn-Zimmer or Boerhaave most likely related to her nausea and vomiting Patient has risk of perforation PLAN: Nothing by mouth Upper GI series tomorrow Repeat endoscopy at a later date Protonix 40 mg daily IV No alcohol Antiemetics as needed to prevent nausea and retching Agree with current supportive care Monitor labs Replace albumin Agree with paracentesis Liver workup Low-salt diet Norberto Gonzalez MD Jul 08, 2017 09:09
[2017-07-08] MEDS: SODIUM CHLOR 0.9% 1000 ML INJ 1,000 ML IV SCH (10:15)
[2017-07-08] MEDS: LORazepam 2 MG/ML VIAL IV PUSH PRN (11:18)
--- NOTE | 2017-07-08 11:50 | HHI.PR ---
Subjective Remarks patient seen today in follow-up for LFT elevation and gastric intestinal bleeding. Patient with esophageal tear on endoscopy. No further bleeding noted. Patient complaining of anxiety and pain Objective Vitals Vital Signs Date Time Temp Pulse Resp B/P (MAP) Pulse Ox O2 Delivery O2 Flow Rate FiO2 07/08/17 07:30 98.2 106 16 102/60 (74) 97 07/08/17 00:00 97.3 90 16 106/64 (78) 99 07/07/17 20:00 98.3 93 16 103/63 (76) 98 07/07/17 18:00 97.3 103 14 110/71 (84) 94 07/07/17 16:00 104/58 (73) 07/07/17 12:00 104/58 (73) 07/07/17 12:00 97.1 105 14 108/66 (80) 98 I/O 07/07/17 07/07/17 07/07/17 07/08/17 07/08/17 07/08/17 07:00 15:00 23:00 07:00 15:00 23:00 Intake Total 440 ml 482 ml 920 ml 680 ml 200 ml Balance 440 ml 482 ml 920 ml 680 ml 200 ml Intake Oral 240 ml 480 ml 720 ml 480 ml IV Total 200 ml 2 ml 200 ml 200 ml Other 200 ml # Voids 2 10 3 # Bowel Movements 0 Result Diagram: 07/07/17 0557 07/07/17 0557 Objective Remarks GENERAL: This is a well-nourished, well-developed patient, in no apparent distress. CARDIOVASCULAR: Regular rate and rhythm without murmurs, gallops, or rubs. RESPIRATORY: Clear to auscultation. Breath sounds equal bilaterally. No wheezes , rales, or rhonchi. GASTROINTESTINAL: Abdomen soft, non-tender, distended with fluid wave. Normal active bowel sounds MUSCULOSKELETAL: Extremities without clubbing, cyanosis, or edema. NEURO: Alert & Oriented x4 to person, place, time, situation. Moves all ext x4 A/P Problem List: (1) Intractable vomiting with nausea ICD Code: R11.2 - Nausea with vomiting, unspecified Status: Acute Plan: Likely multifactorial with associated hematemesis and abdominal pain. Status post endoscopy with Ashlyn-Zimmer tear, discussed with GI, continue nothing by mouth for now with follow-up for upper GI series tomorrow (2) Hypokalemia, gastrointestinal losses ICD Code: E87.6 - Hypokalemia Status: Acute Plan: We'll replace and continue to follow (3) Abdominal pain ICD Code: R10.9 - Unspecified abdominal pain Plan: Probably secondary to large ascites, paracentesis pending this afternoon Follow-up LFTs Empiric Cipro for SBP (4) UTI (urinary tract infection) ICD Code: N39.0 - Urinary tract infection, site not specified Plan: Continue with Cipro, for Escherichia coli (5) Anemia ICD Code: D64.9 - Anemia, unspecified Plan: Probably secondary to GI bleeding versus chronic liver disease (6) Elevated LFTs ICD Code: R79.89 - Other specified abnormal findings of blood chemistry Plan: Workup in progress, likely related to alcohol dependency Problem Qualifiers (1) Intractable vomiting with nausea: Qualified Codes: R11.2 - Nausea with vomiting, unspecified Adele Price MD Jul 08, 2017 11:50
[2017-07-08 12:00] VITALS: BP 127/62; PULSE 74; RESP 18; TEMP 97.9; O2SAT 100
[2017-07-08] MEDS ORDERED: POTASSIUM PHOSPHATE INJ 30 MMOL in SODIUM CHLOR 0.9% 250 ML INJ 250 ML IV ONE (12:00)
[2017-07-08] MEDS ORDERED: MORPHINE SULFATE 4 MG/ML INJ IV PUSH ONE (12:00)
[2017-07-08 15:20] LABS: HEPATITIS A AB IGM NEGATIVE (NEGATIVE); HEPATITIS B CORE AB IGM NEGATIVE (NEGATIVE); HEPATITIS B SURFACE ANTIGEN NEGATIVE (NEGATIVE); HEPATITIS C AB IgG NEGATIVE (NEGATIVE)
[2017-07-08 16:00] VITALS: BP 93/59; PULSE 84; RESP 16; TEMP 98.4; O2SAT 94
[2017-07-08 20:00] VITALS: BP_SYST 102; BP_SYST 129; BP_DIAS 63; BP_DIAS 66; PULSE 116; PULSE 78; RESP 18; RESP 20; TEMP 98; TEMP 98.4; O2SAT 94; O2SAT 98
[2017-07-09] VITALS: BP 100/56; PULSE 116; RESP 16; TEMP 97.8; O2SAT 95
[2017-07-09] MEDS: LORazepam 2 MG/ML VIAL IV PUSH PRN ×2 (00:05→16:08)
[2017-07-09] MEDS: CIPROFLOXACIN 400 MG PREMIX 200 ML IV SCH ×2 (05:31→16:12)
[2017-07-09] MEDS: PANTOPRAZOLE SODIUM 40 MG VIAL IV PUSH SCH ×2 (05:31→16:09)
[2017-07-09 06:41] LABS: AUTOMATED NEUTROPHIL # 5.6 TH/MM3 (1.8-7.7); BASOPHIL # 0.1 TH/MM3 (0-0.2); BASOPHIL % 0.6 % (0.0-2.0); EOSINOPHIL # 0.1 TH/MM3 (0-0.4); HEMATOCRIT 25.4 % (35.0-46.0); HEMOGLOBIN 7.9 GM/DL (11.6-15.3); LYMPH % 22.1 % (9.0-44.0); LYMPHOCYTE # 1.9 TH/MM3 (1.0-4.8); MEAN CELL VOLUME 96.1 FL (80.0-100.0); MEAN CORPUSCULAR HGB CONC 31.3 % (32.0-36.0); MONOCYTE # 0.8 TH/MM3 (0-0.9); NEUT % 67.3 % (16.0-70.0); PLATELET COUNT 211 TH/MM3 (150-450); RED BLOOD COUNT 2.65 MIL/MM3 (4.00-5.30); RED CELL DISTRIBUTION WIDTH 20.7 % (11.6-17.2); WHITE BLOOD COUNT 8.5 TH/MM3 (4.0-11.0)
[2017-07-09 07:10] LABS: BICARBONATE 24.6 MEQ/L (21.0-32.0); CALCIUM 7.7 MG/DL (8.5-10.1); CREATININE 0.42 MG/DL (0.50-1.00)
[2017-07-09 08:00] VITALS: BP 83/58; PULSE 110; RESP 16; TEMP 98.1; O2SAT 92
[2017-07-09] MEDS: SODIUM CHLORIDE 0.9% FLUSH 10 ML FLUSH IV FLUSH SCH ×2 (08:18→21:24)
[2017-07-09] MEDS: FUROSEMIDE 20 MG/2 ML VIAL IV PUSH SCH ×2 (08:21→08:38)
[2017-07-09] MEDS: SODIUM CHLOR 0.9% 1000 ML INJ 1,000 ML IV SCH (08:21)
[2017-07-09 12:00] VITALS: BP 92/51; PULSE 100; RESP 16; TEMP 98.6; O2SAT 95
--- NOTE | 2017-07-09 12:01 | HHI.PR ---
Subjective Remarks Patient seen and evaluated in follow-up for esophageal tear. Pain is improved. No new events Objective Vitals Vital Signs Date Time Temp Pulse Resp B/P (MAP) Pulse Ox O2 Delivery O2 Flow Rate FiO2 07/09/17 08:00 98.1 110 16 83/58 (66) 92 07/09/17 00:00 97.8 116 16 100/56 (71) 95 07/08/17 20:00 98.4 116 18 102/66 (78) 98 07/08/17 16:00 98.4 84 16 93/59 (70) 94 07/08/17 12:05 20 07/08/17 12:00 97.9 74 18 127/62 (83) 100 I/O 07/08/17 07/08/17 07/08/17 07/09/17 07/09/17 07/09/17 07:00 15:00 23:00 07:00 15:00 23:00 Intake Total 680 ml 200 ml 260 ml 0 ml Balance 680 ml 200 ml 260 ml 0 ml Intake Oral 480 ml 0 ml 0 ml IV Total 200 ml 260 ml Other 200 ml # Voids 3 2 # Bowel Movements 0 Result Diagram: 07/09/17 0440 07/09/17 0440 Objective Remarks GENERAL: This is a well-nourished, well-developed patient, in no apparent distress. CARDIOVASCULAR: Regular rate and rhythm without murmurs, gallops, or rubs. RESPIRATORY: Clear to auscultation. Breath sounds equal bilaterally. No wheezes , rales, or rhonchi. GASTROINTESTINAL: Abdomen soft, non-tender, distended with fluid wave. Normal active bowel sounds MUSCULOSKELETAL: Extremities without clubbing, cyanosis, or edema. NEURO: Alert & Oriented x4 to person, place, time, situation. Moves all ext x4 A/P Problem List: (1) Intractable vomiting with nausea ICD Code: R11.2 - Nausea with vomiting, unspecified Status: Acute Plan: Likely multifactorial with associated hematemesis and abdominal pain. Status post endoscopy with Ashlyn-Zimmer tear, Follow-up upper GI series (2) Hypokalemia, gastrointestinal losses ICD Code: E87.6 - Hypokalemia Status: Acute Plan: We'll replace and continue to follow (3) Abdominal pain ICD Code: R10.9 - Unspecified abdominal pain Plan: Improves, ascites improved after Lasix Patient now complaining of hunger pains (4) UTI (urinary tract infection) ICD Code: N39.0 - Urinary tract infection, site not specified (5) Anemia ICD Code: D64.9 - Anemia, unspecified Plan: Probably secondary to GI bleeding versus chronic liver disease (6) Elevated LFTs ICD Code: R79.89 - Other specified abnormal findings of blood chemistry Plan: Workup in progress, likely related to alcohol dependency Problem Qualifiers (1) Intractable vomiting with nausea: Qualified Codes: R11.2 - Nausea with vomiting, unspecified Adele Price MD Jul 09, 2017 12:01
[2017-07-09] MEDS ORDERED: DIATRIZOATE MEGLUM/DIATRIZOATE SOD 120 ML BTL (for RAD DIAG) PO ONE (13:30)
[2017-07-09 13:38] LABS: SMOOTH MUSCLE TOTAL AUTOABS Negative (Negative)
[2017-07-09 16:00] VITALS: BP 105/71; PULSE 102; RESP 18; TEMP 97.3; O2SAT 95
[2017-07-09] MEDS: KETOROLAC TROMETHAMINE 30 MG/ML (IVP) VIAL IV PUSH PRN (16:12)
--- NOTE | 2017-07-09 19:14 | HHI.GIFU ---
Subjective Remarks Patient feels ok, Still weak, she would like to eat Objective Vitals I&O Vital Signs Date Time Temp Pulse Resp B/P (MAP) Pulse Ox O2 Delivery O2 Flow Rate FiO2 07/09/17 16:00 97.3 102 18 105/71 (82) 95 07/09/17 12:00 98.6 100 16 92/51 (65) 95 07/09/17 08:00 98.1 110 16 83/58 (66) 92 07/09/17 00:00 97.8 116 16 100/56 (71) 95 07/08/17 20:00 98.4 116 18 102/66 (78) 98 I/O 07/08/17 07/08/17 07/08/17 07/09/17 07/09/17 07/09/17 07:00 15:00 23:00 07:00 15:00 23:00 Intake Total 680 ml 200 ml 260 ml 0 ml 0 ml Balance 680 ml 200 ml 260 ml 0 ml 0 ml Intake Oral 480 ml 0 ml 0 ml 0 ml IV Total 200 ml 260 ml Other 200 ml # Voids 3 2 1 1 # Bowel Movements 0 0 Laboratory Laboratory Tests Test 07/09/17 04:40 White Blood Count 8.5 Red Blood Count 2.65 Hemoglobin 7.9 Hematocrit 25.4 Mean Corpuscular Volume 96.1 Mean Corpuscular Hemoglobin 30.0 Mean Corpuscular Hemoglobin Concent 31.3 Red Cell Distribution Width 20.7 Platelet Count 211 Mean Platelet Volume 8.0 Neutrophils (%) (Auto) 67.3 Lymphocytes (%) (Auto) 22.1 Monocytes (%) (Auto) 9.0 Eosinophils (%) (Auto) 1.0 Basophils (%) (Auto) 0.6 Neutrophils # (Auto) 5.6 Lymphocytes # (Auto) 1.9 Monocytes # (Auto) 0.8 Eosinophils # (Auto) 0.1 Basophils # (Auto) 0.1 CBC Comment DIFF FINAL Differential Comment Blood Urea Nitrogen 1 Creatinine 0.42 Random Glucose 67 Calcium Level 7.7 Sodium Level 140 Potassium Level 3.5 Chloride Level 107 Carbon Dioxide Level 24.6 Anion Gap 8 Estimat Glomerular Filtration Rate 165 Date/Time Source Procedure Growth Status 07/06/17 12:08 Urine Clean Catch Urine Culture - Final Escherichia Coli Complete Physical Exam HEENT: Pupils round and reactive to light; normocephalic; atraumatic; Throat is clear. NECK: Neck is supple, no JVD, no lymphadenopathy. CHEST: Chest is clear to auscultation and percussion. CARDIAC: Regular rate and rhythm with no murmur gallop or rubs. ABDOMEN: Soft,mild, diffuse tenderness mostly in the midepigastric area; no hepatosplenomegaly; bowel sounds are present in all four quadrants. EXTREMITIES: No clubbing, cyanosis, or edema. SKIN: Normal; no rash; SYSTEMS INTEGRATION ADVISOR: No focal deficits; alert and oriented times three. Assessment and Plan Plan Abdominal pain, nausea with vomiting, hematemesis, anemia, alcoholism, coagulopathy, alcoholic hepatitis, hypoalbuminemia, and abnormal CT 07/08/2017, still having nausea with retching no more hematemesis but complained of chest discomfort and abdominal discomfort had an endoscopy today Exam was limited to the distal esophagus because of the finding of Large mucosal tear of the distal esophagus consistent with Ashlyn-Zimmer or Boerhaave most likely related to her nausea and vomiting Patient has risk of perforation 2017 Patient is doing very well waiting for upper GI series today to decide how to proceed, patient shad stricture in the past duct was dilated to but unfortunately can not dilate at this point because of the tear of the esophagus PLAN: Nothing by mouth await Upper GI series Repeat endoscopy at a later date Protonix 40 mg daily IV No alcohol Antiemetics as needed to prevent nausea and retching Agree with current supportive care Monitor labs Replace albumin Agree with paracentesis Liver workup Low-salt diet Norberto Gonzalez MD Jul 09, 2017 19:14
[2017-07-09 20:00] VITALS: BP 94/57; PULSE 102; RESP 18; TEMP 96.5; O2SAT 96
[2017-07-09] MEDS: ONDANSETRON HCL 4 MG/2 ML VIAL IVP PRN (21:24)
[2017-07-10 00:10] VITALS: BP 84/56; PULSE 102; RESP 16; TEMP 97.2; O2SAT 95
[2017-07-10] MEDS: SODIUM CHLOR 0.9% 1000 ML INJ 1,000 ML IV SCH ×2 (01:57→16:00)
[2017-07-10 04:00] VITALS: BP 96/62; PULSE 98
[2017-07-10] MEDS: CIPROFLOXACIN 400 MG PREMIX 200 ML IV SCH (04:50)
[2017-07-10] MEDS: PANTOPRAZOLE SODIUM 40 MG VIAL IV PUSH SCH (04:51)
[2017-07-10 08:00] VITALS: BP 95/65; PULSE 106; RESP 18; TEMP 97.1; O2SAT 96
[2017-07-10] MEDS: FUROSEMIDE 20 MG/2 ML VIAL IV PUSH SCH ×2 (08:01→09:46)
[2017-07-10] MEDS: SODIUM CHLORIDE 0.9% FLUSH 10 ML FLUSH IV FLUSH SCH ×2 (08:01→21:00)
[2017-07-10] MEDS: LORazepam 2 MG/ML VIAL IV PUSH PRN ×2 (08:02→13:49)
[2017-07-10] MEDS: KETOROLAC TROMETHAMINE 30 MG/ML (IVP) VIAL IV PUSH PRN (08:03)
--- NOTE | 2017-07-10 09:00 | RADRPT ---
EXAM DATE/TIME: 07/09/2017 13:26 [facility] COMPARISON: No previous studies available for comparison. INDICATIONS : Nausea and vomiting. Hematemasis. Distal esophagus mucosal tear found on endoscopy. FLUORO TIME: 3.1 minutes IMAGE COUNT: 26 CONTRAST: 1. MD Banks MEDICAL HISTORY : Hypertension. SURGICAL HISTORY : Tubal ligation. ENCOUNTER: Subsequent ACUITY: 4 - 6 days PAIN SCORE: 3/10 LOCATION: Esophagus. FINDINGS: Preliminary film is unremarkable. Patient was only able to ingest a small amount of contrast. Examination of the swallowing function de monstrates no evidence of aspiration or penetration. The body of the esophagus is unremarkable. No r eflux or hiatal hernia is identified. No leak seen. Examination of the stomach demonstrates no evidence of intraluminal mass or extrinsic compression. T he gastric volume appears normal and there are no findings of ulceration. The mucosal pattern appear s normal. The duodenal bulb and duodenal sweep appear normal. The visualized small bowel is unremar kable. CONCLUSION: Unremarkable upper gastrointestinal examination. Isaac Coffey MD on July 10, 2017 at 8:57 Board Certified Radiologist. This report was verified electronically.
--- NOTE | 2017-07-10 11:50 | HHI.PR ---
Subjective Remarks Patient seen in follow up for abd pain and esophageal tear Doing better, pain improved Objective Vitals Vital Signs Date Time Temp Pulse Resp B/P (MAP) Pulse Ox O2 Delivery O2 Flow Rate FiO2 07/10/17 08:00 97.1 106 18 95/65 (75) 96 07/10/17 04:00 98 96/62 (73) 07/10/17 00:10 97.2 102 16 84/56 (65) 95 07/09/17 20:00 96.5 102 18 94/57 (69) 96 07/09/17 16:00 97.3 102 18 105/71 (82) 95 07/09/17 12:00 98.6 100 16 92/51 (65) 95 I/O 07/09/17 07/09/17 07/09/17 07/10/17 07/10/17 07/10/17 07:00 15:00 23:00 07:00 15:00 23:00 Intake Total 0 ml 0 ml 1616 ml Balance 0 ml 0 ml 1616 ml Intake Oral 0 ml 0 ml 0 ml IV Total 1616 ml # Voids 2 1 1 2 # Bowel Movements 0 0 2 Result Diagram: 07/09/17 0440 07/09/17 0440 Imaging Last Impressions Upper GI Series 07/09/17 0000 Signed Impressions: Service Date/Time: Sunday, July 09, 2017 13:26 - CONCLUSION: Unremarkable upper gastrointestinal examination. Isaac Coffey MD Abdomen/Pelvis CT 07/06/17 1140 Signed Impressions: Service Date/Time: Thursday, July 06, 2017 13:34 - CONCLUSION: 1. Decreased attenuation within the liver which can be seen with hepatic steatosis/liver dysfunction. 2. Large amount of ascites. 3. Diffuse nonspecific thickening throughout the small bowel without obstruction. 4. Uterine leiomyoma. 5. Splenomegaly. Isaac Coffey MD Objective Remarks GENERAL: This is a well-nourished, well-developed patient, in no apparent distress. CARDIOVASCULAR: Regular rate and rhythm without murmurs, gallops, or rubs. RESPIRATORY: Clear to auscultation. Breath sounds equal bilaterally. No wheezes , rales, or rhonchi. GASTROINTESTINAL: Abdomen soft, non-tender, distended with fluid wave. Normal active bowel sounds MUSCULOSKELETAL: Extremities without clubbing, cyanosis, or edema. NEURO: Alert & Oriented x4 to person, place, time, situation. Moves all ext x4 A/P Problem List: (1) Intractable vomiting with nausea ICD Code: R11.2 - Nausea with vomiting, unspecified Status: Acute Plan: Likely multifactorial with associated hematemesis and abdominal pain. Status post endoscopy with Ashlyn-Zimmer tear, negative GI series advanced diet (2) Hypokalemia, gastrointestinal losses ICD Code: E87.6 - Hypokalemia Status: Acute Plan: We'll replace and continue to follow (3) Abdominal pain ICD Code: R10.9 - Unspecified abdominal pain Plan: Improves, ascites improved after Lasix Patient now complaining of hunger pains (4) UTI (urinary tract infection) ICD Code: N39.0 - Urinary tract infection, site not specified Plan: Cipro PO x 3 total days, uncomplicated (5) Anemia ICD Code: D64.9 - Anemia, unspecified Plan: Probably secondary to GI bleeding versus chronic liver disease Resolved Hg 7.9 (6) Elevated LFTs ICD Code: R79.89 - Other specified abnormal findings of blood chemistry Plan: Workup in progress, likely related to alcohol dependency Problem Qualifiers (1) Intractable vomiting with nausea: Qualified Codes: R11.2 - Nausea with vomiting, unspecified Adele Price MD Jul 10, 2017 11:50
[2017-07-10 12:00] VITALS: BP 94/62; PULSE 101; RESP 16; TEMP 97.6; O2SAT 96
[2017-07-10] MEDS: ONDANSETRON HCL 4 MG/2 ML VIAL IVP PRN (12:48)
[2017-07-10] MEDS ORDERED: MORPHINE SULFATE 4 MG/ML INJ IV PUSH PRN (14:00)
[2017-07-10 16:00] VITALS: BP 92/54; PULSE 103; RESP 16; TEMP 97.2; O2SAT 96
[2017-07-10] MEDS ORDERED: KETOROLAC TROMETHAMINE 30 MG/ML (IVP) VIAL IV PUSH PRN (17:00)
[2017-07-10 20:00] VITALS: BP 97/64; PULSE 107; RESP 16; TEMP 97.9; O2SAT 95
[2017-07-10] MEDS ORDERED: PANTOPRAZOLE SOD 40 MG DELAYED RELEASE TAB PO SCH (21:00)
[2017-07-11] VITALS: BP 92/55; PULSE 98; RESP 16; TEMP 97.9; O2SAT 97
[2017-07-11] MEDS: SODIUM CHLOR 0.9% 1000 ML INJ 1,000 ML IV SCH (05:12)
[2017-07-11 08:00] VITALS: BP 92/59; PULSE 107; RESP 18; TEMP 98.2; O2SAT 97
[2017-07-11] MEDS: SODIUM CHLORIDE 0.9% FLUSH 10 ML FLUSH IV FLUSH SCH (08:27)
[2017-07-11] MEDS ORDERED: PANTOPRAZOLE SODIUM 40 MG VIAL IV PUSH SCH (09:00)
[2017-07-11] MEDS ORDERED: PANTOPRAZOLE SOD 40 MG DELAYED RELEASE TAB PO SCH (09:00)
[2017-07-11] MEDS ORDERED: ALUMINUM HYDROXIDE PO SCH (09:30)
--- NOTE | 2017-07-11 09:50 | HHI.DCPOC ---
Discharge Care Plan Diagnosis: (1) Esophageal tear (2) Hematemesis (3) Intractable vomiting with nausea Additional Problems Refrain from NSAIDs and tylenol for pain; avoid Peptobismal. If pain worsens, return to ER. May take Mylanta or antacids for abdominal pain. STOP SMOKING THC , this will make your vomiting worse. Goals to Promote Your Health * To prevent worsening of your condition and complications * To maintain your health at the optimal level Directions to Meet Your Goals Take your medications as prescribed Follow your dietary instruction Follow activity as directed Keep your appointments as scheduled Take your immunizations and boosters as scheduled If your symptoms worsen call your PCP, if no PCP go to Urgent Care Center or Emergency Room Smoking is Dangerous to Your Health. Avoid second hand smoke Call the 24-hour hour crisis hotline for domestic abuse at Lloyd Coleman MD Jul 11, 2017 09:50
[2017-07-11] MEDS ORDERED: POTA-163 PO (09:53)
[2017-07-11] MEDS ORDERED: PANT40TA3 PO (09:53)
[2017-07-11] MEDS ORDERED: ALUM320S2 PO (09:53)
[2017-07-11] MEDS ORDERED: ALUM1SUS11 PO (10:27)
[2017-07-11] MEDS ORDERED: LIDOCAINE HCL 1% PF 5 ML SYRINGE OTHER ONE (12:00)
[2017-07-11] MEDS ORDERED: PROPOFOL 200 MG/20 ML AMP IV ONE (12:00)
--- NOTE | 2017-07-11 12:17 | HHI.DS ---
Discharge Summary Admission Date Jul 06, 2017 at 14:27 Discharge Date: Jul 11, 2017 Admitting Diagnosis intract n/v,hypokalemia,tachycardia,liver cirrhosis (1) Intractable vomiting with nausea ICD Code: R11.2 - Nausea with vomiting, unspecified Status: Acute (2) Hypokalemia, gastrointestinal losses ICD Code: E87.6 - Hypokalemia Status: Acute (3) Abdominal pain ICD Code: R10.9 - Unspecified abdominal pain (4) UTI (urinary tract infection) ICD Code: N39.0 - Urinary tract infection, site not specified (5) Anemia ICD Code: D64.9 - Anemia, unspecified (6) Elevated LFTs ICD Code: R79.89 - Other specified abnormal findings of blood chemistry Procedures EGD: Exam was limited to the distal esophagus because of the finding of Large mucosal tear of the distal esophagus consistent with Ashlyn-Zimmer or Boerhaave most likely related to her nausea and vomiting Brief History - From Admission Written by Terry Mcnair, acting as scribe for Dr. Price on 07/06/17 at 16: 24. 42-year-old female with known history of hypertension, history of alcoholism, history of esophageal stricture who presented to the hospital because of intractable nausea, vomiting, hematemesis. Patient indicates that her symptoms last November when she was in the hospital she had been doing well. She had continued drinking approximate 6 drinks daily but then 3 weeks ago she decided to quit and since then she has been having significant abdominal issues with abdominal pain, nausea, vomiting, she states that there is been episodes of her vomiting with red string-like material in it. Soft stools. Increased abdominal girth with weight loss. She indicates that she has lost approximately 15 pounds in the last 2 weeks. She indicates that whenever she tries to drink any liquids able come back up and she'll spit it out. Any time that she eats the first bite of food will go down, however after that she will vomit. The patient states that she is tried Pedialyte without any significant improvement. She is tried Rolaids, Tums, Pepto-Bismol. Over the last 4-5 days she has also been using Children's Motrin because of the abdominal discomfort on her abdominal sides. Patient did have evaluation done emergency department, patient found to have multiple problems with liver enzyme elevation, hypokalemia , anemia. Is recommended patient be admitted for further evaluation and management. CBC/BMP: 07/09/17 0440 07/09/17 0440 Significant Findings Laboratory Tests Test 07/09/17 04:40 Red Blood Count 2.65 MIL/MM3 (4.00-5.30) Hemoglobin 7.9 GM/DL (11.6-15.3) Hematocrit 25.4 % (35.0-46.0) Mean Corpuscular Hemoglobin Concent 31.3 % (32.0-36.0) Red Cell Distribution Width 20.7 % (11.6-17.2) Monocytes (%) (Auto) 9.0 % (0.0-8.0) Blood Urea Nitrogen 1 MG/DL (7-18) Creatinine 0.42 MG/DL (0.50-1.00) Random Glucose 67 MG/DL (74-106) Calcium Level 7.7 MG/DL (8.5-10.1) Imaging Last Impressions Upper GI Series 07/09/17 0000 Signed Impressions: Service Date/Time: Sunday, July 09, 2017 13:26 - CONCLUSION: Unremarkable upper gastrointestinal examination. Isaac Coffey MD Abdomen/Pelvis CT 07/06/17 1140 Signed Impressions: Service Date/Time: Thursday, July 06, 2017 13:34 - CONCLUSION: 1. Decreased attenuation within the liver which can be seen with hepatic steatosis/liver dysfunction. 2. Large amount of ascites. 3. Diffuse nonspecific thickening throughout the small bowel without obstruction. 4. Uterine leiomyoma. 5. Splenomegaly. Isaac Coffey MD PE at Discharge Mild to moderate epigastrium tenderness to palpation, soft, nondistended Lying in bed, no acute distress, awake, alert Hospital Course Patient was admitted, started on Protonix. GI was consulted, performed EGD which showed an esophageal tear which they suspected could've been either due to Ashlyn-Zimmer or Boerhaave. No cauterization or hemostasis measures were required. Patient eventually started tolerating by mouth intake well with no further nausea vomiting. Patient was counseled extensively on avoiding any marijuana use or any usage of any NSAIDs or Tylenol. I injected her that she could take antacids such as Mylanta, Gaviscon. She was instructed that if her pain became probably worse to return to the emergency department. She had been diagnosed with the urinary tract infection of Escherichia coli and completed a successful course of 4 days worth of ciprofloxacin. Decision was made to hold off on paracentesis. She was instructed to take Protonix daily. Patient has met maximal benefit from hospitalization and is clinically stable for discharge. Pt Condition on Discharge: Stable Discharge Disposition: Discharge Home Discharge Time: <= 30 minutes Discharge Instructions DIET: Follow Instructions for: As Tolerated, No Restrictions Activities you can perform: Weight Bearing as Kacey Follow up Referrals: Gastroenterology - 1 Week PCP Follow-up - 1 Week New Medications: Alum-Mag Hydrox-Simethicone Liq (Antacid Advanced Liq) 400-400-40 Mg/5 Ml Susp 10 ML PO QID PRN for abdominal pain, #1 BOTTLE Potassium Chloride ER (Potassium Chloride ER) 20 Meq Tab 20 MEQ PO DAILY for Electrolyte Replacement, #30 TAB 0 Refills Pantoprazole (Pantoprazole) 40 Mg Tab 40 MG PO DAILY for esophageal tear, #30 TAB Lloyd Coleman MD Jul 11, 2017 12:17
[2017-07-12 03:50] LABS: MITOCHONDRIAL ABS LESS THAN 20.0 U (<=20.0)
== END 2017-07-11 12:34 | disposition home or self-care (01) | DRG 369 ==
LOC: PHED 10:55 → PHEDA 14:27 → PH3A 15:48
PROVIDERS: ADMIT Hospitalist; ATTEND Hospitalist
PROC: 0DJ08ZZ Inspection of Upper Intestinal Tract, Via Natural or Artificial Opening Endoscopic (ICD-10-PCS; principal; 2017-07-08 08:40)
DX: K22.6 Gastro-esophageal laceration-hemorrhage syndrome (principal); N39.0 Urinary tract infection, site not specified; B96.20 Unspecified Escherichia coli [E. coli] as the cause of diseases classified elsewhere; D68.9 Coagulation defect, unspecified; K70.31 Alcoholic cirrhosis of liver with ascites; R16.1 Splenomegaly, not elsewhere classified; K70.11 Alcoholic hepatitis with ascites; I10 Essential (primary) hypertension; E87.6 Hypokalemia; D64.9 Anemia, unspecified; F17.210 Nicotine dependence, cigarettes, uncomplicated; F12.90 Cannabis use, unspecified, uncomplicated; R00.0 Tachycardia, unspecified
CPT/HCPCS: 74177; 74240; 76937; 80048; 80053; 80074; 80307; 81001; 82390; 82607; 82728; 83520; 83540; 83550; 83690; 83735; 84100; 84439; 84443; 84703; 85025; 85610; 85730; 86038; 86255; 86850; 86900; 86901; 87077; 87086; 87186; 96365; 96375; C9113; J0744; J1885; J1940; J2060; J2270; J2405; J3480; J7030; J7050; Q9963; Q9967

== ENCOUNTER 2017-07-20 17:11 | Inpatient (IN) | payer SELFPAY ==
[~2017-07-20] VITALS: Ht 160 cm; Wt 62.0 kg
[~2017-07-20 17:11] MED LIST changes: +ALUM1SUS11 PO; +PANT40TA3 PO; +POTA-163 PO; -PROT40TA PO
[2017-07-20 17:20] VITALS: BP 109/70; PULSE 124; RESP 16; TEMP 98.8; O2SAT 100
[2017-07-20] MEDS ORDERED: FURO40TA PO (17:58)
[2017-07-20] MEDS ORDERED: CIPR500T2 PO (17:58)
[2017-07-20] MEDS ORDERED: HYDR-3516 PO (17:58)
--- NOTE | 2017-07-20 18:41 | PD ---
HPI Chief Complaint: Edema Time Seen by Provider: 18:04 Travel History International Travel<30 days: No Contact w/Intl Traveler<30days: No Traveled to known affect area: No History of Present Illness HPI The patient was seen and examined in the presence of the nurse. This patient complains of redness and warmth and pain and swelling in her legs. Duration 2 days. Severity is moderate. Patient was recently hospitalized here. 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 She at first reported that she had quit but then later admitted she had alcohol today. Denies fever. No active drainage from the legs. No alleviating factors. Symptoms exacerbated by liver failure with continued alcohol abuse PFSH Past Medical History Autoimmune Disease: No Anxiety: Yes Depression: Yes Heart Rhythm Problems: Yes (TACHY) Cancer: No Cardiovascular Problems: Yes (htn not on meds) Chemotherapy: No Cerebrovascular Accident: Yes (2010 [place] LEGALLY BLIND RIGHT EYEM SINCE ) Diminished Hearing: No Endocrine: No Gastrointestinal Disorders: Yes Genitourinary: No Hypertension: Yes (NOT TAKING MEDICATION CURRENTLY) Immune Disorder: No Implanted Vascular Access Dvce: No Musculoskeletal: No Neurologic: Yes Psychiatric: Yes (Bipolar) Reproductive: No Respiratory: No Immunizations Current: Yes Pneumonia: Yes Radiation Therapy: No Seizures: Yes (reaction to tramadol) Ulcer: Yes ?: Not LMP: apr, 2017 : 5 Para: 4 Miscarriage: 1 Tubal Ligation: Yes Past Surgical History Gynecologic Surgery: Yes (TUBAL ligation 1996) Other Surgery: Yes Social History Alcohol Use: Yes (STATES SHE HAD A HALF A DRINK TODAY AND PRIOR HAD NOT DRANK IN 30 DAYS) Tobacco Use: Yes (4- CIGS DAILY) Substance Use: Yes (NARCOTIC AND COCAINE) Allergies-Medications (Allergen,Severity, Reaction): Coded Allergies: penicillin G (Unverified Allergy, Severe, THROAT SWELLING, 07/20/17) tramadol (Unverified Allergy, Severe, 07/20/17) SEIZURE Reported Meds & Prescriptions Reported Meds & Active Scripts Active Antacid Advanced Liq (Alum-Mag Hydrox-Simethicone Liq) 400-400-40 Mg/5 Ml Susp 10 Ml PO QID PRN Potassium Chloride ER (Potassium Chloride) 20 Meq Tab 20 Meq PO DAILY Pantoprazole (Pantoprazole Sodium) 40 Mg Tab 40 Mg PO DAILY Reported Furosemide 40 Mg Tab 40 Mg PO DAILY Ciprofloxacin (Ciprofloxacin HCl) 500 Mg Tab 500 Mg PO BID Hydrocodone-Acetaminophen 5-325 mg Tab 1 Tab PO BID PRN Review of Systems General / Constitutional: No: Fever Eyes: No: Visual changes HENT: No: Headaches Cardiovascular: Positive: Edema, No: Chest Pain or Discomfort Respiratory: No: Shortness of Breath Gastrointestinal: No: Abdominal Pain Genitourinary: No: Dysuria Musculoskeletal: Positive: Weakness, Edema, No: Pain Skin: No Rash Neurologic: Positive: Weakness Psychiatric: Positive: Substance Abuse, No: Depression Endocrine: No: Polydipsia Hematologic/Lymphatic: No: Easy Bruising Physical Exam Narrative GENERAL: Disheveled well-developed patient in no apparent distress. SKIN: Focused skin assessment reveals no rash and nodules. Skin is Warm and dry. HEAD: Atraumatic. Normocephalic. EYES: Pupils equal and round. No scleral icterus. No injection or drainage. ENT: No nasal bleeding or discharge. Mucous membranes pink and moist. NECK: Trachea midline. No JVD. CARDIOVASCULAR: Regular rate and rhythm. No murmur appreciated. RESPIRATORY: No accessory muscle use. Clear to auscultation. Breath sounds equal bilaterally. GASTROINTESTINAL: Abdomen soft, non-tender, nondistended. Hepatic and splenic margins not palpable. MUSCULOSKELETAL: No obvious deformities. No clubbing. No cyanosis. Prominent pitting edema from the knees down symmetric fashion. Both legs and feet are erythematous and nontender. There is some faint yellow honey crusting in both feet. There is some skin sloughing primarily on the soles of both feet NEUROLOGICAL: Awake and alert. No obvious cranial nerve deficits. Motor grossly within normal limits. Normal speech. PSYCHIATRIC: Appropriate mood and affect; insight and judgment poor. Data Data Last Documented VS Vital Signs Date Time Temp Pulse Resp B/P (MAP) Pulse Ox O2 Delivery O2 Flow Rate FiO2 07/20/17 17:20 98.8 124 16 109/70 (83) 100 Orders Orders Ed Urine Pregnancytest Poc (07/20/17 17:14) MDM Medical Decision Making Medical Screen Exam Complete: Yes Emergency Medical Condition: Yes Medical Record Reviewed: Yes Differential Diagnosis Cellulitis, DVT, anasarca Narrative Course I have reviewed the patient's electronic medical record. I reviewed this patient's admission history and physical and discharge summary from a week ago. I'm seeing this patient 20 minutes before shift and I'm going to order a workup and case will be checked out to Dr. Mcnair to assist with disposition It appears that she has bilateral lower extremity cellulitis Likely has poor immune system given her liver failure and continued drinking I've ordered 1 g IV vancomycin Diagnosis Primary Impression: Bilateral cellulitis of lower leg Additional Impression: Liver failure without hepatic coma Qualified Codes: K72.10 - Chronic hepatic failure without coma Admitting Information Admitting Physician Requests: Admit Terry Liao MD Jul 20, 2017 18:41
[2017-07-20] MEDS ORDERED: VANCOMYCIN INJ 1,000 MG in SODIUM CHLOR 0.9% 250 ML INJ 250 ML IV ONE (18:45)
[2017-07-20 19:08] LABS: AUTOMATED NEUTROPHIL # 8.6 TH/MM3 (1.8-7.7); BASOPHIL # 0.2 TH/MM3 (0-0.2); BASOPHIL % 1.8 % (0.0-2.0); EOSINOPHIL # 0.1 TH/MM3 (0-0.4); EOSINOPHIL % 1.3 % (0.0-4.0); HEMATOCRIT 26.9 % (35.0-46.0); HEMOGLOBIN 8.6 GM/DL (11.6-15.3); LYMPH % 8.6 % (9.0-44.0); LYMPHOCYTE # 0.9 TH/MM3 (1.0-4.8); MEAN CELL VOLUME 92.4 FL (80.0-100.0); MEAN CORPUSCULAR HEMOGLOBIN 29.4 PG (27.0-34.0); MEAN CORPUSCULAR HGB CONC 31.9 % (32.0-36.0); MEAN PLATELET VOLUME 8.1 FL (7.0-11.0); MONO % 3.3 % (0.0-8.0); MONOCYTE # 0.3 TH/MM3 (0-0.9); PLATELET COUNT 221 TH/MM3 (150-450); RED BLOOD COUNT 2.91 MIL/MM3 (4.00-5.30); RED CELL DISTRIBUTION WIDTH 18.4 % (11.6-17.2); WHITE BLOOD COUNT 10.1 TH/MM3 (4.0-11.0)
[2017-07-20 19:25] LABS: ALBUMIN 1.5 GM/DL (3.4-5.0); ALKALINE PHOSPHATASE 167 U/L (45-117); ALT (GPT) 15 U/L (10-53); AST (GOT) 49 U/L (15-37); BICARBONATE 28.6 MEQ/L (21.0-32.0); BLOOD UREA NITROGEN 2 MG/DL (7-18); CALCIUM-PROTEIN CORRECTED 7.7 MG/DL (8.5-10.1); CHLORIDE 96 MEQ/L (98-107); CREATININE 0.58 MG/DL (0.50-1.00); GLOMERULAR FILTRATION RATE 113 ML/MIN (>89); GLUCOSE,RANDOM 128 MG/DL (74-106); SODIUM (NA) 134 MEQ/L (136-145); TOTAL BILIRUBIN ADULT 3.7 MG/DL (0.2-1.0); TOTAL PROTEIN 5.8 GM/DL (6.4-8.2)
[2017-07-20] MEDS ORDERED: NS + KCL 20 MEQ INJ 1,000 ML IV SCH (19:30)
[2017-07-20] MEDS ORDERED: POTASSIUM CHLORIDE 20 MEQ CONTROLLED RELEASE TAB PO ONE ×2 (19:30→21:00)
--- NOTE | 2017-07-20 19:57 | PD ---
Physical Exam Time Seen by Provider: 19:[address] Liao left this patient with me to check the laboratory and likely admit. Data Data Last Documented VS Vital Signs Date Time Temp Pulse Resp B/P (MAP) Pulse Ox O2 Delivery O2 Flow Rate FiO2 07/20/17 17:20 98.8 124 16 109/70 (83) 100 Orders Orders Ed Urine Pregnancytest Poc (07/20/17 17:14) Iv Access Insert/Monitor (07/20/17 18:42) Complete Blood Count With Diff (07/20/17 18:42) Comprehensive Metabolic Panel (07/20/17 18:42) Alcohol (Ethanol) (07/20/17 18:42) Vancomycin Inj (Vancomycin Inj) (07/20/17 18:45) Us Leg Venous Doppler Bilat (07/20/17 19:04) Potassium Chloride (Kcl) (07/20/17 19:30) Ns + Kcl 20 Meq Inj (Ns + Kcl 20 Meq Inj (07/20/17 19:30) Lipase (07/20/17 18:59) Labs Laboratory Tests Test 07/20/17 18:59 White Blood Count 10.1 TH/MM3 Red Blood Count 2.91 MIL/MM3 Hemoglobin 8.6 GM/DL Hematocrit 26.9 % Mean Corpuscular Volume 92.4 FL Mean Corpuscular Hemoglobin 29.4 PG Mean Corpuscular Hemoglobin Concent 31.9 % Red Cell Distribution Width 18.4 % Platelet Count 221 TH/MM3 Mean Platelet Volume 8.1 FL Neutrophils (%) (Auto) 85.0 % Lymphocytes (%) (Auto) 8.6 % Monocytes (%) (Auto) 3.3 % Eosinophils (%) (Auto) 1.3 % Basophils (%) (Auto) 1.8 % Neutrophils # (Auto) 8.6 TH/MM3 Lymphocytes # (Auto) 0.9 TH/MM3 Monocytes # (Auto) 0.3 TH/MM3 Eosinophils # (Auto) 0.1 TH/MM3 Basophils # (Auto) 0.2 TH/MM3 CBC Comment DIFF FINAL Differential Comment Blood Urea Nitrogen 2 MG/DL Creatinine 0.58 MG/DL Random Glucose 128 MG/DL Total Protein 5.8 GM/DL Albumin 1.5 GM/DL Calcium Level 7.0 MG/DL Alkaline Phosphatase 167 U/L Aspartate Amino Transf (AST/SGOT) 49 U/L Alanine Aminotransferase (ALT/SGPT) 15 U/L Total Bilirubin 3.7 MG/DL Sodium Level 134 MEQ/L Potassium Level 2.1 MEQ/L Chloride Level 96 MEQ/L Carbon Dioxide Level 28.6 MEQ/L Anion Gap 9 MEQ/L Estimat Glomerular Filtration Rate 113 ML/MIN Protein Corrected Calcium 7.7 MG/DL Ethyl Alcohol Level LESS THAN 3 MG/DL MDM Medical Record Reviewed: Yes Supervised Visit with ISABEL: No Interpretation(s) The CBC shows a hemoglobin of 8.6 and hematocrit of 26.9 with 85% neutrophils. The complete metabolic profile shows a glucose of 128, total protein 5.8, albumen 1.5, calcium 7.0 with corrected calcium of 7.7 and alkaline phosphatase of 167 and SGOT 49 with total bilirubin 3.7 and sodium 134 with potassium 2.1. The rest of the complete metabolic profile and anion gap is normal. The alcohol level is essentially 0. Differential Diagnosis Cellulitis, alcohol intoxication, DVT, electrolyte disorder, hypo-/hyperglycemia , liver enzyme elevation, hepatic failure, chronic alcohol abuse, anemia Narrative Course The patient is an unreliable patient and her cellulitis will likely not improve at home. She also has a significant hypokalemia with a potassium of 2.1. She does have liver failure with elevation of all of her LFTs and a bilirubin of 3.7. Despite her liver function abnormalities, she continues to drink vodka. Physician Communication Physician Communication I discussed the patient with Dr. Cordero, the patient will be admitted to her. Diagnosis Primary Impression: Bilateral cellulitis of lower leg Additional Impressions: Liver failure without hepatic coma Qualified Codes: K72.10 - Chronic hepatic failure without coma Hypokalemia Chronic alcohol abuse Admitting Information Admitting Physician Requests: Admit Nakul Mcnair MD Jul 20, 2017 19:57
--- NOTE | 2017-07-20 20:13 | RADRPT ---
EXAM DATE/TIME: 07/20/2017 19:40 [facility] COMPARISON: No previous studies available for comparison. INDICATIONS : Bilateral leg pain and swelling. MEDICAL HISTORY : Hypertension. Bilateral leg pain and swelling. Ulcer. Pneumonia. Stroke. Liver disease. Cirrhosis. SURGICAL HISTORY : Tubal ligation. ENCOUNTER: Initial ACUITY: 1 week PAIN SCORE: 8/10 LOCATION: Bilateral legs. TECHNIQUE: Venous ultrasound of the left and right leg was performed from the inguinal ligament to the proximal calf. Real-time, color Doppler and spectral tracing, compression and augmentation techniques were us ed. FINDINGS: RIGHT LEG: There is normal compressibility of the deep venous system from the inguinal region to the proximal ca lf. No echogenic clot is seen in the lumen of the common femoral, femoral, popliteal, and posterior tibial veins. There is a normal response of the venous system to proximal and distal augmentation an d respiration. LEFT LEG: There is normal compressibility of the deep venous system from the inguinal region to the proximal ca lf. No echogenic clot is seen in the lumen of the common femoral, femoral, popliteal, and posterior tibial veins. There is a normal response of the venous system to proximal and distal augmentation an d respiration. CONCLUSION: No DVT is identified within either lower extremity. Steven Jefferson MD on July 20, 2017 at 20:11 Board Certified Radiologist. This report was verified electronically.
[2017-07-20 20:40] VITALS: BP 112/68; PULSE 105; RESP 18; O2SAT 99
[2017-07-20] MEDS ORDERED: SODIUM CHLOR 0.9% 1000 ML INJ 1,000 ML IV SCH (20:41)
[2017-07-20] MEDS ORDERED: FLUMAZENIL 0.5 MG/5 ML VIAL IV PUSH PRN (20:45)
[2017-07-20] MEDS ORDERED: LORazepam 2 MG/ML VIAL IV PUSH PRN ×4 (20:45)
[2017-07-20] MEDS ORDERED: LORazepam 1 MG TAB PO PRN (20:45)
[2017-07-20] MEDS ORDERED: ACETAMINOPHEN 325 MG TAB PO PRN (20:45)
[2017-07-20] MEDS ORDERED: LACTULOSE SYRUP 20 GM/30 ML CUP PO PRN (20:45)
[2017-07-20] MEDS ORDERED: MAGNESIUM HYDROXIDE SUSP 30 ML CUP PO PRN (20:45)
[2017-07-20] MEDS ORDERED: HALOPERIDOL LACTATE 5 MG/ML AMP IM PRN (20:45)
[2017-07-20] MEDS ORDERED: BISACODYL 10 MG SUPP RECTAL PRN (20:45)
[2017-07-20] MEDS ORDERED: SENNOSIDES 8.6 MG TAB PO PRN (20:45)
[2017-07-20] MEDS ORDERED: ONDANSETRON HCL 4 MG/2 ML VIAL IVP PRN (20:45)
[2017-07-20] MEDS ORDERED: LORazepam 2 MG TAB PO PRN (20:45)
[2017-07-20] MEDS ORDERED: SODIUM CHLORIDE 0.9% FLUSH 10 ML FLUSH IV FLUSH PRN (20:45)
[2017-07-20] MEDS ORDERED: Vancomycin Consult Pharmacy 1 EA OTHER SCH (22:00)
[2017-07-20] MEDS: SODIUM CHLORIDE 0.9% FLUSH 10 ML FLUSH IV FLUSH SCH (22:25)
[2017-07-20 22:34] VITALS: PULSE 121
[2017-07-20] MEDS: DOCUSATE SODIUM 50 MG/SENNA 8.6 MG TAB PO SCH (23:25)
[2017-07-21 06:59] LABS: AUTOMATED NEUTROPHIL # 9.8 TH/MM3 (1.8-7.7); BASOPHIL # 0.1 TH/MM3 (0-0.2); BASOPHIL % 0.9 % (0.0-2.0); EOSINOPHIL # 0.3 TH/MM3 (0-0.4); EOSINOPHIL % 1.9 % (0.0-4.0); HEMATOCRIT 27.1 % (35.0-46.0); HEMOGLOBIN 8.6 GM/DL (11.6-15.3); LYMPH % 14.6 % (9.0-44.0); LYMPHOCYTE # 1.9 TH/MM3 (1.0-4.8); MEAN CELL VOLUME 93.5 FL (80.0-100.0); MEAN CORPUSCULAR HEMOGLOBIN 29.9 PG (27.0-34.0); MEAN CORPUSCULAR HGB CONC 31.9 % (32.0-36.0); MEAN PLATELET VOLUME 8.1 FL (7.0-11.0); MONO % 8.9 % (0.0-8.0); MONOCYTE # 1.2 TH/MM3 (0-0.9); NEUT % 73.7 % (16.0-70.0); PLATELET COUNT 216 TH/MM3 (150-450); RED BLOOD COUNT 2.89 MIL/MM3 (4.00-5.30); RED CELL DISTRIBUTION WIDTH 18.3 % (11.6-17.2); WHITE BLOOD COUNT 13.3 TH/MM3 (4.0-11.0)
[2017-07-21 07:24] LABS: ALBUMIN 1.5 GM/DL (3.4-5.0); BICARBONATE 32.5 MEQ/L (21.0-32.0); CALCIUM-PROTEIN CORRECTED 7.6 MG/DL (8.5-10.1); CREATININE 0.53 MG/DL (0.50-1.00); TOTAL BILIRUBIN ADULT 5.4 MG/DL (0.2-1.0); TOTAL PROTEIN 5.9 GM/DL (6.4-8.2)
[2017-07-21 08:00] VITALS: BP 120/68; PULSE 119; RESP 14; TEMP 97.1; O2SAT 92
[2017-07-21 08:11] LABS: MAGNESIUM 1.3 MG/DL (1.5-2.5)
[2017-07-21] MEDS: FOLIC ACID 1 MG TAB PO SCH (08:32)
[2017-07-21] MEDS: THIAMINE HCL 100 MG TAB PO SCH (08:32)
[2017-07-21] MEDS: MULTIVITAMINS/MINERALS THERAPEUTIC TAB PO SCH (08:32)
[2017-07-21] MEDS: DOCUSATE SODIUM 50 MG/SENNA 8.6 MG TAB PO SCH ×2 (08:32→21:21)
[2017-07-21] MEDS: SODIUM CHLORIDE 0.9% FLUSH 10 ML FLUSH IV FLUSH SCH ×2 (08:34→21:20)
[2017-07-21] MEDS: PANTOPRAZOLE SOD 40 MG DELAYED RELEASE TAB PO SCH (08:34)
[2017-07-21] MEDS ORDERED: POTASSIUM CHLORIDE INJ 20 MEQ in SODIUM CHLOR 0.9% 1000 ML INJ 1,000 ML IV SCH (09:00)
[2017-07-21] MEDS ORDERED: POTASSIUM CHLORIDE 25 MEQ EFFERVESCENT TAB NG SCH (09:00)
[2017-07-21] MEDS ORDERED: CALCIUM GLUCONATE INJ 1 GM in SODIUM CHLORIDE 0.9% INJ 100 ML IV ONE (09:00)
[2017-07-21] MEDS ORDERED: POTASSIUM CHLORIDE 10 MEQ CONTROLLED RELEASE TAB PO ONE (09:00)
[2017-07-21] MEDS ORDERED: VANCOMYCIN INJ 1,250 MG in SODIUM CHLOR 0.9% 250 ML INJ 250 ML IV SCH (10:00)
--- NOTE | 2017-07-21 11:09 | HHI.HP ---
[facility] Primary Care Physician Admission Diagnosis hypokalemia, cellulitis, elevated LFTs, anemia-chronic Diagnoses: Chief Complaint: Edema Travel History International Travel<30 Days: No Contact w/Intl Traveler <30 Da: No Traveled to Known Affected Are: No History of Present Illness This patient is a 42-year-old female with known history of liver disease secondary to alcohol dependency. She is come to the emergency room yesterday with increased edema throughout her legs and her face. She does still drink alcohol. She has not been able to follow-up with the previous [facility] prescribed discharge plan. She says the copayment for the GI team was too much. She was in the hospital with an esophageal tear likely from vomiting in relation to liver failure. Patient says she's been adherent with her medications. She is not having constipation diarrhea or hematemesis at this time. She is not nauseated. She has been taking some antibiotics all with a history of ascites. At this point the patient's legs are quite erythematous and edematous and she appears to be in anasarca. She is admitted for evaluation treatment of the same Review of Systems Constitutional: DENIES: Diaphoretic episodes, Fatigue, Fever, Weight gain, Weight loss, Chills, Dizziness, Change in appetite, Night Sweats Endocrine: DENIES: Abnorml menstrual pattern, Heat/cold intolerance, Polydipsia , Polyuria, Polyphagia Eyes: DENIES: Blurred vision, Diplopia, Eye inflammation, Eye pain, Vision loss , Photosensitivity, Double Vision Ears, nose, mouth, throat: DENIES: Tinnitus, Hearing loss, Vertigo, Nasal discharge, Oral lesions, Throat pain, Hoarseness, Ear Pain, Running Nose, Epistaxis, Sinus Pain, Toothache, Odynophagia Respiratory: DENIES: Apneas, Cough, Snoring, Wheezing, Hemoptysis, Sputum production, Shortness of breath Cardiovascular: COMPLAINS OF: Lower Extremity Edema, DENIES: Chest pain, Palpitations, Syncope, Dyspnea on Exertion, PND, Orthopnea, Claudication Gastrointestinal: DENIES: Abdominal pain, Black stools, Bloody stools, Constipation, Diarrhea, Nausea, Vomiting, Difficulty Swallowing, Anorexia Musculoskeletal: DENIES: Joint pain, Muscle aches, Stiffness, Joint Swelling, Back pain, Neck pain Integumentary: DENIES: Abnormal pigmentation, Pruritus, Rash, Nail changes, Breast masses, Breast skin changes, Nipple discharge Hematologic/lymphatic: DENIES: Bruising, Lymphadenopathy Immunologic/allergic: DENIES: Eczema, Urticaria Neurologic: DENIES: Abnormal gait, Headache, Localized weakness, Paresthesias, Seizures, Speech Problems, Tremor, Poor Balance Psychiatric: DENIES: Anxiety, Confusion, Mood changes, Depression, Hallucinations, Agitation, Suicidal Ideation, Homicidal Ideation, Delusions Except as stated in HPI: all other systems reviewed are Neg Past Family Social History Allergies: Coded Allergies: penicillin G (Unverified Allergy, Severe, THROAT SWELLING, 07/20/17) tramadol (Unverified Allergy, Severe, 07/20/17) SEIZURE Physical Exam Vital Signs Vital Signs Date Time Temp Pulse Resp B/P (MAP) Pulse Ox O2 Delivery O2 Flow Rate FiO2 07/21/17 09:32 20 07/21/17 08:00 97.1 119 14 120/68 (85) 92 07/20/17 22:34 121 07/20/17 20:40 07/20/17 20:40 105 18 112/68 (83) 99 Room Air 07/20/17 17:20 98.8 124 16 109/70 (83) 100 Physical Exam GENERAL: This is a well-nourished, well-developed patient, with gross anasarca SKIN: Bilateral lower extremity edema with erythema HEAD: Atraumatic. Normocephalic. No temporal or scalp tenderness. EYES: Pupils equal round and reactive. Extraocular motions intact. No scleral icterus. No injection or drainage. ENT: Nose without bleeding, purulent drainage or septal hematoma. Throat without erythema, tonsillar hypertrophy or exudate. Uvula midline. Airway patent. NECK: Trachea midline. No JVD or lymphadenopathy. Supple, nontender, no meningeal signs. CARDIOVASCULAR: Regular rate and rhythm without murmurs, gallops, or rubs. RESPIRATORY: Clear to auscultation. Breath sounds equal bilaterally. No wheezes , rales, or rhonchi. GASTROINTESTINAL: Abdomen soft, non-tender, nondistended. No hepato-splenomegaly , or palpable masses. No guarding. MUSCULOSKELETAL: Extremities without clubbing, cyanosis, but there is +3 edema. No joint tenderness, effusion, or edema noted. No calf tenderness. Negative Homans sign bilaterally. NEUROLOGICAL: Awake and alert. Cranial nerves II through XII intact. Motor and sensory grossly within normal limits. Five out of 5 muscle strength in all muscle groups. Normal speech. Laboratory Laboratory Tests Test 07/20/17 18:59 07/21/17 06:35 White Blood Count 10.1 13.3 Red Blood Count 2.91 2.89 Hemoglobin 8.6 8.6 Hematocrit 26.9 27.1 Mean Corpuscular Volume 92.4 93.5 Mean Corpuscular Hemoglobin 29.4 29.9 Mean Corpuscular Hemoglobin Concent 31.9 31.9 Red Cell Distribution Width 18.4 18.3 Platelet Count 221 216 Mean Platelet Volume 8.1 8.1 Neutrophils (%) (Auto) 85.0 73.7 Lymphocytes (%) (Auto) 8.6 14.6 Monocytes (%) (Auto) 3.3 8.9 Eosinophils (%) (Auto) 1.3 1.9 Basophils (%) (Auto) 1.8 0.9 Neutrophils # (Auto) 8.6 9.8 Lymphocytes # (Auto) 0.9 1.9 Monocytes # (Auto) 0.3 1.2 Eosinophils # (Auto) 0.1 0.3 Basophils # (Auto) 0.2 0.1 CBC Comment DIFF FINAL DIFF FINAL Differential Comment Blood Urea Nitrogen 2 1 Creatinine 0.58 0.53 Random Glucose 128 104 Total Protein 5.8 5.9 Albumin 1.5 1.5 Calcium Level 7.0 7.0 Alkaline Phosphatase 167 167 Aspartate Amino Transf (AST/SGOT) 49 45 Alanine Aminotransferase (ALT/SGPT) 15 14 Total Bilirubin 3.7 5.4 Sodium Level 134 136 Potassium Level 2.1 2.0 Chloride Level 96 96 Carbon Dioxide Level 28.6 32.5 Anion Gap 9 8 Estimat Glomerular Filtration Rate 113 126 Protein Corrected Calcium 7.7 7.6 Lipase 30 Ethyl Alcohol Level LESS THAN 3 Magnesium Level 1.3 Result Diagram: 07/21/17 0635 07/21/17 0635 Imaging Last Impressions Lower Extremity Ultrasound 07/20/17 6484 Signed Impressions: Service Date/Time: Thursday, July 20, 2017 19:40 - CONCLUSION: No DVT is identified within either lower extremity. MD Betsy [place] VTE Risk Assessment Betsy VTE Risk Assessment: Mod/High Risk (score >= 2) VTE Pharm Contraindication: End Stage Liver Disease Caprini Risk Assessment Model Point Value = 1 Point Value = 2 Point Value = 3 Point Value = 5 Age 41-60 Minor surgery BMI > 25 kg/m2 Swollen legs Varicose veins or History of unexplained or recurrent spontaneous Oral contraceptives or hormone replacement Sepsis (< 1 month) Serious lung disease, including pneumonia (< 1 month) Abnormal pulmonary function Acute myocardial infarction Congestive heart failure (< 1 month) History of inflammatory bowel disease Medical patient at bed rest Age 61-74 Arthroscopic surgery Major open surgery (> 45 min) Laparoscopic surgery (> 45 min) Malignancy Confined to bed (> 72 hours) Immobilizing plaster cast Central venous access Age >= 75 History of VTE Family history of VTE Factor V Leiden Prothrombin [id number] Lupus anticoagulant Anticardiolipin antibodies Elevated serum homocysteine Heparin-induced thrombocytopenia Other congenital or acquired thrombophilia Stroke (< 1 month) Elective arthroplasty Hip, pelvis, or leg fracture Acute spinal cord injury (< 1 month) Prophylaxis Regimen Total Risk Factor Score Risk Level Prophylaxis Regimen 0-1 Low Early ambulation 2 Moderate Order ONE of the following: *Sequential Compression Device (SCD) *Heparin 5000 units SQ BID 3-4 Higher Order ONE of the following medications: *Heparin 5000 units SQ TID *Enoxaparin/Lovenox 40 mg SQ daily (WT < 150 kg, CrCl > 30 mL/min) *Enoxaparin/Lovenox 30 mg SQ daily (WT < 150 kg, CrCl > 10-29 mL/min) *Enoxaparin/Lovenox 30 mg SQ BID (WT < 150 kg, CrCl > 30 mL/min) AND/OR *Sequential Compression Device (SCD) 5 or more Highest Order ONE of the following medications: *Heparin 5000 units SQ TID (Preferred with Epidurals) *Enoxaparin/Lovenox 40 mg SQ daily (WT < 150 kg, CrCl > 30 mL/min) *Enoxaparin/Lovenox 30 mg SQ daily (WT < 150 kg, CrCl > 10-29 mL/min) *Enoxaparin/Lovenox 30 mg SQ BID (WT < 150 kg, CrCl > 30 mL/min) AND *Sequential Compression Device (SCD) Assessment and Plan Problem List: (1) Elevated LFTs ICD Code: R79.89 - Other specified abnormal findings of blood chemistry Plan: Likely due to known alcoholic liver disease We'll continue with medical management for now (2) Hypokalemia ICD Code: E87.6 - Hypokalemia Status: Acute Plan: Replace and follow trend (3) Bilateral cellulitis of lower leg ICD Code: L03.116 - Cellulitis of left lower limb; L03.115 - Cellulitis of right lower limb Status: Acute Plan: Continue with Levaquin, penicillin allergy (4) Anasarca ICD Code: R60.1 - Generalized edema Plan: DC IV fluids, likely due to liver failure We'll add spironolactone (5) Anemia ICD Code: D64.9 - Anemia, unspecified Plan: chronic disease stable follow for transfusion needs Physician Certification 2 Midnight Certification Type: Admission for Inpatient Services Order for Inpatient Services The services are ordered in accordance with Medicare regulations or non- Medicare payer requirements, as applicable. In the case of services not specified as inpatient-only, they are appropriately provided as inpatient services in accordance with the 2-midnight benchmark. Estimated LOS (days): 3 3 days is the estimated time the patient will need to remain in the hospital, assuming treatment plan goals are met and no additional complications. Post-Hospital Plan: Adele Zapata MD Jul 21, 2017 11:09
[2017-07-21] MEDS: LEVOFLOXACIN 500 MG TAB PO SCH (11:37)
[2017-07-21 12:00] VITALS: BP 119/74; PULSE 126; RESP 14; TEMP 97.6; O2SAT 93
[2017-07-21 12:01] LABS: INTERNATIONAL NORMALIZED RATIO 1.6 RATIO; PROTHROMBIN TIME - PATIENT 15.7 SEC (9.8-11.6)
[2017-07-21] MEDS: ACETAMINOPHEN/HYDROcodone 325 MG/5 MG TAB PO PRN ×2 (13:32→21:22)
[2017-07-21 16:00] VITALS: BP 122/76; PULSE 122; RESP 16; TEMP 96.8; O2SAT 94
[2017-07-21] MEDS: SPIRONOLACTONE 50 MG TAB PO SCH (18:00)
[2017-07-21 20:00] VITALS: BP 115/68; PULSE 124; RESP 19; TEMP 97.1; O2SAT 94
[2017-07-22] VITALS: BP 112/73; PULSE 111; RESP 18; TEMP 97.6; O2SAT 95
[2017-07-22 07:20] LABS: AUTOMATED NEUTROPHIL # 10.3 TH/MM3 (1.8-7.7); BASOPHIL # 0.1 TH/MM3 (0-0.2); BASOPHIL % 0.5 % (0.0-2.0); EOSINOPHIL # 0.1 TH/MM3 (0-0.4); EOSINOPHIL % 1.1 % (0.0-4.0); HEMATOCRIT 23.1 % (35.0-46.0); HEMOGLOBIN 7.5 GM/DL (11.6-15.3); LYMPH % 13.3 % (9.0-44.0); LYMPHOCYTE # 1.7 TH/MM3 (1.0-4.8); MEAN CELL VOLUME 93.3 FL (80.0-100.0); MEAN CORPUSCULAR HEMOGLOBIN 30.2 PG (27.0-34.0); MEAN CORPUSCULAR HGB CONC 32.4 % (32.0-36.0); MEAN PLATELET VOLUME 8.4 FL (7.0-11.0); MONO % 5.8 % (0.0-8.0); MONOCYTE # 0.8 TH/MM3 (0-0.9); NEUT % 79.3 % (16.0-70.0); PLATELET COUNT 188 TH/MM3 (150-450); RED BLOOD COUNT 2.47 MIL/MM3 (4.00-5.30); RED CELL DISTRIBUTION WIDTH 18.3 % (11.6-17.2)
[2017-07-22] MEDS: LEVOFLOXACIN 500 MG TAB PO SCH (07:42)
[2017-07-22] MEDS: FOLIC ACID 1 MG TAB PO SCH (07:42)
[2017-07-22] MEDS: MULTIVITAMINS/MINERALS THERAPEUTIC TAB PO SCH (07:42)
[2017-07-22] MEDS: THIAMINE HCL 100 MG TAB PO SCH (07:42)
[2017-07-22] MEDS: ACETAMINOPHEN/HYDROcodone 325 MG/5 MG TAB PO PRN ×2 (07:43→14:09)
[2017-07-22] MEDS: SPIRONOLACTONE 50 MG TAB PO SCH ×2 (07:43→17:53)
[2017-07-22] MEDS: DOCUSATE SODIUM 50 MG/SENNA 8.6 MG TAB PO SCH ×2 (07:43→20:32)
[2017-07-22] MEDS: PANTOPRAZOLE SOD 40 MG DELAYED RELEASE TAB PO SCH (07:44)
[2017-07-22] MEDS: SODIUM CHLORIDE 0.9% FLUSH 10 ML FLUSH IV FLUSH SCH ×2 (07:45→20:34)
[2017-07-22 07:54] LABS: ALBUMIN 1.4 GM/DL (3.4-5.0); BICARBONATE 29.9 MEQ/L (21.0-32.0); CALCIUM 7.4 MG/DL (8.5-10.1); CALCIUM-PROTEIN CORRECTED 8.5 MG/DL (8.5-10.1); CREATININE 0.44 MG/DL (0.50-1.00); MAGNESIUM 1.5 MG/DL (1.5-2.5); TOTAL BILIRUBIN ADULT 4.7 MG/DL (0.2-1.0); TOTAL PROTEIN 5.2 GM/DL (6.4-8.2)
[2017-07-22 08:00] VITALS: BP 92/68; PULSE 122; RESP 16; TEMP 98.1; O2SAT 92
[2017-07-22] MEDS ORDERED: FUROSEMIDE 40 MG TAB PO SCH (09:00)
[2017-07-22] MEDS ORDERED: POTASSIUM CHLORIDE 10 MEQ CONTROLLED RELEASE TAB PO SCH (09:00)
[2017-07-22 09:27] LABS: HEMATOCRIT 24.8 % (35.0-46.0)
[2017-07-22] MEDS ORDERED: POTASSIUM CHLORIDE 25 MEQ EFFERVESCENT TAB PO ONE (11:00)
[2017-07-22 12:00] VITALS: BP 100/66; PULSE 126; RESP 16; TEMP 97.9; O2SAT 92
[2017-07-22] MEDS ORDERED: SODIUM CHLOR 0.9% 250 ML INJ 250 ML IV ONE (12:00)
[2017-07-22] MEDS ORDERED: ACETAMINOPHEN 325 MG TAB PO PRN (12:00)
[2017-07-22] MEDS ORDERED: diphenhydrAMINE HCL 25 MG CAP PO PRN (12:00)
[2017-07-22] MEDS ORDERED: FUROSEMIDE 20 MG/2 ML VIAL IV PUSH PRN (12:00)
--- NOTE | 2017-07-22 12:02 | HHI.PR ---
Subjective Remarks Patient seen and evaluated today in follow-up for weakness and hypokalemia. Patient's hemoglobin is 7.5 early this morning and repeat is 8.0. Patient is tachycardic and weak would benefit from blood transfusion. Her blood pressure is running low also. Patient is agreeable to this Objective Vitals Vital Signs Date Time Temp Pulse Resp B/P (MAP) Pulse Ox O2 Delivery O2 Flow Rate FiO2 07/22/17 08:43 20 07/22/17 08:00 98.1 122 16 92/68 (76) 92 07/22/17 00:00 97.6 111 18 112/73 (86) 95 07/21/17 20:00 97.1 124 19 115/68 (84) 94 07/21/17 16:00 96.8 122 16 122/76 (91) 94 07/21/17 12:00 97.6 126 14 119/74 (89) 93 I/O 07/21/17 07/21/17 07/21/17 07/22/17 07/22/17 07/22/17 07:00 15:00 23:00 07:00 15:00 23:00 Intake Total 776 ml 1840 ml 100 ml Balance 776 ml 1840 ml 100 ml Intake IV Total 776 ml 1840 ml 100 ml # Voids 1 4 2 # Bowel Movements 0 Result Diagram: 07/22/17 0905 07/22/17 0615 Imaging Last Impressions Lower Extremity Ultrasound 07/20/17 190 Signed Impressions: Service Date/Time: Thursday, July 20, 2017 19:40 - CONCLUSION: No DVT is identified within either lower extremity. Steven Jefferson MD Objective Remarks GENERAL: This is a frail female with anasarca CARDIOVASCULAR: Regular rate and rhythm without murmurs, gallops, or rubs. RESPIRATORY: Clear to auscultation. Breath sounds equal bilaterally. No wheezes , rales, or rhonchi. GASTROINTESTINAL: Abdomen soft, non-tender, nondistended. Normal active bowel sounds MUSCULOSKELETAL: Extremities without clubbing, cyanosis, there is +2 edema with erythema. NEURO: Alert & Oriented x4 to person, place, time, situation. Moves all ext x4 A/P Problem List: (1) Elevated LFTs ICD Code: R79.89 - Other specified abnormal findings of blood chemistry Plan: Likely due to known alcoholic liver disease We'll continue with medical management for now Follow-up HIV test (2) Hypokalemia ICD Code: E87.6 - Hypokalemia Status: Acute Plan: Replace and follow trend (3) Bilateral cellulitis of lower leg ICD Code: L03.116 - Cellulitis of left lower limb; L03.115 - Cellulitis of right lower limb Status: Acute Plan: Continue with Levaquin, penicillin allergy (4) Anasarca ICD Code: R60.1 - Generalized edema Plan: likely due to liver failure We'll add spironolactone, and Lasix, keep legs elevated (5) Anemia ICD Code: D64.9 - Anemia, unspecified Plan: chronic disease Hemoglobin 7.5 today and patient will receive a blood transfusion due to hypotension and tachycardia Adele Price MD Jul 22, 2017 12:02
[2017-07-22 13:35] VITALS: BP 117/75; RESP 20; TEMP 98.2; O2SAT 92
[2017-07-22 16:00] VITALS: BP 101/62; PULSE 122; RESP 18; TEMP 98; O2SAT 92
[2017-07-22 20:00] VITALS: BP 122/76; PULSE 131; RESP 17; TEMP 98.7; O2SAT 92
[2017-07-23] VITALS: BP 118/75; PULSE 108; RESP 18; TEMP 98.5; O2SAT 94
[2017-07-23 05:20] VITALS: BP 84/55; PULSE 123; RESP 16; TEMP 97.1; O2SAT 96
[2017-07-23 06:30] VITALS: BP 95/51; PULSE 117; RESP 20; O2SAT 96
--- NOTE | 2017-07-23 11:29 | PD ---
Physical Exam Date Seen by Provider: Jul 23, 2017 Time Seen by Provider: 08:30 Narrative I was called on an emergent basis to patient's room, CODE BLUE had been initiated, apparently patient had been found in the room unresponsive, asystolic , no pulses identified. CPR had been initiated by nursing brineyard supervisor. I had taken over care for CPR. Unknown downtime, apparently patient was seen last at 7:45 AM. Bicarbonate and epinephrine was initiated. Patient's blood sugar was low and D50 was also ordered. She was given several rounds of CPR and meds, it was noted that she had fixed dilated pupils on initial evaluation as well. However, several rounds of CPR were continued and she was intubated by me. After multiple rounds of CPR, code was called at 8:41 AM. Patient continued to be asystolic the whole time. Please see code sheet for further information. GENERAL: Well-nourished, well-developed pale-appearing middle-aged patient who appears older than stated age. Obtunded. SKIN: Focused skin assessment cool/dry. HEAD: Normocephalic. EYES: No scleral icterus. No injection or drainage. Pupils are fixed and dilated, not responsive to light. NECK: trachea midline, pinkish foam from the mouth. No JVD or lymphadenopathy. CARDIOVASCULAR: Asystole. RESPIRATORY: Breath sounds equal bilaterally with bagging. GASTROINTESTINAL: Abdomen soft, moderately distended. MUSCULOSKELETAL: Cyanotic, bilateral leg edema. Data Data Last Documented VS Vital Signs Date Time Temp Pulse Resp B/P (MAP) Pulse Ox O2 Delivery O2 Flow Rate FiO2 07/20/17 20:40 07/20/17 20:40 105 18 99 Room Air 07/20/17 17:20 98.8 Orders Orders Ed Urine Pregnancytest Poc (07/20/17 17:14) Iv Access Insert/Monitor (07/20/17 18:42) Complete Blood Count With Diff (07/20/17 18:42) Comprehensive Metabolic Panel (07/20/17 18:42) Alcohol (Ethanol) (07/20/17 18:42) Vancomycin Inj (Vancomycin Inj) (07/20/17 18:45) Us Leg Venous Doppler Bilat (07/20/17 19:04) Potassium Chloride (Kcl) (07/20/17 19:30) Ns + Kcl 20 Meq Inj (Ns + Kcl 20 Meq Inj (07/20/17 19:30) Lipase (07/20/17 18:59) Potassium Chloride (Kcl) (07/20/17 21:00) Vital Signs (Adult) Q4H (07/20/17 20:41) Bedside Glucose UMESH.CSUGAR (07/20/17 20:41) Intake + Output UMESH.QSHIFT (07/20/17 20:41) Alcohol Withdrawal Asmt-Ciwa Q4HX18 (07/20/17 20:41) ^ Seizure Precautions (07/20/17 20:41) Folic Acid (Folate) (07/21/17 09:00) Thiamine (Vit B1) (Vitamin B1) (07/21/17 09:00) Multivitamins-Minerals Therap (Theragran (07/21/17 09:00) Consult Cm-Etoh Abuse Dc Plan (07/20/17 ) Flumazenil Inj (Romazicon Inj) (07/20/17 20:45) Lorazepam (Ativan) (07/20/17 20:45) Lorazepam Inj (Ativan Inj) (07/20/17 20:45) Lorazepam (Ativan) (07/20/17 20:45) Lorazepam Inj (Ativan Inj) (07/20/17 20:45) Lorazepam Inj (Ativan Inj) (07/20/17 20:45) Lorazepam Inj (Ativan Inj) (07/20/17 20:45) Haloperidol Inj (Haldol Inj) (07/20/17 20:45) Vancomycin Consult Pharmacy (Vancomycin (07/20/17 22:00) Admit To Inpatient (07/20/17 ) Vital Signs (Adult) Q4H (07/20/17 20:41) Activity Oob With Assistance (07/20/17 20:41) Group Billing Coordinator / Telemetry .CONTINUOUS (07/20/17 20:41) Intake + Output UMESH.QSHIFT (07/20/17 20:41) Diet Regular Basic (07/21/17 Breakfast) Sodium Chlor 0.9% 1000 Ml Inj (Ns 1000 M (07/20/17 20:41) Sodium Chloride 0.9% Flush (Ns Flush) (07/20/17 20:45) Sodium Chloride 0.9% Flush (Ns Flush) (07/20/17 21:00) Ondansetron Inj (Zofran Inj) (07/20/17 20:45) Comprehensive Metabolic Panel (07/21/17 06:00) Complete Blood Count With Diff (07/21/17 06:00) Case Management Consult (07/20/17 20:41) Scd Bilateral/Knee High UMESH.BID (07/20/17 20:41) Rajendra Bilateral/Knee High UMESH.QSHIFT (07/20/17 20:43) Acetaminophen (Tylenol) (07/20/17 20:45) Oxycodone (Roxicodone) (07/20/17 20:45) Oxycodone (Roxicodone) (07/20/17 20:45) Docusate Sodium-Senna (Marisol-Colace) (07/20/17 21:00) Magnesium Hydroxide Liq (Milk Of Magnesi (07/20/17 20:45) Sennosides (Senokot) (07/20/17 20:45) Bisacodyl Supp (Dulcolax Supp) (07/20/17 20:45) Lactulose Liq (Lactulose Liq) (07/20/17 20:45) Inpatient Certification (07/20/17 ) Admit Order (Ed Use Only) (07/20/17 20:47) Labs Laboratory Tests Test 07/20/17 18:59 White Blood Count 10.1 TH/MM3 Red Blood Count 2.91 MIL/MM3 Hemoglobin 8.6 GM/DL Hematocrit 26.9 % Mean Corpuscular Volume 92.4 FL Mean Corpuscular Hemoglobin 29.4 PG Mean Corpuscular Hemoglobin Concent 31.9 % Red Cell Distribution Width 18.4 % Platelet Count 221 TH/MM3 Mean Platelet Volume 8.1 FL Neutrophils (%) (Auto) 85.0 % Lymphocytes (%) (Auto) 8.6 % Monocytes (%) (Auto) 3.3 % Eosinophils (%) (Auto) 1.3 % Basophils (%) (Auto) 1.8 % Neutrophils # (Auto) 8.6 TH/MM3 Lymphocytes # (Auto) 0.9 TH/MM3 Monocytes # (Auto) 0.3 TH/MM3 Eosinophils # (Auto) 0.1 TH/MM3 Basophils # (Auto) 0.2 TH/MM3 CBC Comment DIFF FINAL Differential Comment Blood Urea Nitrogen 2 MG/DL Creatinine 0.58 MG/DL Random Glucose 128 MG/DL Total Protein 5.8 GM/DL Albumin 1.5 GM/DL Calcium Level 7.0 MG/DL Alkaline Phosphatase 167 U/L Aspartate Amino Transf (AST/SGOT) 49 U/L Alanine Aminotransferase (ALT/SGPT) 15 U/L Total Bilirubin 3.7 MG/DL Sodium Level 134 MEQ/L Potassium Level 2.1 MEQ/L Chloride Level 96 MEQ/L Carbon Dioxide Level 28.6 MEQ/L Anion Gap 9 MEQ/L Estimat Glomerular Filtration Rate 113 ML/MIN Protein Corrected Calcium 7.7 MG/DL Lipase 30 U/L Ethyl Alcohol Level LESS THAN 3 MG/DL MDM Medical Record Reviewed: Yes Supervised Visit with ISABEL: No Procedures Procedure Narrative Patient is obtunded, emergent airway obtained for airway protection: INTUBATION: The patient was put in optimal position for the procedure. MAC 4 intubating scope was used to evaluate for airway and vocal cords. The patient was intubated with a 7.5 cuffed endotracheal tube. Tube placement was confirmed by visualization of the tube and balloon passing through the cords, capnometry. Breath sounds were equal and well aerated bilaterally postintubation. No breath sounds over stomach. Diagnosis Primary Impression: Asystole Disposition: 20 Condition: Diana Mckeon MD Jul 23, 2017 11:29
--- NOTE | 2017-07-23 12:44 | HHI.DS ---
Summary Note Date of : Jul 23, 2017 Time Of : 08:43 Admission Date Jul 20, 2017 at 20:50 Admitting Diagnosis hypokalemia, cellulitis, elevated LFTs, anemia-chronic Diagnosis at Time of : (1) Elevated LFTs ICD Code: R79.89 - Other specified abnormal findings of blood chemistry (2) Hypokalemia ICD Code: E87.6 - Hypokalemia (3) Bilateral cellulitis of lower leg ICD Code: L03.116 - Cellulitis of left lower limb; L03.115 - Cellulitis of right lower limb (4) Anasarca ICD Code: R60.1 - Generalized edema (5) Anemia ICD Code: D64.9 - Anemia, unspecified Procedures none Brief History This patient is a 42-year-old female with known history of liver disease secondary to alcohol dependency. She is come to the emergency room yesterday with increased edema throughout her legs and her face. She does still drink alcohol. She has not been able to follow-up with the previous [facility] prescribed discharge plan. She says the copayment for the GI team was too much. She was in the hospital with an esophageal tear likely from vomiting in relation to liver failure. Patient says she's been adherent with her medications. She is not having constipation diarrhea or hematemesis at this time. She is not nauseated. She has been taking some antibiotics all with a history of ascites. At this point the patient's legs are quite erythematous and edematous and she appears to be in anasarca. She is admitted for evaluation treatment of the same CBC/BMP: 07/22/17 0905 07/22/17 1401 Significant Findings Laboratory Tests Test 07/20/17 18:59 07/21/17 06:35 07/22/17 06:15 07/22/17 09:05 Red Blood Count 2.91 MIL/MM3 (4.00-5.30) 2.89 MIL/MM3 (4.00-5.30) 2.47 MIL/MM3 (4.00-5.30) Hemoglobin 8.6 GM/DL (11.6-15.3) 8.6 GM/DL (11.6-15.3) 7.5 GM/DL (11.6-15.3) 8.0 GM/DL (11.6-15.3) Hematocrit 26.9 % (35.0-46.0) 27.1 % (35.0-46.0) 23.1 % (35.0-46.0) 24.8 % (35.0-46.0) Mean Corpuscular Hemoglobin Concent 31.9 % (32.0-36.0) 31.9 % (32.0-36.0) Red Cell Distribution Width 18.4 % (11.6-17.2) 18.3 % (11.6-17.2) 18.3 % (11.6-17.2) Neutrophils (%) (Auto) 85.0 % (16.0-70.0) 73.7 % (16.0-70.0) 79.3 % (16.0-70.0) Lymphocytes (%) (Auto) 8.6 % (9.0-44.0) Neutrophils # (Auto) 8.6 TH/MM3 (1.8-7.7) 9.8 TH/MM3 (1.8-7.7) 10.3 TH/MM3 (1.8-7.7) Lymphocytes # (Auto) 0.9 TH/MM3 (1.0-4.8) Blood Urea Nitrogen 2 MG/DL (7-18) 1 MG/DL (7-18) 2 MG/DL (7-18) Random Glucose 128 MG/DL (74-106) 115 MG/DL (74-106) Total Protein 5.8 GM/DL (6.4-8.2) 5.9 GM/DL (6.4-8.2) 5.2 GM/DL (6.4-8.2) Albumin 1.5 GM/DL (3.4-5.0) 1.5 GM/DL (3.4-5.0) 1.4 GM/DL (3.4-5.0) Calcium Level 7.0 MG/DL (8.5-10.1) 7.0 MG/DL (8.5-10.1) 7.4 MG/DL (8.5-10.1) Alkaline Phosphatase 167 U/L (45-117) 167 U/L (45-117) 148 U/L (45-117) Aspartate Amino Transf (AST/SGOT) 49 U/L (15-37) 45 U/L (15-37) Total Bilirubin 3.7 MG/DL (0.2-1.0) 5.4 MG/DL (0.2-1.0) 4.7 MG/DL (0.2-1.0) Sodium Level 134 MEQ/L (136-145) Potassium Level 2.1 MEQ/L (3.5-5.1) 2.0 MEQ/L (3.5-5.1) 2.6 MEQ/L (3.5-5.1) Chloride Level 96 MEQ/L (98-107) 96 MEQ/L (98-107) Protein Corrected Calcium 7.7 MG/DL (8.5-10.1) 7.6 MG/DL (8.5-10.1) Lipase 30 U/L (73-393) White Blood Count 13.3 TH/MM3 (4.0-11.0) 13.0 TH/MM3 (4.0-11.0) Monocytes (%) (Auto) 8.9 % (0.0-8.0) Monocytes # (Auto) 1.2 TH/MM3 (0-0.9) Prothrombin Time 15.7 SEC (9.8-11.6) Magnesium Level 1.3 MG/DL (1.5-2.5) Carbon Dioxide Level 32.5 MEQ/L (21.0-32.0) Creatinine 0.44 MG/DL (0.50-1.00) Test 07/22/17 14:01 Imaging Last Impressions Lower Extremity Ultrasound 07/20/17 1904 Signed Impressions: Service Date/Time: Thursday, July 20, 2017 19:40 - CONCLUSION: No DVT is identified within either lower extremity. Steven Jefferson MD Hospital Course Patient is a 42-year-old female with worsening liver failure due to alcoholic liver disease. She did have cardiac arrest this morning and subsequent asystole with respiratory failure. Despite heroic efforts and acute cardiopulmonary resuscitation protocols patient was unable to be revived. Family was notified Adele Price MD Jul 23, 2017 12:44
[2017-07-23] MEDS ORDERED: VANCOMYCIN TROUGH ONE (15:45)
== END 2017-07-23 13:15 | disposition expired | DRG 602 ==
LOC: PHED 17:11 → PHEDA 20:50 → PH3B 22:19
PROVIDERS: ADMIT Hospitalist; ATTEND Hospitalist
PROC: 30233N1 Transfusion of Nonautologous Red Blood Cells into Peripheral Vein, Percutaneous Approach (ICD-10-PCS; principal; 2017-07-22)
PROC: 5A1935Z Respiratory Ventilation, Less than 24 Consecutive Hours (ICD-10-PCS; 2017-07-23)
PROC: 5A12012 Performance of Cardiac Output, Single, Manual (ICD-10-PCS; 2017-07-23)
PROC: 0BH17EZ Insertion of Endotracheal Airway into Trachea, Via Natural or Artificial Opening (ICD-10-PCS; 2017-07-23)
DX: L03.115 Cellulitis of right lower limb (principal); J96.90 Respiratory failure, unspecified, unspecified whether with hypoxia or hypercapnia; K70.30 Alcoholic cirrhosis of liver without ascites; K70.40 Alcoholic hepatic failure without coma; I95.9 Hypotension, unspecified; L03.116 Cellulitis of left lower limb; D64.9 Anemia, unspecified; I46.9 Cardiac arrest, cause unspecified; F10.20 Alcohol dependence, uncomplicated; F32.9 Major depressive disorder, single episode, unspecified; F41.9 Anxiety disorder, unspecified; F17.210 Nicotine dependence, cigarettes, uncomplicated; H54.8 Legal blindness, as defined in USA; R00.0 Tachycardia, unspecified; R53.1 Weakness; E87.6 Hypokalemia; R60.1 Generalized edema; Z88.0 Allergy status to penicillin; Z86.73 Personal history of transient ischemic attack (TIA), and cerebral infarction without residual deficits
CPT/HCPCS: 31500; 36430; 80053; 80307; 82948; 83690; 83735; 84132; 85014; 85018; 85025; 85610; 86850; 86900; 86901; 86920; 92950; 93970; 96365; J0610; J2060; J3370; J3480; J7030; J7050; P9016